=== PATIENT | male | born 1940 | race Caucasian/White ===

== ENCOUNTER 2018-06-20 09:08 | Inpatient (IN) | payer BC, OTHER ==
[2018-06-20] MEDS ORDERED: ALBUTEROL SO4 2.5/IPRATROPIUM 0.5 INH SOL 3 ML VIAL.NEB. NEB ONE ×4 (09:58→12:01)
--- NOTE | 2018-06-20 10:20 | PDOC ---
Documentation entered by Evan Márquez SCRIBE, acting as scribe for Libby Romero MD. Libby Romero MD: This documentation has been prepared by the eunicee, Evan Márquez SCRIBE, under my direction and personally reviewed by me in its entirety. I confirm that the documentation accurately reflects all work, treatment, procedures, and medical decision making performed by me. History of Present Illness - General Chief Complaint: Shortness of Breath Stated Complaint: Shortness of Breath Time Seen by Provider: 06/20/18 09:47 - History of Present Illness Initial Comments: 06/20/18 09:52 77 yo M h/o dementia, DM , prior smoking ( quit 20 yrs ago) here from dr Recinos office c/o cough, phlegm, sob for one week. pt does not wear home Oxygen. denies cp no n/v no leg swelling. 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 Past History - Past Medical History Allergies/Adverse Reactions: Allergies Allergy/AdvReac Type Severity Reaction Status Date / Time No Known Allergies Allergy Unverified 06/20/18 09:32 Home Medications: Ambulatory Orders Alprazolam 1 mg PO TID 06/20/18 Amlodipine Besylate 5 mg PO DAILY 06/20/18 Amoxicillin - [Amoxicillin 500mg Capsule -] 500 mg PO TID 06/20/18 Atorvastatin Ca [Lipitor] 10 mg PO HS 06/20/18 Carbidopa/Levodopa [Carbidopa-Levodopa 25-100 Tab] 1 each PO TID 06/20/18 Donepezil HCl 23 mg PO HS 06/20/18 Escitalopram Oxalate [Lexapro -] 10 mg PO DAILY 06/20/18 Finasteride 5 mg PO DAILY 06/20/18 Hydroxyzine HCl 50 mg PO TID 06/20/18 Lisinopril/Hydrochlorothiazide [Lisinopril-Hctz 20-25 mg Tab] 1 each PO DAILY Pantoprazole Sodium [Protonix] 40 mg PO DAILY 06/20/18 Pregabalin [Lyrica -] 75 mg PO BID 06/20/18 traZODone HCL [Trazodone HCl] 50 mg PO DAILY 06/20/18 COPD: No Dementia: Yes Diabetes: Yes GI Disorders: Yes (GERD) Disorders: Yes (BPH) HTN: Yes Psychiatric Problems: Yes (ANXIETY,DEPRESSION) Other medical history: PARKINSONS, DIABETIC NEUROPATHY - Suicide/Smoking/Psychosocial Hx Smoking History: Former smoker Have you smoked in the past 12 months: No If you are a former smoker, when did you quit?: 2003 Information on smoking cessation initiated: No Hx Alcohol Use: No Drug/Substance Use Hx: No Review of Systems - Review of Systems Constitutional: No: Chills, Diaphoresis, Fever HEENTM: No: Eye Pain Respiratory: Yes: Cough, Shortness of Breath, Wheezing, Productive cough Cardiac (ROS): No: Chest Pain, Edema Musculoskeletal: No: Back Pain, Gout All Other Systems: Reviewed and Negative *Physical Exam - Vital Signs Last Vital Signs Temp Pulse Resp BP Pulse Ox 97.9 F 73 20 146/53 L 92 L 06/20/18 09:26 06/20/18 09:26 06/20/18 09:26 06/20/18 09:26 06/20/18 09:33 - Physical Exam General Appearance: Yes: Appropriately Dressed HEENT: positive: Normal ENT Inspection Respiratory/Chest: positive: Crackles, Wheezing Cardiovascular: positive: Regular Rhythm, Regular Rate, S1, S2 Musculoskeletal: positive: Normal Inspection Extremity: positive: Normal Capillary Refill Integumentary: positive: Normal Color, Dry, Warm Neurologic: positive: Fully Oriented, Alert, Normal Mood/Affect Heart Score/ECG Review #1 General ECG Interpretation: Sinus Rhythm, Normal Rate (67), Normal Intervals, No acute ischemic changes ED Treatment Course - LABORATORY CBC & Chemistry Diagram: 06/20/18 10:10 06/20/18 10:10 Medical Decision Making - Medical Decision Making 06/20/18 09:55 77 yo male h/o DM prior smoking, parkinsons here for cough phlegm for one week and wheezing. noted to by hypoxic to 92% on 2 L NS. 06/20/18 10:20 differential pna, copd, chf, effusion, plan cxr labs duonebs ekg bnp. 06/20/18 10:43 xray with hazy right heart border, concerns for infiltrate, left base as well. will treat with ceftriaxone azithromycin. 06/20/18 10:44 d/w dr khan, states pt may require aprazolam 1 mg at night for sleeping. h/o adverse effects (hallucinations and sleepwalking with ambien) told to admit to [facility] or erik block. 06/20/18 10:46 06/20/18 11:28 d/w dr block, who thomas admit patient for dr Khan. pt xray wit infiltrate, givein ceftriaxone and azithromycin *DC/Admit/Observation/Transfer Diagnosis at time of Disposition: Pneumonia, Hypoxia - Discharge Dispostion Decision to Admit order: Yes - Referrals Referrals: Rey Khan MD [Primary Care Provider] - - Patient Instructions - Post Discharge Activity
[2018-06-20 10:25] LABS: BASO % 0.3 % (0-2.0); HEMATOCRIT 37.8 % (35.4-49); HEMOGLOBIN 13.3 GM/dL (11.7-16.9); LYMPH % 16.8 % (8-40); MCHC 35.2 g/dl (32.0-35.9); MEAN CELL VOLUME 91.1 fl (80-96); MEAN PLT VOLUME 8.9 fl (7.5-11.1); NEUT % 65.9 % (42.8-82.8); PLATELET COUNT 148 K/MM3 (134-434); RBC 4.15 M/mm3 (4.00-5.60); RDW 12.7 % (11.9-15.9); WHITE BLOOD COUNT 5.5 K/mm3 (4.0-10.0)
[2018-06-20 10:59] LABS: ALBUMIN 3.2 g/dl (3.4-5.0); ALK PHOS 67 U/L (45-117); ANION GAP 7 MMOL/L (8-16); BILIRUBIN,TOTAL 0.4 mg/dL (0.2-1); BLOOD UREA NITROGEN 16 mg/dL (7-18); CALCIUM 8.8 mg/dL (8.5-10.1); CHLORIDE 100 mmol/L (98-107); CO2 28 mmol/L (21-32); CREATININE 1.2 mg/dL (0.55-1.3); GLUCOSE,RANDOM 221 mg/dL (74-106); POTASSIUM 3.8 mmol/L (3.5-5.1); SGOT/AST 25 U/L (15-37); SGPT/ALT 24 U/L (13-61); SODIUM 136 mmol/L (136-145); TOT PROT 6.5 g/dl (6.4-8.2)
[2018-06-20] MEDS ORDERED: CEFTRIAXONE 1,000 MG in DEXTROSE 5%-WATER - 50 ML IVPB ONE (11:22)
[2018-06-20 11:23] LABS: N-TERMINAL BNP 98.9 pg/ml (5-450)
[2018-06-20] MEDS ORDERED: AZITHROMYCIN IVPB 500 MG in DEXTROSE 5%-WATER - 250 ML IVPB ONE (11:23)
--- NOTE | 2018-06-20 11:28 | HP ---
Admitting History and Physical - Primary Care Physician PCP: Rey Crystal - Admission Chief Complaint: sob History of Present Illness: History of Present Illness Initial Comments: 06/20/18 09:52 77 yo M h/o dementia, DM , prior smoking ( quit 20 yrs ago) here from dr Recinos office c/o cough, phlegm, sob for one week. pt does not wear home Oxygen. denies cp no n/v no leg swelling. 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 Cardiovascular: Yes: HTN Psych: Yes: Anxiety, Depression - Smoking History Smoking history: Former smoker Have you smoked in the past 12 months: No If you are a former smoker, when did you quit?: 2004 - Alcohol/Substance Use Hx Alcohol Use: No Home Medications - Allergies Allergies/Adverse Reactions: Allergies Allergy/AdvReac Type Severity Reaction Status Date / Time No Known Allergies Allergy Unverified 06/20/18 09:32 - Home Medications Home Medications: Ambulatory Orders Albuterol Sulfate [Albuterol Sulfate Hfa] 18 gm IH Q6H #7 [email or web address] 06/20/18 Alprazolam 1 mg PO TID 06/20/18 Amlodipine Besylate 5 mg PO DAILY 06/20/18 Amoxicillin - [Amoxicillin 500mg Capsule -] 500 mg PO TID 06/20/18 Atorvastatin Ca [Lipitor] 10 mg PO HS 06/20/18 Azithromycin [Zithromax Tri-Ike (3 DAYS) -] 500 mg PO DAILY #3 tablet 06/20/18 Carbidopa/Levodopa [Carbidopa-Levodopa 25-100 Tab] 1 each PO TID 06/20/18 Cefuroxime Axetil [Ceftin -] 500 mg PO Q12H #20 tablet 06/20/18 Donepezil HCl 23 mg PO HS 06/20/18 Escitalopram Oxalate [Lexapro -] 10 mg PO DAILY 06/20/18 Finasteride 5 mg PO DAILY 06/20/18 Lisinopril/Hydrochlorothiazide [Lisinopril-Hctz 20-25 mg Tab] 1 each PO DAILY Pantoprazole Sodium [Protonix] 40 mg PO DAILY 06/20/18 Pregabalin [Lyrica -] 75 mg PO BID 06/20/18 traZODone HCL [Trazodone HCl] 50 mg PO DAILY 06/20/18 Review of Systems - Review of Systems Constitutional: denies: Chills, Fever Cardiovascular: reports: Shortness of Breath Respiratory: reports: Cough Physical Examination Vital Signs: Vital Signs Temperature 97.9 F 06/20/18 09:26 Pulse Rate 73 06/20/18 09:26 Respiratory Rate 20 06/20/18 09:26 Blood Pressure 146/53 L 06/20/18 09:26 O2 Sat by Pulse Oximetry (%) 92 L 06/20/18 09:33 Constitutional: Yes: No Distress, Calm, Other (labored breathing) Cardiovascular: Yes: Regular Rate and Rhythm Respiratory: Yes: Diminished, Rhonchi Gastrointestinal: Yes: Normal Bowel Sounds, Soft, Abdomen, Obese. No: Tenderness Edema: No Labs: CBC, BMP 06/20/18 10:10 06/20/18 10:10 Imaging - Results Chest X-ray: Image Reviewed EKG: Image Reviewed (nsr) Problem List - Problems (1) Parkinsons disease Code(s): G20 - PARKINSON'S DISEASE (2) Anxiety Code(s): F41.9 - ANXIETY DISORDER, UNSPECIFIED (3) Hypoxia Code(s): R09.02 - HYPOXEMIA (4) Pneumonia Code(s): J18.9 - PNEUMONIA, UNSPECIFIED ORGANISM Assessment/Plan PLAN ON Iv antibiotics , nebs scheduled Pulmonary eval Low O2 sat -- on NC here continue with meds will need CT Chest Pt is adamant to go tomorrow for a retreat with priests- he is aware of the risks - may not be ready by tomorrow considering low O2 sat - he is even willing to sign AMA I spoke with as well I left a message with DR Bonilla Bañuelos vt for DVT prophylaxis
[2018-06-20] MEDS ORDERED: CEFTRIAXONE 1 GM/50 ML BAG ONE (12:02)
[2018-06-20] MEDS ORDERED: AZITHROMYCIN IVPB 500 MG/250 ML BAG IVPB ONE (12:02)
[2018-06-20] MEDS ORDERED: ALBUTEROL SO4 2.5/IPRATROPIUM 0.5 INH SOL 3 ML VIAL.NEB. NEB PRN (12:26)
--- NOTE | 2018-06-20 12:32 | EKG ---
Test Reason : Blood Pressure : / mmHG Vent. Rate : 067 BPM Atrial Rate : 067 BPM P-R Int : 156 ms QRS Dur : 088 ms QT Int : 404 ms P-R-T Axes : 051 016 041 degrees QTc Int : 426 ms NORMAL SINUS RHYTHM NORMAL ECG NO PREVIOUS ECGS AVAILABLE Confirmed by DEBBY ARTEAGA, ISABELLE ([id number]) on 06/20/2018 12:32:26 PM Referred By: Confirmed By:ISABELLE GUARDADO MD
[2018-06-20] MEDS ORDERED: ALPRAZolam 0.25 MG TABLET PO SCH ×2 (14:00)
[2018-06-20] MEDS ORDERED: hydrOXYzine HCL 25 MG TABLET (FP) PO SCH (14:00)
[2018-06-20 14:11] VITALS: BMI 24.5
[2018-06-20] MEDS: CARBIDOPA/LEVODOPA 25/100 TABLET (FP) PO SCH ×2 (15:20→21:28)
[2018-06-20] MEDS ORDERED: PT OWN MED DRAWER 7, Y5N ONE ×2 (15:23→21:16)
--- NOTE | 2018-06-20 15:55 | PN ---
Progress Note (short form) - Note Progress Note: PULMONARY CONSULTATION DICTATED 06/20/18 IMP HYPOXEMIA /DYSPNEA/COUGH R/O LLL PNEUMONIA,?BRONCHITIS PARKINSONS ANXIETY HTN PLAN IV ABX INHALED BRONCHODILATORS SHORT COURSE OF STEROIDS O2 CHEST CT CULTURES DR MAIER Problem List - Problems (1) SOB (shortness of breath) Code(s): R06.02 - SHORTNESS OF BREATH (2) Anxiety Code(s): F41.9 - ANXIETY DISORDER, UNSPECIFIED (3) Hypoxia Code(s): R09.02 - HYPOXEMIA (4) Parkinsons disease Code(s): G20 - PARKINSON'S DISEASE (5) Pneumonia Code(s): J18.9 - PNEUMONIA, UNSPECIFIED ORGANISM
[2018-06-20] MEDS ORDERED: ALBUTEROL SO4 2.5/IPRATROPIUM 0.5 INH SOL 3 ML VIAL.NEB. NEB SCH (16:00)
[2018-06-20] MEDS ORDERED: ALBUTEROL SO4 0.083% IH SOL 2.5 MG/3 ML VIAL.NEB. NEB PRN (16:05)
[2018-06-20] MEDS: ALPRAZolam 0.25 MG TABLET PO PRN (17:01)
[2018-06-20] MEDS: methylPREDNISolone NA SUCC 40 MG/1 ML VIAL IVPUSH SCH (17:01)
--- NOTE | 2018-06-20 17:18 | CONS ---
DATE OF CONSULTATION: 06/20/2018 DATE OF DICTATION: 06/20/2018 PULMONARY CONSULTATION REFERRING PHYSICIAN: Lindy Wharton M.D. HISTORY OF PRESENT ILLNESS: The patient is a 77-year-old white male with a past medical history of anxiety, diabetes, history of tobacco use, quit 20 years ago, admitted to [facility] with complaint of 1-week history of increasing shortness of breath, cough, chest congestion, sputum production. Patient states he was doing well for approximately a week when he started developing increasing shortness of breath, cough productive of white sputum. Denied any hemoptysis. He had also noted increasing wheezing and chest congestion. Initially he did not seek medical attention. He went to see PMD with the above complaints, at which time he was advised to go to the emergency room. In the ER , he had a chest x-ray performed which revealed possible left lower lobe pneumonia. He was started on antibiotics and transferred up to medical floor for further management. PAST MEDICAL HISTORY: Again includes dementia, diabetes, Parkinson's, hypertension, anxiety, depression. 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 REVIEW OF SYSTEMS: Positive cough. Positive chest congestion. No fever. No chills. Positive shortness of breath. No hemoptysis. No abdominal pain. No nausea, no vomiting. MEDICATION: Prior to admission include albuterol, alprazolam, amoxicillin, amlodipine, Zithromax, levodopa, Ceftin, donepezil, lisinopril, hydrochlorothiazide, pantoprazole, Lyrica and trazodone. Current medications include Zithromax, Prinivil, ceftriaxone, Lyrica, Lovenox, Desyrel, Xanax, DuoNeb, Norvasc, Sinemet , and Protonix, Proscar, hydrochlorothiazide. PHYSICAL EXAMINATION: GENERAL: The patient is a well-developed, well-nourished male, awake, alert, in no acute distress. He is afebrile. VITAL SIGNS: Blood pressure 148/58, respiratory rate 22, mildly dyspneic, and O2 saturation is 91% on 2 L. HEENT: Normocephalic, atraumatic. NECK: Supple. HEART: Regular S1, S2. CHEST: Bilateral rhonchi and wheezes. ABDOMEN: Soft, bowel sounds positive. EXTREMITIES: No cyanosis, edema. LABORATORY: WBC is 5.5, hemoglobin 13.3, hematocrit 37.8 with platelet count of 148,000. BUN 16, creatinine 1.2. Chest x-ray questionable infiltrates versus atelectasis left base. IMPRESSION: Hypoxemia, cough, chest congestion, likely: 1. Rule out pneumonia, left lower lobe . 2. Acute bronchitis. 3. Parkinson's. 4. Anxiety. 5. Hypertension. PLAN: IV antibiotics. Inhaled bronchodilator. Supplemental O2. Short course of Medrol. Chest CT. Obtain cultures. SHI MAIER M.D. [id number] MTDD
[2018-06-20] MEDS: ALBUTEROL SO4 2.5/IPRATROPIUM 0.5 INH SOL 3 ML VIAL.NEB. NEB SCH (20:15)
[2018-06-20] MEDS: ATORVASTATIN CA 10 MG TABLET (FP) PO SCH (21:28)
[2018-06-20] MEDS: PREGABALIN 75 MG CAPSULE PO SCH (21:28)
[2018-06-20] MEDS ORDERED: PATIENT'S OWN MEDICATION (NON-FORMULARY) (Donepezil Hcl [Donepezil Hcl] 23 MG) PO SCH (22:00)
[2018-06-21] MEDS: ALPRAZolam 0.25 MG TABLET PO PRN ×2 (00:59→17:26)
[2018-06-21] MEDS: methylPREDNISolone NA SUCC 40 MG/1 ML VIAL IVPUSH SCH ×3 (02:31→17:20)
[2018-06-21] MEDS ORDERED: PT OWN MED DRAWER 7, Y5N ONE ×3 (05:08→14:44)
[2018-06-21] MEDS: CARBIDOPA/LEVODOPA 25/100 TABLET (FP) PO SCH ×3 (05:28→21:55)
[2018-06-21 07:14] LABS: BASO % 0.1 % (0-2.0); HEMATOCRIT 37.7 % (35.4-49); HEMOGLOBIN 13.5 GM/dL (11.7-16.9); LYMPH % 9.8 % (8-40); MCH 32.1 pg (25.7-33.7); MCHC 35.9 g/dl (32.0-35.9); MEAN CELL VOLUME 89.3 fl (80-96); MONO % 3.1 % (3.8-10.2); PLATELET COUNT 150 K/MM3 (134-434); RBC 4.22 M/mm3 (4.00-5.60); RDW 12.3 % (11.9-15.9)
[2018-06-21] MEDS: ALBUTEROL SO4 2.5/IPRATROPIUM 0.5 INH SOL 3 ML VIAL.NEB. NEB SCH ×4 (07:25→20:15)
[2018-06-21 07:50] LABS: ALBUMIN 3.3 g/dl (3.4-5.0); ALK PHOS 68 U/L (45-117); ANION GAP 7 MMOL/L (8-16); BILIRUBIN,TOTAL 0.4 mg/dL (0.2-1); BLOOD UREA NITROGEN 20 mg/dL (7-18); CALCIUM 9.4 mg/dL (8.5-10.1); CHLORIDE 101 mmol/L (98-107); CO2 28 mmol/L (21-32); CREATININE 1.1 mg/dL (0.55-1.3); POTASSIUM 4.1 mmol/L (3.5-5.1); SGOT/AST 18 U/L (15-37); SGPT/ALT 12 U/L (13-61); SODIUM 136 mmol/L (136-145)
[2018-06-21] MEDS ORDERED: cefTRIAXone SODIUM 1 GM VIAL ONE (08:17)
[2018-06-21] MEDS ORDERED: DEXTROSE 5%-WATER - 50 ML IVPB ONE (08:17)
[2018-06-21] MEDS: FINASTERIDE 5 MG TABLET (FP) PO SCH (09:03)
[2018-06-21] MEDS: HYDROCHLOROTHIAZIDE 25 MG TABLET (FP) PO SCH (09:03)
[2018-06-21] MEDS: amLODIPine BESYLATE 5 MG TABLET (FP) PO SCH (09:03)
[2018-06-21] MEDS: ENOXAPARIN NA (PORCINE) 40 MG/0.4 ML DISP.SYRIN SQ SCH (09:03)
[2018-06-21] MEDS: LISINOPRIL 20 MG TABLET (FP) PO SCH (09:03)
[2018-06-21] MEDS: ESCITALOPRAM OXALATE 10 MG TABLET (FP) PO SCH (09:03)
[2018-06-21] MEDS: PANTOPRAZOLE 40 MG TABLET (FP) PO SCH (09:03)
[2018-06-21] MEDS: PREGABALIN 75 MG CAPSULE PO SCH ×2 (09:03→21:56)
[2018-06-21] MEDS: AZITHROMYCIN IVPB 500 MG/250 ML BAG IVPB SCH (09:04)
[2018-06-21 09:41] LABS: GLUCOSE,RANDOM 367 mg/dL (74-106)
[2018-06-21] MEDS ORDERED: AZITHROMYCIN IVPB 500 MG/250 ML BAG IVPB SCH (10:00)
[2018-06-21] MEDS ORDERED: CEFTRIAXONE 1 GM in DEXTROSE 5%-WATER - 50 ML IVPB SCH (10:00)
[2018-06-21] MEDS: CEFTRIAXONE 1 GM in DEXTROSE 5%-WATER - 50 ML IVPB SCH (10:30)
--- NOTE | 2018-06-21 11:15 | PN ---
Progress Note (short form) - Note Progress Note: PULMONARY Denies shortness of breath. +nonproductive cough. No fevers or chills. Wants to go home. CT chest reviewed, showing patchy infiltrates and nonspecific nodules. Vital Signs Period Temp Pulse Resp BP Sys/Bryant Pulse Ox Last 24 Hr 97.6 F-99.0 F 60-79 20-22 133-154/52-70 90-91 Gen: NAD at rest Heart: RRR Lung: distant breath sounds Abd: soft, nontender Ext: no edema CBC, BMP 06/21/18 06:30 06/21/18 06:30 Active Medications Albuterol Sulfate (Ventolin 0.083% Nebulizer Soln -) 1 amp NEB Q4H PRN PRN Reason: SHORT OF BREATH/WHEEZING Albuterol/Ipratropium (Duoneb -) 1 amp NEB RQID [facility] Last Admin: 06/21/18 07:25 Dose: 1 amp Alprazolam (Xanax -) 1 mg PO Q8H PRN PRN Reason: ANXIETY Last Admin: 06/21/18 00:59 Dose: 1 mg Amlodipine Besylate (Norvasc -) 5 mg PO DAILY [facility] Last Admin: 06/21/18 09:03 Dose: 5 mg Atorvastatin Calcium (Lipitor -) 10 mg PO HS [facility] Last Admin: 06/20/18 21:28 Dose: 10 mg Carbidopa/Levodopa (Sinemet 25/100 -) 1 each PO TID [facility] Last Admin: 06/21/18 05:28 Dose: 1 each Enoxaparin Sodium (Lovenox -) 40 mg SQ DAILY [facility] Last Admin: 06/21/18 09:03 Dose: 40 mg Escitalopram Oxalate (Lexapro -) 10 mg PO DAILY [facility] Last Admin: 06/21/18 09:03 Dose: 10 mg Finasteride (Proscar -) 5 mg PO DAILY [facility] Last Admin: 06/21/18 09:03 Dose: 5 mg Hydrochlorothiazide (Hctz -) 25 mg PO DAILY [facility] Last Admin: 06/21/18 09:03 Dose: 25 mg Azithromycin (Zithromax 500mg Ivpb (Pre-Docked)) 500 mg in 250 mls @ 250 mls/ hr IVPB DAILY@0900 [facility] Last Admin: 06/21/18 09:04 Dose: 250 mls/hr Ceftriaxone Sodium 1 gm/ (Dextrose) 50 mls @ 100 mls/hr IVPB DAILY@0900 [facility] Last Admin: 06/21/18 10:30 Dose: 100 mls/hr Lisinopril (Prinivil) 20 mg PO DAILY [facility] Last Admin: 06/21/18 09:03 Dose: 20 mg Methylprednisolone Sodium Succinate (Solu-Medrol -) 40 mg IVPUSH Q8H-IV [facility] Last Admin: 06/21/18 09:03 Dose: 40 mg Non-Formulary Medication (Donepezil Hcl [Donepezil Hcl]) 23 mg PO HS [facility] Pantoprazole Sodium (Protonix -) 40 mg PO DAILY [facility] Last Admin: 06/21/18 09:03 Dose: 40 mg Pregabalin (Lyrica -) 75 mg PO BID [facility] Last Admin: 06/21/18 09:03 Dose: 75 mg Trazodone HCl (Desyrel -) 50 mg PO [facility] A/P Pneumonia r/o Acute COPD Exacerbation Parkinsons HTN Anxiety - can change steroids to PO prednisone 40mg daily and taper as outpt - inhaled bronchodilators - antibiotics - O2 to keep Spo2 >90% - check ambulatory SpO2 on room air to assess for home O2 - outpt PFTs - will need outpt f/u of chest imaging - can be discharged on prednisone and antibiotics pending home O2 evaluation from pulmonary standpoint
--- NOTE | 2018-06-21 13:04 | PN ---
Progress Note (short form) - Note Progress Note: at bedside Pt is on 2 L NC-- O2 sat 91-92% RA O2 sat 88% Vital Signs - 24 hr 06/20/18 06/20/18 06/20/18 14:00 17:26 21:00 Temperature 97.8 F 99.0 F Pulse Rate 78 71 Respiratory 22 H 20 20 Rate Blood Pressure 148/58 L 133/52 L O2 Sat by Pulse 91 L 90 L Oximetry (%) 06/20/18 06/21/18 06/21/18 21:33 06:00 09:00 Temperature 98.5 F 97.6 F Pulse Rate 79 60 Respiratory 20 20 Rate Blood Pressure 154/60 151/70 O2 Sat by Pulse 90 L Oximetry (%) 06/21/18 10:00 Temperature 98.1 F Pulse Rate 89 Respiratory 20 Rate Blood Pressure 144/68 O2 Sat by Pulse Oximetry (%) Current Medications Generic Name Dose Route Start Last Admin Trade Name Freq PRN Reason Stop Dose Admin Albuterol Sulfate 1 amp 06/20/18 16:05 Ventolin 0.083% Nebulizer Soln - NEB Q4H PRN SHORT OF BREATH/WHEEZING Albuterol/Ipratropium 1 amp 06/20/18 20:00 06/21/18 11:35 Duoneb - NEB 1 amp RQID [facility] Administration Alprazolam 1 mg 06/20/18 13:50 06/21/18 00:59 Xanax - PO 1 mg Q8H PRN Administration ANXIETY Amlodipine Besylate 5 mg 06/21/18 10:00 06/21/18 09:03 Norvasc - PO 5 mg DAILY [facility] Administration Atorvastatin Calcium 10 mg 06/20/18 22:00 06/20/18 21:28 Lipitor - PO 10 mg HS [facility] Administration Carbidopa/Levodopa 1 each 06/20/18 14:00 06/21/18 05:28 Sinemet 25/100 - PO 1 each TID [facility] Administration Enoxaparin Sodium 40 mg 06/21/18 10:00 06/21/18 09:03 Lovenox - SQ 40 mg DAILY [facility] Administration Escitalopram Oxalate 10 mg 06/21/18 10:00 06/21/18 09:03 Lexapro - PO 10 mg DAILY [facility] Administration Finasteride 5 mg 06/21/18 10:00 06/21/18 09:03 Proscar - PO 5 mg DAILY [facility] Administration Hydrochlorothiazide 25 mg 06/21/18 10:00 06/21/18 09:03 Hctz - PO 25 mg DAILY [facility] Administration Azithromycin 500 mg in 250 mls @ 250 mls/hr 06/21/18 09:00 06/21/18 09:04 Zithromax 500mg Ivpb (Pre-Docked) IVPB 250 mls/hr DAILY@0900 [facility] Administration Ceftriaxone Sodium 1 gm/ 50 mls @ 100 mls/hr 06/21/18 09:00 06/21/18 10:30 Dextrose IVPB 100 mls/hr DAILY@0900 [facility] Administration Lisinopril 20 mg 06/21/18 10:00 06/21/18 09:03 Prinivil PO 20 mg DAILY [facility] Administration Methylprednisolone Sodium Succinate 40 mg 06/20/18 18:00 06/21/18 09:03 Solu-Medrol - IVPUSH 40 mg Q8H-IV [facility] Administration Non-Formulary Medication 23 mg 06/20/18 22:00 Donepezil Hcl [Donepezil Hcl] PO [facility] Pantoprazole Sodium 40 mg 06/21/18 10:00 06/21/18 09:03 Protonix - PO 40 mg DAILY [facility] Administration Pregabalin 75 mg 06/20/18 22:00 06/21/18 09:03 Lyrica - PO 75 mg BID [facility] Administration Trazodone HCl 50 mg 06/21/18 22:00 Desyrel - PO HS [facility] Laboratory Results - last 24 hr 06/21/18 06/21/18 06:30 06:30 WBC 5.0 RBC 4.22 Hgb 13.5 Hct 37.7 MCV 89.3 MCH 32.1 MCHC 35.9 RDW 12.3 Plt Count 150 MPV 9.0 Absolute Neuts (auto) 4.4 Neutrophils % 87.0 H D Lymphocytes % 9.8 D Monocytes % 3.1 L Eosinophils % 0.0 D Basophils % 0.1 Nucleated RBC % 0 Sodium 136 Potassium 4.1 Chloride 101 Carbon Dioxide 28 Anion Gap 7 L BUN 20 H Creatinine 1.1 Creat Clearance w eGFR 64.74 Random Glucose 367 H* Calcium 9.4 Total Bilirubin 0.4 AST 18 ALT 12 L Alkaline Phosphatase 68 Total Protein 7.0 Albumin 3.3 L No pallor labored breathing cough+ S1 S2 RRR Lungs ronchi + decreased Abd- soft, NT no edema PLAN Continue with iv antibiotics,Nebs, O2 check if pt needs home O2 I convinced him to stay till Monday-- pt is still tachypneic, low O2 sat -- does not appear to be a safe discharge today elevated sugars-- check BGM, check A1C Pulmonary eval noted -- on IV solumedrol Neurology eval for Parkinsons, Dementia CT chest noted-- spoke with -- will need to repeat in 3 weeks after antibiotics completed Problem List - Problems (1) Parkinsons disease Code(s): G20 - PARKINSON'S DISEASE (2) Anxiety Code(s): F41.9 - ANXIETY DISORDER, UNSPECIFIED (3) Hypoxia Code(s): R09.02 - HYPOXEMIA (4) Pneumonia Code(s): J18.9 - PNEUMONIA, UNSPECIFIED ORGANISM
[2018-06-21 17:03] LABS: ARTERIAL BLD GAS O2 SATURATION 90.6 % (95-98); ARTERIAL BLOOD GAS BASE EXCESS -4.2 meq/l (-2-2); ARTERIAL BLOOD GAS PCO2 33.2 mmHg (35-45); ARTERIAL BLOOD GAS PO2 63.4 mmHg (80-105); ARTERIAL BLOOD GAS pH 7.39 (7.35-7.45)
[2018-06-21 17:05] LABS: ALLENS TEST POSITIVE
[2018-06-21 19:24] LABS: ANION GAP 15 MMOL/L (8-16); BLOOD UREA NITROGEN 27 mg/dL (7-18); CALCIUM 9.4 mg/dL (8.5-10.1); CHLORIDE 97 mmol/L (98-107); CO2 21 mmol/L (21-32); CREATININE 1.6 mg/dL (0.55-1.3); POTASSIUM 3.7 mmol/L (3.5-5.1); SODIUM 132 mmol/L (136-145)
[2018-06-21 19:31] LABS: GLUCOSE,RANDOM 769 mg/dL (74-106)
[2018-06-21] MEDS ORDERED: INSULIN (NOVOLOG) ASPART 100 UNITS/ML 10ML VIAL SQ STA (19:34)
[2018-06-21] MEDS ORDERED: diphenhydrAMINE HCL 25 MG CAPSULE (FP) PO ONE (19:48)
[2018-06-21] MEDS: ATORVASTATIN CA 10 MG TABLET (FP) PO SCH (21:56)
[2018-06-21] MEDS: traZODone HCL 50 MG TABLET (FP) PO SCH (21:56)
[2018-06-22] MEDS ORDERED: INSULIN (NOVOLOG) ASPART 100 UNITS/ML 10ML VIAL SQ STA (01:02)
[2018-06-22] MEDS: methylPREDNISolone NA SUCC 40 MG/1 ML VIAL IVPUSH SCH ×2 (01:09→10:41)
[2018-06-22] MEDS: ALPRAZolam 0.25 MG TABLET PO PRN ×3 (01:09→21:34)
[2018-06-22] MEDS: CARBIDOPA/LEVODOPA 25/100 TABLET (FP) PO SCH ×3 (05:48→21:36)
[2018-06-22] MEDS ORDERED: INSULIN (NOVOLOG) ASPART 100 UNITS/ML 10ML VIAL SQ ONE ×3 (05:54→23:33)
[2018-06-22] MEDS: ALBUTEROL SO4 2.5/IPRATROPIUM 0.5 INH SOL 3 ML VIAL.NEB. NEB SCH ×4 (07:45→20:42)
[2018-06-22] MEDS ORDERED: cefTRIAXone SODIUM 1 GM VIAL ONE ×2 (08:56→10:37)
[2018-06-22] MEDS ORDERED: DEXTROSE 5%-WATER - 50 ML IVPB ONE ×2 (08:56→10:38)
[2018-06-22] MEDS: AZITHROMYCIN IVPB 500 MG/250 ML BAG IVPB SCH (08:58)
[2018-06-22] MEDS: CEFTRIAXONE 1 GM in DEXTROSE 5%-WATER - 50 ML IVPB SCH (10:39)
[2018-06-22] MEDS: ENOXAPARIN NA (PORCINE) 40 MG/0.4 ML DISP.SYRIN SQ SCH (10:40)
[2018-06-22] MEDS: PREGABALIN 75 MG CAPSULE PO SCH ×2 (10:40→21:34)
[2018-06-22] MEDS: LISINOPRIL 20 MG TABLET (FP) PO SCH (10:41)
[2018-06-22] MEDS: ESCITALOPRAM OXALATE 10 MG TABLET (FP) PO SCH (10:42)
[2018-06-22] MEDS: PANTOPRAZOLE 40 MG TABLET (FP) PO SCH (10:42)
[2018-06-22] MEDS: HYDROCHLOROTHIAZIDE 25 MG TABLET (FP) PO SCH (10:42)
[2018-06-22] MEDS: amLODIPine BESYLATE 5 MG TABLET (FP) PO SCH (10:42)
[2018-06-22] MEDS: FINASTERIDE 5 MG TABLET (FP) PO SCH (10:43)
[2018-06-22] MEDS ORDERED: INSULIN (LEVEMIR) 100 UNITS/ML UNITS SQ ONE (11:06)
--- NOTE | 2018-06-22 11:14 | PN ---
Progress Note (short form) - Note Progress Note: pt seen/ examined chart reviewed. awake. feels better decreased sob. denies cp chart reviewed Vital Signs Temp 97.6 F 06/22/18 10:00 Pulse 62 06/22/18 10:00 Resp 20 06/22/18 10:00 BP 137/60 06/22/18 10:00 Pulse Ox 98 06/22/18 09:00 Intake & Output 06/21/18 06/21/18 06/22/18 11:59 23:59 11:59 Intake Total 200 1050 50 Output Total 1000 1100 Balance -800 -50 50 Intake: IVPB 300 Oral 200 750 50 Output: Urine 1000 1100 Void 1000 1100 Other: Voiding Method Toilet Toilet Toilet # Unmeasured Voids Void 2 1 Bowel Movement No Yes # Bowel Movements 1 Active Medications Albuterol Sulfate (Ventolin 0.083% Nebulizer Soln -) 1 amp NEB Q4H PRN PRN Reason: SHORT OF BREATH/WHEEZING Albuterol/Ipratropium (Duoneb -) 1 amp NEB RQID [facility] Last Admin: 06/22/18 07:45 Dose: 1 amp Alprazolam (Xanax -) 1 mg PO Q8H PRN PRN Reason: ANXIETY Last Admin: 06/22/18 01:09 Dose: 1 mg Amlodipine Besylate (Norvasc -) 5 mg PO DAILY [facility] Last Admin: 06/22/18 10:42 Dose: 5 mg Atorvastatin Calcium (Lipitor -) 10 mg PO HS [facility] Last Admin: 06/21/18 21:56 Dose: 10 mg Carbidopa/Levodopa (Sinemet 25/100 -) 1 each PO TID [facility] Last Admin: 06/22/18 05:48 Dose: 1 each Enoxaparin Sodium (Lovenox -) 40 mg SQ DAILY [facility] Last Admin: 06/22/18 10:40 Dose: 40 mg Escitalopram Oxalate (Lexapro -) 10 mg PO DAILY [facility] Last Admin: 06/22/18 10:42 Dose: 10 mg Finasteride (Proscar -) 5 mg PO DAILY [facility] Last Admin: 06/22/18 10:43 Dose: 5 mg Hydrochlorothiazide (Hctz -) 25 mg PO DAILY [facility] Last Admin: 06/22/18 10:42 Dose: 25 mg Azithromycin (Zithromax 500mg Ivpb (Pre-Docked)) 500 mg in 250 mls @ 250 mls/ hr IVPB DAILY@0900 [facility] Last Admin: 06/22/18 08:58 Dose: 250 mls/hr Ceftriaxone Sodium 1 gm/ (Dextrose) 50 mls @ 100 mls/hr IVPB DAILY@0900 [facility] Last Admin: 06/22/18 10:39 Dose: 100 mls/hr Insulin Detemir (Levemir Vial) 10 units SQ ONCE ONE Stop: 06/22/18 11:07 Insulin Detemir (Levemir Vial) 10 units SQ HS [facility] Lisinopril (Prinivil) 20 mg PO DAILY [facility] Last Admin: 06/22/18 10:41 Dose: 20 mg Methylprednisolone Sodium Succinate (Solu-Medrol -) 40 mg IVPUSH BID [facility] Non-Formulary Medication (Donepezil Hcl [Donepezil Hcl]) 23 mg PO [facility] Pantoprazole Sodium (Protonix -) 40 mg PO DAILY [facility] Last Admin: 06/22/18 10:42 Dose: 40 mg Pregabalin (Lyrica -) 75 mg PO BID [facility] Last Admin: 06/22/18 10:40 Dose: 75 mg Trazodone HCl (Desyrel -) 50 mg PO HS [facility] Last Admin: 06/21/18 21:56 Dose: 50 mg CBC, BMP 06/21/18 06:30 06/21/18 18:15 bgm -- reviewed Microbiology 06/20/18 10:15 Blood Culture - Preliminary Blood - Peripheral Venous NO GROWTH OBTAINED AFTER 48 HOURS, INCUBATION TO CONTINUE FOR 3 DAYS. 06/20/18 10:15 Blood Culture - Preliminary Blood - Peripheral Venous NO GROWTH OBTAINED AFTER 48 HOURS, INCUBATION TO CONTINUE FOR 3 DAYS. 06/20/18 14:25 Legionella Antigen - Final Urine For Antigen Detection Streptococcus pneumoniae Antigen (M - Final Physical Exam S1 S2 RRR Lungs ronchi -- Abd- soft, NT no edema. Alert/ awake Problem List - Problems (1) Parkinsons disease Code(s): G20 - PARKINSON'S DISEASE (2) Anxiety Code(s): F41.9 - ANXIETY DISORDER, UNSPECIFIED (3) Hypoxia Code(s): R09.02 - HYPOXEMIA (4) Pneumonia Code(s): J18.9 - PNEUMONIA, UNSPECIFIED ORGANISM A/P Better Taper steroids abx repeat ct cheat in month or so add basal insulin monitor bgm daily oob - chair will follow
[2018-06-22] MEDS ORDERED: PT OWN MED DRAWER 7, Y5N ONE (15:01)
--- NOTE | 2018-06-22 16:01 | PN ---
Progress Note (short form) - Note Progress Note: PULMONARY OOB to chair appears stable vss/afebrile Gen: NAD at rest Heart: RRR Lung: distant breath sounds Abd: soft, nontender Ext: no edema labs/meds/notes reviewed A/P Pneumonia r/o Acute COPD Exacerbation Parkinsons HTN Anxiety - PO prednisone 40mg daily - inhaled bronchodilators - antibiotics - O2 to keep Spo2 >90% - outpt PFTs - will need outpt f/u of chest imaging - can be discharged on prednisone and antibiotics - will repeat spo2/pre/post R DAVE ARTEAGA
[2018-06-22] MEDS: predniSONE 10 MG TABLET (UD) PO SCH (16:25)
[2018-06-22] MEDS: INSULIN SLIDING SCALE (NOVOLOG) 1 VIAL SQ SCH (16:25)
--- NOTE | 2018-06-22 17:08 | CON.NEURO ---
Consult Consult Specialty:: NEUROLOGY-JESÚS ARTEAGA - History of Present Illness History of Present Illness: 77 yo M h/o dementia, DM , prior smoking ( quit 20 yrs ago) here from dr Recinos office c/o cough, phlegm, sob for one week. pt does not wear home Oxygen. denies cp no n/v no leg swelling. 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 He has a long hx. of PD, well treated with Sinemet. He has had persistent hyperglycemia and admitted with pneumonia. States he fels 'confused". No other complaints. - Past Medical History [employer]: Yes: Parkinson's Cardio/Vascular: Yes: HTN Psych: Yes: Anxiety, Depression - Alcohol/Substance Use Hx Alcohol Use: No - Smoking History Smoking history: Former smoker Have you smoked in the past 12 months: No If you are a former smoker, when did you quit?: 2003 Home Medications - Allergies Allergies/Adverse Reactions: Allergies Allergy/AdvReac Type Severity Reaction Status Date / Time No Known Allergies Allergy Unverified 06/20/18 09:32 - Home Medications Home Medications: Ambulatory Orders Albuterol Sulfate [Albuterol Sulfate Hfa] 18 gm IH Q6H #7 hfa.aer.ad 06/20/18 Alprazolam 1 mg PO TID 06/20/18 Amlodipine Besylate 5 mg PO DAILY 06/20/18 Amoxicillin - [Amoxicillin 500mg Capsule -] 500 mg PO TID 06/20/18 Atorvastatin Ca [Lipitor] 10 mg PO HS 06/20/18 Azithromycin [Zithromax Tri-Ike (3 DAYS) -] 500 mg PO DAILY #3 tablet 06/20/18 Carbidopa/Levodopa [Carbidopa-Levodopa 25-100 Tab] 1 each PO TID 06/20/18 Cefuroxime Axetil [Ceftin -] 500 mg PO Q12H #20 tablet 06/20/18 Donepezil HCl 23 mg PO HS 06/20/18 Escitalopram Oxalate [Lexapro -] 10 mg PO DAILY 06/20/18 Finasteride 5 mg PO DAILY 06/20/18 Lisinopril/Hydrochlorothiazide [Lisinopril-Hctz 20-25 mg Tab] 1 each PO DAILY Pantoprazole Sodium [Protonix] 40 mg PO DAILY 06/20/18 Pregabalin [Lyrica -] 75 mg PO BID 06/20/18 traZODone HCL [Trazodone HCl] 50 mg PO DAILY 06/20/18 Physical Exam-Neuro Vital Signs: Vital Signs Temperature 97.9 F 06/22/18 13:56 Pulse Rate 65 06/22/18 13:56 Respiratory Rate 20 06/22/18 13:56 Blood Pressure 138/55 L 06/22/18 13:56 O2 Sat by Pulse Oximetry (%) 98 06/22/18 09:00 Labs: CBC, BMP 06/21/18 06:30 06/21/18 18:15 - Neuro Exam Level Of Consciousness: Yes: Oriented to Person, Oriented to Place Eyes: Yes: DONYA Speech: WNL Mini Mental Exam: Inattentive, impaired STM/concentration. DTR's: 1+ Left Bicep, 1+ Right Bicep, 1+ Left Tricep, 1+ Right Tricep, 1+ Left Brachioradialis, 1+ Right Brachioradialis Response to light touch: Normal Response to pain prick: Normal Motor Strength: 5/5: Left Arm, Right Arm, Left Leg, Right Leg Gait: Normal (No tremors, no cogwheel rigidity noted.) Assessment/Plan Pt. with PD, mild associated dementia, now appears encephalopathic, likely due to comb.of hyperglycemia/pneumonia. Would cont. current Sinemet regimen, mental status will likely improve as both these entities improve. Thank you, Jose C Beth MD
[2018-06-22] MEDS: traZODone HCL 50 MG TABLET (FP) PO SCH (21:34)
[2018-06-22] MEDS: ATORVASTATIN CA 10 MG TABLET (FP) PO SCH (21:35)
[2018-06-22] MEDS ORDERED: INSULIN (LEVEMIR) 100 UNITS/ML UNITS SQ SCH (22:00)
[2018-06-22] MEDS ORDERED: methylPREDNISolone NA SUCC 40 MG/1 ML VIAL IVPUSH SCH (22:00)
[2018-06-23] MEDS ORDERED: MELATONIN 5 MG TABLETS PO ONE (00:58)
[2018-06-23] MEDS: CARBIDOPA/LEVODOPA 25/100 TABLET (FP) PO SCH ×3 (06:06→22:38)
[2018-06-23] MEDS: INSULIN SLIDING SCALE (NOVOLOG) 1 VIAL SQ SCH ×3 (06:10→16:25)
[2018-06-23 08:05] LABS: BASO % 0.1 % (0-2.0); HEMATOCRIT 35.9 % (35.4-49); HEMOGLOBIN 12.9 GM/dL (11.7-16.9); LYMPH % 5.7 % (8-40); MCH 32.2 pg (25.7-33.7); MCHC 35.9 g/dl (32.0-35.9); MEAN CELL VOLUME 89.8 fl (80-96); MEAN PLT VOLUME 9.7 fl (7.5-11.1); MONO % 5.9 % (3.8-10.2); NEUT % 88.3 % (42.8-82.8); PLATELET COUNT 185 K/MM3 (134-434); RDW 12.4 % (11.9-15.9); WHITE BLOOD COUNT 10.4 K/mm3 (4.0-10.0)
[2018-06-23] MEDS ORDERED: DEXTROSE 5%-WATER - 50 ML IVPB ONE (08:19)
[2018-06-23] MEDS ORDERED: cefTRIAXone SODIUM 1 GM VIAL ONE (08:19)
[2018-06-23] MEDS: CEFTRIAXONE 1 GM in DEXTROSE 5%-WATER - 50 ML IVPB SCH (08:22)
[2018-06-23] MEDS: AZITHROMYCIN IVPB 500 MG/250 ML BAG IVPB SCH (08:22)
[2018-06-23] MEDS: ALBUTEROL SO4 2.5/IPRATROPIUM 0.5 INH SOL 3 ML VIAL.NEB. NEB SCH ×4 (08:31→20:30)
[2018-06-23] MEDS: LISINOPRIL 20 MG TABLET (FP) PO SCH (08:59)
[2018-06-23] MEDS: ENOXAPARIN NA (PORCINE) 40 MG/0.4 ML DISP.SYRIN SQ SCH (08:59)
[2018-06-23] MEDS: PANTOPRAZOLE 40 MG TABLET (FP) PO SCH (08:59)
[2018-06-23] MEDS: HYDROCHLOROTHIAZIDE 25 MG TABLET (FP) PO SCH (08:59)
[2018-06-23] MEDS: PREGABALIN 75 MG CAPSULE PO SCH ×2 (08:59→22:38)
[2018-06-23] MEDS: ESCITALOPRAM OXALATE 10 MG TABLET (FP) PO SCH (08:59)
[2018-06-23] MEDS: predniSONE 10 MG TABLET (UD) PO SCH (09:00)
[2018-06-23] MEDS: amLODIPine BESYLATE 5 MG TABLET (FP) PO SCH (09:00)
[2018-06-23] MEDS: FINASTERIDE 5 MG TABLET (FP) PO SCH (09:00)
[2018-06-23 09:34] LABS: ALBUMIN 3.2 g/dl (3.4-5.0); ALK PHOS 62 U/L (45-117); ANION GAP 7 MMOL/L (8-16); BILIRUBIN,TOTAL 0.3 mg/dL (0.2-1); BLOOD UREA NITROGEN 31 mg/dL (7-18); CALCIUM 9.2 mg/dL (8.5-10.1); CHLORIDE 103 mmol/L (98-107); CO2 26 mmol/L (21-32); CREATININE 0.9 mg/dL (0.55-1.3); POTASSIUM 3.6 mmol/L (3.5-5.1); SGOT/AST 25 U/L (15-37); SGPT/ALT 11 U/L (13-61); SODIUM 136 mmol/L (136-145); TOT PROT 6.5 g/dl (6.4-8.2)
[2018-06-23 09:39] LABS: GLUCOSE,RANDOM 305 mg/dL (74-106)
--- NOTE | 2018-06-23 11:02 | PN ---
Progress Note (short form) - Note Progress Note: at bedside Pt is on 2 L NC-- O2 sat 93% wants to go home was confused and could not sleep at night per Vital Signs - 24 hr 06/22/18 06/22/18 06/22/18 13:56 18:07 18:58 Temperature 97.9 F 98.1 F Pulse Rate 65 104 H 84 Respiratory 20 20 Rate Blood Pressure 138/55 L 135/74 O2 Sat by Pulse 94 L Oximetry (%) 06/22/18 06/22/18 06/23/18 21:00 22:00 06:00 Temperature 98 F 97.8 F Pulse Rate 83 58 L Respiratory 20 20 20 Rate Blood Pressure 128/59 L 140/62 O2 Sat by Pulse 95 Oximetry (%) 06/23/18 06/23/18 09:00 09:59 Temperature 98.0 F Pulse Rate 62 Respiratory 20 Rate Blood Pressure 145/70 O2 Sat by Pulse 93 L Oximetry (%) Current Medications Generic Name Dose Route Start Last Admin Trade Name Freq PRN Reason Stop Dose Admin Albuterol Sulfate 1 amp 06/20/18 16:05 Ventolin 0.083% Nebulizer Soln - NEB Q4H PRN SHORT OF BREATH/WHEEZING Albuterol/Ipratropium 1 amp 06/20/18 20:00 06/23/18 08:31 Duoneb - NEB 1 amp RQID [facility] Administration Alprazolam 1 mg 06/20/18 13:50 06/22/18 21:34 Xanax - PO 1 mg Q8H PRN Administration ANXIETY Amlodipine Besylate 5 mg 06/21/18 10:00 06/23/18 09:00 Norvasc - PO 5 mg DAILY [facility] Administration Atorvastatin Calcium 10 mg 06/20/18 22:00 06/22/18 21:35 Lipitor - PO 10 mg HS [facility] Administration Carbidopa/Levodopa 1 each 06/20/18 14:00 06/23/18 06:06 Sinemet 25/100 - PO 1 each TID [facility] Administration Enoxaparin Sodium 40 mg 06/21/18 10:00 06/23/18 08:59 Lovenox - SQ 40 mg DAILY [facility] Administration Escitalopram Oxalate 10 mg 06/21/18 10:00 06/23/18 08:59 Lexapro - PO 10 mg DAILY [facility] Administration Finasteride 5 mg 06/21/18 10:00 06/23/18 09:00 Proscar - PO 5 mg DAILY [facility] Administration Hydrochlorothiazide 25 mg 06/21/18 10:00 06/23/18 08:59 Hctz - PO 25 mg DAILY [facility] Administration Azithromycin 500 mg in 250 mls @ 250 mls/hr 06/21/18 09:00 06/23/18 08:22 Zithromax 500mg Ivpb (Pre-Docked) IVPB 250 mls/hr DAILY@0900 [facility] Administration Ceftriaxone Sodium 1 gm/ 50 mls @ 100 mls/hr 06/21/18 09:00 06/23/18 08:22 Dextrose IVPB 100 mls/hr DAILY@0900 [facility] Administration Insulin Aspart 1 vial 06/22/18 16:30 06/23/18 11:06 Novolog Vial Sliding Scale - SQ 12 units TIDAC [facility] Administration Protocol Insulin Detemir 10 units 06/23/18 22:00 Levemir Vial SQ 0700,2200 [facility] Lisinopril 20 mg 06/21/18 10:00 06/23/18 08:59 Prinivil PO 20 mg DAILY [facility] Administration Melatonin 5 mg 06/23/18 11:16 Melatonin PO HS PRN INSOMNIA Non-Formulary Medication 23 mg 06/20/18 22:00 Donepezil Hcl [Donepezil Hcl] PO HS [facility] Pantoprazole Sodium 40 mg 06/21/18 10:00 06/23/18 08:59 Protonix - PO 40 mg DAILY [facility] Administration Prednisone 30 mg 06/22/18 16:00 06/23/18 09:00 Deltasone - PO 30 mg DAILY [facility] Administration Pregabalin 75 mg 06/20/18 22:00 06/23/18 08:59 Lyrica - PO 75 mg BID [facility] Administration Trazodone HCl 50 mg 06/21/18 22:00 06/22/18 21:34 Desyrel - PO 50 mg HS [facility] Administration Laboratory Results - last 24 hr 06/22/18 06/22/18 06/22/18 13:00 16:10 21:42 WBC RBC Hgb Hct MCV MCH MCHC RDW Plt Count MPV Absolute Neuts (auto) Neutrophils % Lymphocytes % Monocytes % Eosinophils % Basophils % Nucleated RBC % Sodium Potassium Chloride Carbon Dioxide Anion Gap BUN Creatinine Creat Clearance w eGFR POC Glucometer 569 489 444 Random Glucose Calcium Total Bilirubin AST ALT Alkaline Phosphatase Total Protein Albumin 06/23/18 06/23/18 06/23/18 06:08 06:30 06:30 WBC 10.4 H RBC 4.00 Hgb 12.9 Hct 35.9 MCV 89.8 MCH 32.2 MCHC 35.9 RDW 12.4 Plt Count 185 D MPV 9.7 Absolute Neuts (auto) 9.2 H Neutrophils % 88.3 H Lymphocytes % 5.7 L D Monocytes % 5.9 D Eosinophils % 0.0 Basophils % 0.1 Nucleated RBC % 0 Sodium 136 Potassium 3.6 Chloride 103 Carbon Dioxide 26 Anion Gap 7 L BUN 31 H Creatinine 0.9 Creat Clearance w eGFR 81.61 POC Glucometer 355 Random Glucose 305 H* Calcium 9.2 Total Bilirubin 0.3 AST 25 ALT 11 L Alkaline Phosphatase 62 Total Protein 6.5 Albumin 3.2 L 06/23/18 11:05 WBC RBC Hgb Hct MCV MCH MCHC RDW Plt Count MPV Absolute Neuts (auto) Neutrophils % Lymphocytes % Monocytes % Eosinophils % Basophils % Nucleated RBC % Sodium Potassium Chloride Carbon Dioxide Anion Gap BUN Creatinine Creat Clearance w eGFR POC Glucometer 410 Random Glucose Calcium Total Bilirubin AST ALT Alkaline Phosphatase Total Protein Albumin No pallor labored breathing cough+ S1 S2 RRR Lungs ronchi + decreased Abd- soft, NT no edema PLAN Continue with iv antibiotics,Nebs, O2 pt needs home O2 I convinced him to stay till Monday-- pt is still tachypneic, low O2 sat -- does not appear to be a safe discharge today elevated sugars--increase Levemir Pulmonary eval noted -- tapering steroids Neurology eval for Parkinsons, Dementia noted CT chest noted-- spoke with -- will need to repeat in 3 weeks after antibiotics completed Problem List - Problems (1) Parkinsons disease Code(s): G20 - PARKINSON'S DISEASE (2) Anxiety Code(s): F41.9 - ANXIETY DISORDER, UNSPECIFIED (3) Hypoxia Code(s): R09.02 - HYPOXEMIA (4) Pneumonia Code(s): J18.9 - PNEUMONIA, UNSPECIFIED ORGANISM
--- NOTE | 2018-06-23 11:14 | PN ---
Progress Note (short form) - Note Progress Note: Reports feeling better. Still has some congested cough. No hemoptysis. Insomnia overnight. Intake & Output 06/20/18 06/21/18 06/22/18 06/23/18 23:59 23:59 23:59 23:59 Intake Total 450 1250 750 200 Output Total 1950 2100 Balance -1500 -850 750 200 Weight 157 lb Last Vital Signs Temp Pulse Resp BP Pulse Ox 98.0 F 62 20 145/70 93 L 06/23/18 09:59 06/23/18 09:59 06/23/18 09:59 06/23/18 09:59 06/23/18 09:00 Active Medications Albuterol Sulfate (Ventolin 0.083% Nebulizer Soln -) 1 amp NEB Q4H PRN PRN Reason: SHORT OF BREATH/WHEEZING Albuterol/Ipratropium (Duoneb -) 1 amp NEB RQID [facility] Last Admin: 06/23/18 08:31 Dose: 1 amp Alprazolam (Xanax -) 1 mg PO Q8H PRN PRN Reason: ANXIETY Last Admin: 06/22/18 21:34 Dose: 1 mg Amlodipine Besylate (Norvasc -) 5 mg PO DAILY [facility] Last Admin: 06/23/18 09:00 Dose: 5 mg Atorvastatin Calcium (Lipitor -) 10 mg PO HS [facility] Last Admin: 06/22/18 21:35 Dose: 10 mg Carbidopa/Levodopa (Sinemet 25/100 -) 1 each PO TID [facility] Last Admin: 06/23/18 06:06 Dose: 1 each Enoxaparin Sodium (Lovenox -) 40 mg SQ DAILY [facility] Last Admin: 06/23/18 08:59 Dose: 40 mg Escitalopram Oxalate (Lexapro -) 10 mg PO DAILY [facility] Last Admin: 06/23/18 08:59 Dose: 10 mg Finasteride (Proscar -) 5 mg PO DAILY [facility] Last Admin: 06/23/18 09:00 Dose: 5 mg Hydrochlorothiazide (Hctz -) 25 mg PO DAILY [facility] Last Admin: 06/23/18 08:59 Dose: 25 mg Azithromycin (Zithromax 500mg Ivpb (Pre-Docked)) 500 mg in 250 mls @ 250 mls/ hr IVPB DAILY@0900 [facility] Last Admin: 06/23/18 08:22 Dose: 250 mls/hr Ceftriaxone Sodium 1 gm/ (Dextrose) 50 mls @ 100 mls/hr IVPB DAILY@0900 [facility] Last Admin: 06/23/18 08:22 Dose: 100 mls/hr Insulin Aspart (Novolog Vial Sliding Scale -) 1 vial SQ TIDAC [facility]; Protocol Last Admin: 06/23/18 11:06 Dose: 12 units Insulin Detemir (Levemir Vial) 10 units SQ 0700,2200 [facility] Lisinopril (Prinivil) 20 mg PO DAILY [facility] Last Admin: 06/23/18 08:59 Dose: 20 mg Non-Formulary Medication (Donepezil Hcl [Donepezil Hcl]) 23 mg PO [facility] Pantoprazole Sodium (Protonix -) 40 mg PO DAILY [facility] Last Admin: 06/23/18 08:59 Dose: 40 mg Prednisone (Deltasone -) 30 mg PO DAILY [facility] Last Admin: 06/23/18 09:00 Dose: 30 mg Pregabalin (Lyrica -) 75 mg PO BID [facility] Last Admin: 06/23/18 08:59 Dose: 75 mg Trazodone HCl (Desyrel -) 50 mg PO [facility] Last Admin: 06/22/18 21:34 Dose: 50 mg Gen: Awake and alert Heart: RRR Lung: Coarse breath sounds and rhonchi, Right > Left Abd: soft, nontender Ext: no edema Laboratory Results - last 24 hr 06/22/18 06/22/18 06/22/18 13:00 16:10 21:42 WBC RBC Hgb Hct MCV MCH MCHC RDW Plt Count MPV Absolute Neuts (auto) Neutrophils % Lymphocytes % Monocytes % Eosinophils % Basophils % Nucleated RBC % Sodium Potassium Chloride Carbon Dioxide Anion Gap BUN Creatinine Creat Clearance w eGFR POC Glucometer 569 489 444 Random Glucose Calcium Total Bilirubin AST ALT Alkaline Phosphatase Total Protein Albumin 06/23/18 06/23/18 06/23/18 06:08 06:30 06:30 WBC 10.4 H RBC 4.00 Hgb 12.9 Hct 35.9 MCV 89.8 MCH 32.2 MCHC 35.9 RDW 12.4 Plt Count 185 D MPV 9.7 Absolute Neuts (auto) 9.2 H Neutrophils % 88.3 H Lymphocytes % 5.7 L D Monocytes % 5.9 D Eosinophils % 0.0 Basophils % 0.1 Nucleated RBC % 0 Sodium 136 Potassium 3.6 Chloride 103 Carbon Dioxide 26 Anion Gap 7 L BUN 31 H Creatinine 0.9 Creat Clearance w eGFR 81.61 POC Glucometer 355 Random Glucose 305 H* Calcium 9.2 Total Bilirubin 0.3 AST 25 ALT 11 L Alkaline Phosphatase 62 Total Protein 6.5 Albumin 3.2 L 06/23/18 11:05 WBC RBC Hgb Hct MCV MCH MCHC RDW Plt Count MPV Absolute Neuts (auto) Neutrophils % Lymphocytes % Monocytes % Eosinophils % Basophils % Nucleated RBC % Sodium Potassium Chloride Carbon Dioxide Anion Gap BUN Creatinine Creat Clearance w eGFR POC Glucometer 410 Random Glucose Calcium Total Bilirubin AST ALT Alkaline Phosphatase Total Protein Albumin A/P Pneumonia Acute COPD Exacerbation Parkinsons HTN Anxiety - Decrease prednisone to 20mg daily - inhaled bronchodilators - antibiotics - O2 to keep Spo2 >90% - outpt PFTs - will need outpt f/u of chest imaging - Will need pre and post ambulation check of saturation prior to D/C home Dr Conway
[2018-06-23] MEDS: ALPRAZolam 0.25 MG TABLET PO PRN ×2 (14:20→22:37)
[2018-06-23] MEDS ORDERED: PT OWN MED DRAWER 7, Y5N ONE (19:52)
[2018-06-23] MEDS: MELATONIN 5 MG TABLETS PO PRN (22:37)
[2018-06-23] MEDS: ATORVASTATIN CA 10 MG TABLET (FP) PO SCH (22:38)
[2018-06-23] MEDS: INSULIN (LEVEMIR) 100 UNITS/ML UNITS SQ SCH (22:38)
[2018-06-23] MEDS: traZODone HCL 50 MG TABLET (FP) PO SCH (22:38)
[2018-06-24] MEDS: CARBIDOPA/LEVODOPA 25/100 TABLET (FP) PO SCH ×3 (05:45→21:22)
[2018-06-24] MEDS: INSULIN SLIDING SCALE (NOVOLOG) 1 VIAL SQ SCH ×3 (06:23→16:16)
[2018-06-24] MEDS: INSULIN (LEVEMIR) 100 UNITS/ML UNITS SQ SCH ×2 (06:23→21:21)
[2018-06-24] MEDS: ALBUTEROL SO4 2.5/IPRATROPIUM 0.5 INH SOL 3 ML VIAL.NEB. NEB SCH ×4 (08:05→20:08)
[2018-06-24] MEDS ORDERED: cefTRIAXone SODIUM 1 GM VIAL ONE (08:14)
[2018-06-24] MEDS ORDERED: DEXTROSE 5%-WATER - 50 ML IVPB ONE (08:14)
[2018-06-24] MEDS: CEFTRIAXONE 1 GM in DEXTROSE 5%-WATER - 50 ML IVPB SCH (08:23)
[2018-06-24] MEDS: AZITHROMYCIN IVPB 500 MG/250 ML BAG IVPB SCH (08:24)
[2018-06-24] MEDS: PANTOPRAZOLE 40 MG TABLET (FP) PO SCH (09:00)
[2018-06-24] MEDS: FINASTERIDE 5 MG TABLET (FP) PO SCH (09:00)
[2018-06-24] MEDS: ESCITALOPRAM OXALATE 10 MG TABLET (FP) PO SCH (09:00)
[2018-06-24] MEDS: predniSONE 10 MG TABLET (UD) PO SCH (09:00)
[2018-06-24] MEDS: LISINOPRIL 20 MG TABLET (FP) PO SCH (09:00)
[2018-06-24] MEDS: HYDROCHLOROTHIAZIDE 25 MG TABLET (FP) PO SCH (09:01)
[2018-06-24] MEDS: amLODIPine BESYLATE 5 MG TABLET (FP) PO SCH (09:01)
[2018-06-24] MEDS: PREGABALIN 75 MG CAPSULE PO SCH ×2 (09:01→21:21)
[2018-06-24] MEDS: ENOXAPARIN NA (PORCINE) 40 MG/0.4 ML DISP.SYRIN SQ SCH (09:01)
--- NOTE | 2018-06-24 10:22 | PN ---
Progress Note (short form) - Note Progress Note: Pt is on 2 L NC-- O2 sat 95% feeling better per pt wants to go home less confusion per staff Vital Signs - 24 hr Vital Signs - 24 hr 06/23/18 06/23/18 06/24/18 21:00 21:14 02:00 Temperature 98.2 F 97.7 F Pulse Rate 71 59 L Respiratory 18 18 20 Rate Blood Pressure 140/63 144/65 O2 Sat by Pulse 93 L Oximetry (%) 06/24/18 06/24/18 06/24/18 06:06 09:00 10:00 Temperature 97.6 F 97.6 F Pulse Rate 56 L 53 L Respiratory 20 20 Rate Blood Pressure 144/64 147/67 O2 Sat by Pulse 95 Oximetry (%) 06/24/18 15:03 Temperature 98.5 F Pulse Rate 69 Respiratory 20 Rate Blood Pressure 127/59 L O2 Sat by Pulse Oximetry (%) Current Medications Generic Name Dose Route Start Last Admin Trade Name Freq PRN Reason Stop Dose Admin Albuterol Sulfate 1 amp 06/20/18 16:05 Ventolin 0.083% Nebulizer Soln - NEB Q4H PRN SHORT OF BREATH/WHEEZING Albuterol/Ipratropium 1 amp 06/20/18 20:00 06/24/18 16:26 Duoneb - NEB 1 amp RQID [facility] Administration Alprazolam 1 mg 06/20/18 13:50 06/24/18 13:22 Xanax - PO 1 mg Q8H PRN Administration ANXIETY Amlodipine Besylate 5 mg 06/21/18 10:00 06/24/18 09:01 Norvasc - PO 5 mg DAILY [facility] Administration Atorvastatin Calcium 10 mg 06/20/18 22:00 06/23/18 22:38 Lipitor - PO 10 mg HS [facility] Administration Carbidopa/Levodopa 1 each 06/20/18 14:00 06/24/18 13:22 Sinemet 25/100 - PO 1 each TID [facility] Administration Enoxaparin Sodium 40 mg 06/21/18 10:00 06/24/18 09:01 Lovenox - SQ 40 mg DAILY [facility] Administration Escitalopram Oxalate 10 mg 06/21/18 10:00 06/24/18 09:00 Lexapro - PO 10 mg DAILY [facility] Administration Finasteride 5 mg 06/21/18 10:00 06/24/18 09:00 Proscar - PO 5 mg DAILY [facility] Administration Hydrochlorothiazide 25 mg 06/21/18 10:00 06/24/18 09:01 Hctz - PO 25 mg DAILY [facility] Administration Azithromycin 500 mg in 250 mls @ 250 mls/hr 06/21/18 09:00 06/24/18 08:24 Zithromax 500mg Ivpb (Pre-Docked) IVPB 250 mls/hr DAILY@0900 [facility] Administration Ceftriaxone Sodium 1 gm/ 50 mls @ 100 mls/hr 06/21/18 09:00 06/24/18 08:23 Dextrose IVPB 100 mls/hr DAILY@0900 [facility] Administration Insulin Aspart 1 vial 06/22/18 16:30 06/24/18 16:16 Novolog Vial Sliding Scale - SQ 8 units TIDAC [facility] Administration Protocol Insulin Detemir 10 units 06/23/18 22:00 06/24/18 06:23 Levemir Vial SQ 10 units 0700,2200 [facility] Administration Lisinopril 20 mg 06/21/18 10:00 06/24/18 09:00 Prinivil PO 20 mg DAILY [facility] Administration Melatonin 5 mg 06/23/18 11:16 06/23/18 22:37 Melatonin PO 5 mg HS PRN Administration INSOMNIA Non-Formulary Medication 23 mg 06/20/18 22:00 Donepezil Hcl [Donepezil Hcl] PO HS [facility] Pantoprazole Sodium 40 mg 06/21/18 10:00 06/24/18 09:00 Protonix - PO 40 mg DAILY [facility] Administration Prednisone 30 mg 06/22/18 16:00 06/24/18 09:00 Deltasone - PO 30 mg DAILY [facility] Administration Pregabalin 75 mg 06/20/18 22:00 06/24/18 09:01 Lyrica - PO 75 mg BID [facility] Administration Trazodone HCl 50 mg 06/21/18 22:00 06/23/18 22:38 Desyrel - PO 50 mg HS [facility] Administration Laboratory Results - last 24 hr 06/23/18 06/24/18 06/24/18 21:03 05:39 10:53 POC Glucometer 381 289 343 06/24/18 16:14 POC Glucometer 355 No pallor labored breathing cough+ S1 S2 RRR Lungs ronchi + decreased Abd- soft, NT no edema PLAN Continue with iv antibiotics,Nebs, O2 tapering steroids continue with meds Neurology eval for Parkinsons, Dementia noted CT chest noted-- spoke with -- will need to repeat in 3 weeks after antibiotics completed Problem List - Problems (1) Parkinsons disease Code(s): G20 - PARKINSON'S DISEASE (2) Anxiety Code(s): F41.9 - ANXIETY DISORDER, UNSPECIFIED (3) Hypoxia Code(s): R09.02 - HYPOXEMIA (4) Pneumonia Code(s): J18.9 - PNEUMONIA, UNSPECIFIED ORGANISM
--- NOTE | 2018-06-24 11:18 | PN ---
Progress Note (short form) - Note Progress Note: Reports feeling overall better. Still has some congested cough. No hemoptysis. Intake & Output 06/21/18 06/22/18 06/23/18 06/24/18 23:59 23:59 23:59 23:59 Intake Total 1250 750 800 30 Output Total 2100 300 500 Balance -850 750 500 -470 Last Vital Signs Temp Pulse Resp BP Pulse Ox 97.6 F 53 L 20 147/67 95 06/24/18 10:00 06/24/18 10:00 06/24/18 10:00 06/24/18 10:00 06/24/18 09:00 Active Medications Albuterol Sulfate (Ventolin 0.083% Nebulizer Soln -) 1 amp NEB Q4H PRN PRN Reason: SHORT OF BREATH/WHEEZING Albuterol/Ipratropium (Duoneb -) 1 amp NEB RQID [facility] Last Admin: 06/24/18 08:05 Dose: 1 amp Alprazolam (Xanax -) 1 mg PO Q8H PRN PRN Reason: ANXIETY Last Admin: 06/23/18 22:37 Dose: 1 mg Amlodipine Besylate (Norvasc -) 5 mg PO DAILY [facility] Last Admin: 06/24/18 09:01 Dose: 5 mg Atorvastatin Calcium (Lipitor -) 10 mg PO HS [facility] Last Admin: 06/23/18 22:38 Dose: 10 mg Carbidopa/Levodopa (Sinemet 25/100 -) 1 each PO TID [facility] Last Admin: 06/24/18 05:45 Dose: 1 each Enoxaparin Sodium (Lovenox -) 40 mg SQ DAILY [facility] Last Admin: 06/24/18 09:01 Dose: 40 mg Escitalopram Oxalate (Lexapro -) 10 mg PO DAILY [facility] Last Admin: 06/24/18 09:00 Dose: 10 mg Finasteride (Proscar -) 5 mg PO DAILY [facility] Last Admin: 06/24/18 09:00 Dose: 5 mg Hydrochlorothiazide (Hctz -) 25 mg PO DAILY [facility] Last Admin: 06/24/18 09:01 Dose: 25 mg Azithromycin (Zithromax 500mg Ivpb (Pre-Docked)) 500 mg in 250 mls @ 250 mls/ hr IVPB DAILY@0900 [facility] Last Admin: 06/24/18 08:24 Dose: 250 mls/hr Ceftriaxone Sodium 1 gm/ (Dextrose) 50 mls @ 100 mls/hr IVPB DAILY@0900 [facility] Last Admin: 06/24/18 08:23 Dose: 100 mls/hr Insulin Aspart (Novolog Vial Sliding Scale -) 1 vial SQ TIDAC [facility]; Protocol Last Admin: 06/24/18 10:54 Dose: 8 units Insulin Detemir (Levemir Vial) 10 units SQ 0700,2200 [facility] Last Admin: 06/24/18 06:23 Dose: 10 units Lisinopril (Prinivil) 20 mg PO DAILY [facility] Last Admin: 06/24/18 09:00 Dose: 20 mg Melatonin (Melatonin) 5 mg PO HS PRN PRN Reason: INSOMNIA Last Admin: 06/23/18 22:37 Dose: 5 mg Non-Formulary Medication (Donepezil Hcl [Donepezil Hcl]) 23 mg PO HS [facility] Pantoprazole Sodium (Protonix -) 40 mg PO DAILY [facility] Last Admin: 06/24/18 09:00 Dose: 40 mg Prednisone (Deltasone -) 30 mg PO DAILY [facility] Last Admin: 06/24/18 09:00 Dose: 30 mg Pregabalin (Lyrica -) 75 mg PO BID [facility] Last Admin: 06/24/18 09:01 Dose: 75 mg Trazodone HCl (Desyrel -) 50 mg PO HS [facility] Last Admin: 06/23/18 22:38 Dose: 50 mg Gen: Awake and alert Heart: RRR Lung: Coarse breath sounds and rhonchi, Right > Left Abd: soft, nontender Ext: no edema Laboratory Results - last 24 hr 06/23/18 06/23/18 06/24/18 16:24 21:03 05:39 POC Glucometer 386 381 289 06/24/18 10:53 POC Glucometer 343 A/P Pneumonia Acute COPD Exacerbation Parkinsons HTN Anxiety - Prednisone to 20mg daily - inhaled bronchodilators - antibiotics - O2 to keep Spo2 >90% - outpt PFTs - will need outpt f/u of chest imaging - Will need to check pre and post ambulation check of saturation prior to D/C home Dr Conway
[2018-06-24] MEDS: ALPRAZolam 0.25 MG TABLET PO PRN ×2 (13:22→21:22)
[2018-06-24] MEDS: traZODone HCL 50 MG TABLET (FP) PO SCH (21:21)
[2018-06-24] MEDS: ATORVASTATIN CA 10 MG TABLET (FP) PO SCH (21:21)
[2018-06-24] MEDS: MELATONIN 5 MG TABLETS PO PRN (21:22)
[2018-06-25] MEDS ORDERED: ACETAMINOPHEN 325 MG TABLET (FP) PO ONE
[2018-06-25] MEDS: INSULIN (LEVEMIR) 100 UNITS/ML UNITS SQ SCH ×2 (06:08→22:19)
[2018-06-25] MEDS: CARBIDOPA/LEVODOPA 25/100 TABLET (FP) PO SCH ×3 (06:08→22:19)
[2018-06-25] MEDS: INSULIN SLIDING SCALE (NOVOLOG) 1 VIAL SQ SCH ×3 (06:08→16:14)
[2018-06-25 07:04] LABS: BASO % 0.1 % (0-2.0); EOS % 0.9 % (0-4.5); HEMATOCRIT 35.8 % (35.4-49); HEMOGLOBIN 12.9 GM/dL (11.7-16.9); MCH 31.9 pg (25.7-33.7); MEAN CELL VOLUME 88.8 fl (80-96); MEAN PLT VOLUME 9.3 fl (7.5-11.1); MONO % 7.7 % (3.8-10.2); NEUT % 76.3 % (42.8-82.8); PLATELET COUNT 181 K/MM3 (134-434); RBC 4.03 M/mm3 (4.00-5.60); RDW 12.3 % (11.9-15.9); WHITE BLOOD COUNT 8.6 K/mm3 (4.0-10.0)
[2018-06-25 07:25] LABS: ALK PHOS 62 U/L (45-117); ANION GAP 6 MMOL/L (8-16); BILIRUBIN,TOTAL 0.7 mg/dL (0.2-1); BLOOD UREA NITROGEN 26 mg/dL (7-18); CHLORIDE 102 mmol/L (98-107); CO2 30 mmol/L (21-32); GLUCOSE,RANDOM 231 mg/dL (74-106); POTASSIUM 3.7 mmol/L (3.5-5.1); SGOT/AST 29 U/L (15-37); SGPT/ALT 14 U/L (13-61); SODIUM 137 mmol/L (136-145); TOT PROT 5.9 g/dl (6.4-8.2)
[2018-06-25] MEDS ORDERED: cefTRIAXone SODIUM 1 GM VIAL ONE (08:02)
[2018-06-25] MEDS ORDERED: DEXTROSE 5%-WATER - 50 ML IVPB ONE (08:02)
[2018-06-25] MEDS: ALBUTEROL SO4 2.5/IPRATROPIUM 0.5 INH SOL 3 ML VIAL.NEB. NEB SCH ×4 (08:08→20:54)
[2018-06-25] MEDS: CEFTRIAXONE 1 GM in DEXTROSE 5%-WATER - 50 ML IVPB SCH (08:12)
[2018-06-25] MEDS: AZITHROMYCIN IVPB 500 MG/250 ML BAG IVPB SCH (08:12)
[2018-06-25] MEDS: PREGABALIN 75 MG CAPSULE PO SCH ×2 (09:02→22:20)
[2018-06-25] MEDS: PANTOPRAZOLE 40 MG TABLET (FP) PO SCH (09:02)
[2018-06-25] MEDS: LISINOPRIL 20 MG TABLET (FP) PO SCH (09:02)
[2018-06-25] MEDS: HYDROCHLOROTHIAZIDE 25 MG TABLET (FP) PO SCH (09:02)
[2018-06-25] MEDS: predniSONE 10 MG TABLET (UD) PO SCH (09:02)
[2018-06-25] MEDS: ENOXAPARIN NA (PORCINE) 40 MG/0.4 ML DISP.SYRIN SQ SCH (09:02)
[2018-06-25] MEDS: amLODIPine BESYLATE 5 MG TABLET (FP) PO SCH (09:03)
[2018-06-25] MEDS: ESCITALOPRAM OXALATE 10 MG TABLET (FP) PO SCH (09:03)
[2018-06-25] MEDS: FINASTERIDE 5 MG TABLET (FP) PO SCH (09:03)
--- NOTE | 2018-06-25 10:17 | PN ---
Progress Note (short form) - Note Progress Note: pt seen/ examined chart reviewed feels better still sob denies cp cough + afebrile Vital Signs Temp 97.7 F 06/25/18 05:47 Pulse 56 L 06/25/18 05:47 Resp 20 06/25/18 05:47 BP 133/82 06/25/18 05:47 Pulse Ox 95 06/24/18 21:00 Intake & Output 06/24/18 06/24/18 06/25/18 11:59 23:59 11:59 Intake Total 30 1030 550 Output Total 500 Balance -470 1030 550 Intake: IVPB 350 Oral 30 680 550 Output: Urine 500 Void 500 Other: Voiding Method Toilet Toilet Toilet # Unmeasured Voids Void 1 1 Bowel Movement No No # Bowel Movements 1 Active Medications Albuterol Sulfate (Ventolin 0.083% Nebulizer Soln -) 1 amp NEB Q4H PRN PRN Reason: SHORT OF BREATH/WHEEZING Albuterol/Ipratropium (Duoneb -) 1 amp NEB RQID [facility] Last Admin: 06/25/18 08:08 Dose: 1 amp Alprazolam (Xanax -) 1 mg PO Q8H PRN PRN Reason: ANXIETY Last Admin: 06/24/18 21:22 Dose: 1 mg Amlodipine Besylate (Norvasc -) 5 mg PO DAILY [facility] Last Admin: 06/25/18 09:03 Dose: 5 mg Atorvastatin Calcium (Lipitor -) 10 mg PO HS [facility] Last Admin: 06/24/18 21:21 Dose: 10 mg Carbidopa/Levodopa (Sinemet 25/100 -) 1 each PO TID [facility] Last Admin: 06/25/18 06:08 Dose: 1 each Enoxaparin Sodium (Lovenox -) 40 mg SQ DAILY [facility] Last Admin: 06/25/18 09:02 Dose: 40 mg Escitalopram Oxalate (Lexapro -) 10 mg PO DAILY [facility] Last Admin: 06/25/18 09:03 Dose: 10 mg Finasteride (Proscar -) 5 mg PO DAILY [facility] Last Admin: 06/25/18 09:03 Dose: 5 mg Hydrochlorothiazide (Hctz -) 25 mg PO DAILY [facility] Last Admin: 06/25/18 09:02 Dose: 25 mg Azithromycin (Zithromax 500mg Ivpb (Pre-Docked)) 500 mg in 250 mls @ 250 mls/ hr IVPB DAILY@0900 [facility] Last Admin: 06/25/18 08:12 Dose: 250 mls/hr Ceftriaxone Sodium 1 gm/ (Dextrose) 50 mls @ 100 mls/hr IVPB DAILY@0900 [facility] Last Admin: 06/25/18 08:12 Dose: 100 mls/hr Insulin Aspart (Novolog Vial Sliding Scale -) 1 vial SQ TIDAC [facility]; Protocol Last Admin: 06/25/18 06:08 Dose: 6 units Insulin Detemir (Levemir Vial) 10 units SQ 0700,2200 [facility] Last Admin: 06/25/18 06:08 Dose: 10 units Lisinopril (Prinivil) 20 mg PO DAILY [facility] Last Admin: 06/25/18 09:02 Dose: 20 mg Melatonin (Melatonin) 5 mg PO HS PRN PRN Reason: INSOMNIA Last Admin: 06/24/18 21:22 Dose: 5 mg Non-Formulary Medication (Donepezil Hcl [Donepezil Hcl]) 23 mg PO [facility] Pantoprazole Sodium (Protonix -) 40 mg PO DAILY [facility] Last Admin: 06/25/18 09:02 Dose: 40 mg Prednisone (Deltasone -) 30 mg PO DAILY [facility] Last Admin: 06/25/18 09:02 Dose: 30 mg Pregabalin (Lyrica -) 75 mg PO BID [facility] Last Admin: 06/25/18 09:02 Dose: 75 mg Trazodone HCl (Desyrel -) 50 mg PO HS [facility] Last Admin: 06/24/18 21:21 Dose: 50 mg CBC, BMP 06/25/18 06:00 06/25/18 06:00 Microbiology 06/20/18 10:15 Blood Culture - Preliminary Blood - Peripheral Venous NO GROWTH OBTAINED AFTER 96 HOURS, INCUBATION TO CONTINUE FOR 1 DAYS. 06/20/18 10:15 Blood Culture - Preliminary Blood - Peripheral Venous NO GROWTH OBTAINED AFTER 96 HOURS, INCUBATION TO CONTINUE FOR 1 DAYS. Physical Exam awake/ comfortable. No distress cough+ S1 S2 RRR Lungs ronchi + Bilateral Abd- soft, NT no edema PLAN Better Slowly improving Continue with iv antibiotics, Nebs, O2 tapering steroids continue with meds CT chest -- repeat in 3 weeks after antibiotics completed pre-post oxygen oob- chair if better - anticipate d/c in 1-2 days will follow Problem List - Problems (1) Parkinsons disease Code(s): G20 - PARKINSON'S DISEASE (2) Anxiety Code(s): F41.9 - ANXIETY DISORDER, UNSPECIFIED (3) Hypoxia Code(s): R09.02 - HYPOXEMIA (4) Pneumonia Code(s): J18.9 - PNEUMONIA, UNSPECIFIED ORGANISM
[2018-06-25 12:35] LABS: ANISOCYTOSIS 0; MACROCYTOSIS 0; PLATELET ESTIMATE NORMAL
[2018-06-25] MEDS: ALPRAZolam 0.25 MG TABLET PO PRN ×2 (13:10→22:19)
[2018-06-25] MEDS ORDERED: PT OWN MED DRAWER 7, Y5N ONE (13:22)
--- NOTE | 2018-06-25 16:07 | PN ---
Progress Note (short form) - Note Progress Note: PULMONARY Denies shortness of breath, cough or wheezing. Vital Signs Period Temp Pulse Resp BP Sys/Bryant Pulse Ox Last 24 Hr 97.3 F-97.9 F 56-77 20-20 113-137/54-82 95-95 Gen: NAD at rest Heart: RRR Lung: distant breath sounds Abd: soft, nontender Ext: no edema CBC, BMP 06/25/18 06:00 06/25/18 06:00 Active Medications Albuterol Sulfate (Ventolin 0.083% Nebulizer Soln -) 1 amp NEB Q4H PRN PRN Reason: SHORT OF BREATH/WHEEZING Albuterol/Ipratropium (Duoneb -) 1 amp NEB RQID [facility] Last Admin: 06/25/18 11:46 Dose: 1 amp Alprazolam (Xanax -) 1 mg PO Q8H PRN PRN Reason: ANXIETY Last Admin: 06/25/18 13:10 Dose: 1 mg Amlodipine Besylate (Norvasc -) 5 mg PO DAILY [facility] Last Admin: 06/25/18 09:03 Dose: 5 mg Atorvastatin Calcium (Lipitor -) 10 mg PO HS [facility] Last Admin: 06/24/18 21:21 Dose: 10 mg Carbidopa/Levodopa (Sinemet 25/100 -) 1 each PO TID [facility] Last Admin: 06/25/18 13:10 Dose: 1 each Enoxaparin Sodium (Lovenox -) 40 mg SQ DAILY [facility] Last Admin: 06/25/18 09:02 Dose: 40 mg Escitalopram Oxalate (Lexapro -) 10 mg PO DAILY [facility] Last Admin: 06/25/18 09:03 Dose: 10 mg Finasteride (Proscar -) 5 mg PO DAILY [facility] Last Admin: 06/25/18 09:03 Dose: 5 mg Hydrochlorothiazide (Hctz -) 25 mg PO DAILY [facility] Last Admin: 06/25/18 09:02 Dose: 25 mg Azithromycin (Zithromax 500mg Ivpb (Pre-Docked)) 500 mg in 250 mls @ 250 mls/ hr IVPB DAILY@0900 [facility] Last Admin: 06/25/18 08:12 Dose: 250 mls/hr Ceftriaxone Sodium 1 gm/ (Dextrose) 50 mls @ 100 mls/hr IVPB DAILY@0900 [facility] Last Admin: 06/25/18 08:12 Dose: 100 mls/hr Insulin Aspart (Novolog Vial Sliding Scale -) 1 vial SQ TIDAC [facility]; Protocol Last Admin: 06/25/18 11:14 Dose: 4 units Insulin Detemir (Levemir Vial) 10 units SQ 0700,2200 [facility] Last Admin: 06/25/18 06:08 Dose: 10 units Lisinopril (Prinivil) 20 mg PO DAILY [facility] Last Admin: 06/25/18 09:02 Dose: 20 mg Melatonin (Melatonin) 5 mg PO HS PRN PRN Reason: INSOMNIA Last Admin: 06/24/18 21:22 Dose: 5 mg Non-Formulary Medication (Donepezil Hcl [Donepezil Hcl]) 23 mg PO [facility] Pantoprazole Sodium (Protonix -) 40 mg PO DAILY [facility] Last Admin: 06/25/18 09:02 Dose: 40 mg Prednisone (Deltasone -) 30 mg PO DAILY [facility] Last Admin: 06/25/18 09:02 Dose: 30 mg Pregabalin (Lyrica -) 75 mg PO BID [facility] Last Admin: 06/25/18 09:02 Dose: 75 mg Trazodone HCl (Desyrel -) 50 mg PO HS [facility] Last Admin: 06/24/18 21:21 Dose: 50 mg A/P Pneumonia r/o Acute COPD Exacerbation Parkinsons HTN Anxiety - prednisone taper - inhaled bronchodilators - complete antibiotics - O2 to keep Spo2 >90% - check ambulatory SpO2 on room air to assess for home O2 - outpt PFTs - will need outpt f/u of chest imaging
[2018-06-25] MEDS: traZODone HCL 50 MG TABLET (FP) PO SCH (22:19)
[2018-06-25] MEDS: MELATONIN 5 MG TABLETS PO PRN (22:19)
[2018-06-25] MEDS: ATORVASTATIN CA 10 MG TABLET (FP) PO SCH (22:20)
[2018-06-26] MEDS: CARBIDOPA/LEVODOPA 25/100 TABLET (FP) PO SCH ×2 (05:31→17:48)
[2018-06-26] MEDS: INSULIN (LEVEMIR) 100 UNITS/ML UNITS SQ SCH (06:18)
[2018-06-26] MEDS: INSULIN SLIDING SCALE (NOVOLOG) 1 VIAL SQ SCH ×3 (06:19→17:48)
[2018-06-26] MEDS: ALBUTEROL SO4 2.5/IPRATROPIUM 0.5 INH SOL 3 ML VIAL.NEB. NEB SCH ×3 (08:37→16:00)
[2018-06-26] MEDS ORDERED: DEXTROSE 5%-WATER - 50 ML IVPB ONE (09:35)
[2018-06-26] MEDS ORDERED: cefTRIAXone SODIUM 1 GM VIAL ONE (09:35)
[2018-06-26] MEDS: AZITHROMYCIN IVPB 500 MG/250 ML BAG IVPB SCH (09:43)
[2018-06-26] MEDS: CEFTRIAXONE 1 GM in DEXTROSE 5%-WATER - 50 ML IVPB SCH (09:44)
[2018-06-26] MEDS: LISINOPRIL 20 MG TABLET (FP) PO SCH (09:46)
[2018-06-26] MEDS: amLODIPine BESYLATE 5 MG TABLET (FP) PO SCH (09:46)
[2018-06-26] MEDS: FINASTERIDE 5 MG TABLET (FP) PO SCH (09:46)
[2018-06-26] MEDS: HYDROCHLOROTHIAZIDE 25 MG TABLET (FP) PO SCH (09:46)
[2018-06-26] MEDS: ESCITALOPRAM OXALATE 10 MG TABLET (FP) PO SCH (09:46)
[2018-06-26] MEDS: PANTOPRAZOLE 40 MG TABLET (FP) PO SCH (09:46)
[2018-06-26] MEDS: predniSONE 10 MG TABLET (UD) PO SCH (09:46)
[2018-06-26] MEDS: ENOXAPARIN NA (PORCINE) 40 MG/0.4 ML DISP.SYRIN SQ SCH ×2 (09:52→10:04)
[2018-06-26] MEDS: PREGABALIN 75 MG CAPSULE PO SCH (09:52)
--- NOTE | 2018-06-26 13:18 | DS ---
Physical Examination Vital Signs: Vital Signs Temperature 98.8 F 06/26/18 05:57 Pulse Rate 87 06/26/18 09:01 Respiratory Rate 20 06/26/18 05:57 Blood Pressure 118/59 L 06/26/18 05:57 O2 Sat by Pulse Oximetry (%) 93 L 06/26/18 09:01 Constitutional: Yes: No Distress, Calm Cardiovascular: Yes: Regular Rate and Rhythm Respiratory: Yes: Diminished, Rhonchi Gastrointestinal: Yes: Normal Bowel Sounds, Soft. No: Tenderness Edema: No Labs: CBC, BMP 06/25/18 06:00 06/25/18 06:00 Discharge Summary Reason For Visit: HYPOXIA, PNEUMONIA Current Active Problems Anxiety (Acute) Hypoxia (Acute) Parkinsons disease (Acute) Pneumonia (Acute) SOB (shortness of breath) (Acute) Hospital Course: Admitted for pneumonia, acute hypoxia CT chest-- mass like density in right lobe, focal ground glass appearance , bibasilar atelectasis vs infiltrates Evaluated by pulmonary was on iv antibiotics and solumedrol Urine antigens negative for Legionella Examined by Neurology as he appeared more confused-- confusion due to uncontrolled sugars due to steroids and also due to pneumonia pt clinically improved stable for dc home on PO medrol, antibiotics, home O2 Condition: Improved - Instructions Diet, Activity, Other Instructions: needs repeat CT chest in 1 month follow up with PMD in 2 weeks Disposition: HOME - Home Medications Comprehensive Discharge Medication List: Ambulatory Orders Albuterol Sulfate [Albuterol Sulfate Hfa] 18 gm IH Q6H #7 [id number].[email or web address] 06/20/18 Alprazolam 1 mg PO TID 06/20/18 Amlodipine Besylate 5 mg PO DAILY 06/20/18 Amoxicillin - [Amoxicillin 500mg Capsule -] 500 mg PO TID 06/20/18 Atorvastatin Ca [Lipitor] 10 mg PO HS 06/20/18 Azithromycin [Zithromax Tri-Ike (3 DAYS) -] 500 mg PO DAILY #3 tablet 06/20/18 Carbidopa/Levodopa [Carbidopa-Levodopa 25-100 Tab] 1 each PO TID 06/20/18 Cefuroxime Axetil [Ceftin -] 500 mg PO Q12H #20 tablet 06/20/18 Donepezil HCl 23 mg PO HS 06/20/18 Escitalopram Oxalate [Lexapro -] 10 mg PO DAILY 06/20/18 Finasteride 5 mg PO DAILY 06/20/18 Lisinopril/Hydrochlorothiazide [Lisinopril-Hctz 20-25 mg Tab] 1 each PO DAILY Pantoprazole Sodium [Protonix] 40 mg PO DAILY 06/20/18 Pregabalin [Lyrica -] 75 mg PO BID 06/20/18 traZODone HCL [Trazodone HCl] 50 mg PO DAILY 06/20/18 predniSONE [Deltasone -] See Taper PO DAILY #20 tablet 06/26/18
[2018-06-26 14:38] VITALS: BP 141/71; PULSE 69; TEMP 98.6
== END 2018-06-26 19:19 | disposition home or self-care (01) | DRG 194 ==
LOC: JER 09:08 → JERBED 11:28 → J7W 13:29
PROVIDERS: ADMIT Internal Medicine; ATTEND Internal Medicine
DX: J18.9 Pneumonia, unspecified organism (principal); J44.1 Chronic obstructive pulmonary disease with (acute) exacerbation; J98.11 Atelectasis; F03.90 Unspecified dementia, unspecified severity, without behavioral disturbance, psychotic disturbance, mood disturbance, and anxiety; N40.0 Benign prostatic hyperplasia without lower urinary tract symptoms; K21.9 Gastro-esophageal reflux disease without esophagitis; E11.40 Type 2 diabetes mellitus with diabetic neuropathy, unspecified; F41.8 Other specified anxiety disorders; I10 Essential (primary) hypertension; G20 Parkinson's disease; E66.9 Obesity, unspecified; Z68.26 Body mass index [BMI] 26.0-26.9, adult; R09.02 Hypoxemia; Z87.891 Personal history of nicotine dependence
CPT/HCPCS: 36415; 36600; 71045-TC-FY; 71250-TC; 80048; 80053; 82550; 82803; 82962; 83036; 83605; 83880; 84484; 85025; 87040; 87899; 93005; 93010; 94640; 94761; 99285-25

== ENCOUNTER 2019-11-14 05:12 | Day surgery (SDC) | payer BC, OTHER ==
[2019-11-13 15:05] VITALS: BMI 22.7
[~2019-11-14 05:12] MED LIST: BSS (NA/CA/MG/K) BALANCED SALT SOLUTION OPHTH SOLN 15 ML BOTTLE OS ONE; CHONDROITIN SU A/HYALUR SOD 1 KIT IO ONE; EPINEPHrine/PF 1 MG/1 ML (1:1,000) AMPULE SQ ONE; LIDOCAINE HCL 1% PRESERVATIVE FREE - 30ML VIAL IO ONE; POVIDONE-IODINE 5% OPHTHALMIC PREP 30 ML SOLUTION OS ONE; TETRACAINE 0.5% OPHTH SOLN 2 ML BOTTLE OS ONE; TOBRAMYCIN/DEXAMETHASONE OPHTH. OINTMENT 1 TUBE OS ONE
[2019-11-14] MEDS ORDERED: TOBRAMYCIN/DEXAMETHASONE OPHTH. OINTMENT 1 TUBE ONE (06:39)
[2019-11-14] MEDS ORDERED: LIDOCAINE HCL/PF 1% SDV 5ML VIAL ONE (06:39)
[2019-11-14] MEDS ORDERED: EPINEPHrine/PF 1 MG/1 ML (1:1,000) AMPULE ONE ×2 (06:39→07:47)
[2019-11-14] MEDS ORDERED: TETRACAINE 0.5% OPHTH SOLN 2 ML BOTTLE ONE (06:40)
[2019-11-14] MEDS ORDERED: TRYPAN BLUE 0.5 ML DISP.SYRIN ONE (06:40)
[2019-11-14] MEDS ORDERED: POVIDONE-IODINE 5% OPHTHALMIC PREP 30 ML SOLUTION ONE (06:40)
[2019-11-14] MEDS ORDERED: CHONDROITIN SU A/HYALUR SOD 1 KIT ONE (06:44)
[2019-11-14] MEDS: CIPROFLOXACIN HCL 0.3% OPHTH 2.5ML BOTTLE ONE ×3 (06:50→07:20)
[2019-11-14] MEDS: PHENYLEPHRINE 2.5% OPHTH SOLN 15 ML BOTTLE OS ONE ×3 (06:50→07:21)
[2019-11-14] MEDS: DICLOFENAC SODIUM 0.1% OPHTHALMIC 2.5ML BOTTLE ONE ×3 (06:50→07:21)
[2019-11-14] MEDS: TROPICAMIDE 1% OPHTH SOLN 15 ML BOTTLE ONE ×3 (06:50→07:21)
[2019-11-14] MEDS ORDERED: ACETAMINOPHEN 325 MG TABLET (FP) PO PRN (07:19)
[2019-11-14] MEDS ORDERED: MIDAZOLAM HCL 2 MG/2 ML SINGLE DOSE VIAL ONE (07:20)
--- NOTE | 2019-11-14 07:21 | HP ---
History & Physical Update - History History: No Change - Physical Physical: No Change - Assessment Assessment: No Change - Plan Plan: No Change (Dr. Crystal's H and P reviewed from 11/06/2019 no changes)
--- NOTE | 2019-11-14 07:25 | HP ---
- Patient Scheduled date of Surgery: 11/14/19 Scheduled Surgical Procedure: Phacoemulsification and cataract extraction with PCIOL Affected Eye: Left Chief Complaint (Indication for surgery): Decreased vision affecting ADLs - Ocular History Other Eye History: Other (none) Eye Medications: vigamox Previous Eye Surgery: none - Medical History Illnesses: COPD (lung CA, parkinsnon's, dementia), Hypertension, Diabetes Current Medications: Ambulatory Orders Alprazolam 1 mg PO TID PRN 06/20/18 Amlodipine Besylate 5 mg PO DAILY 06/20/18 Atorvastatin Ca [Lipitor] 10 mg PO HS 06/20/18 Carbidopa/Levodopa [Carbidopa-Levodopa 25-100 Tab] 1 each PO TID 06/20/18 Donepezil HCl 23 mg PO HS 06/20/18 Escitalopram Oxalate [Lexapro -] 10 mg PO DAILY 06/20/18 Finasteride 5 mg PO DAILY 06/20/18 Lisinopril/Hydrochlorothiazide [Lisinopril-Hctz 20-25 mg Tab] 1 each PO DAILY 06/20/18 Pantoprazole Sodium [Protonix] 40 mg PO DAILY 06/20/18 Pregabalin [Lyrica -] 75 mg PO BID 06/20/18 traZODone HCL [Trazodone HCl] 50 mg PO DAILY 06/20/18 Albuterol Sulfate [Albuterol Sulfate Hfa] 18 gm IH PRN 11/13/19 Ascorbic Acid [Vitamin C -] 1,000 mg PO DAILY 11/13/19 Magnesium Amino Acid Chelate [Magnesium] 50 mg PO DAILY 11/13/19 Vitamin E Acetate [Vitamin E] 1,000 unit PO DAILY 11/13/19 Allergies/Adverse Reactions: Allergies Allergy/AdvReac Type Severity Reaction Status Date / Time No Known Allergies Allergy Unverified 11/14/19 06:33 Ocular Examination - Best Corrected Visual Acuity Distance: Right eye: 20/30- Distance: Left eye: 20/80 - External/Slit Lamp Examination Abnormalities: 2+ papilla , blepharitis - Intraocular Pressure Intraocular Pressure - Right eye: 14 Intraocular Pressure-Left eye: 16 - Lens Lens: 3+ NS 2+ cortical - Vitreous/Retina Vitreous/Retina: C:D 0.15 m/v/p wnl - Special Examination M - Right eye: +1.25-0.25 x 125 M - Left eye: +0.50-0.75 x 105 K - Right eye: 42.75/43.75 x83 K - Left eye: 42.83/42.83 AL - Right eye: 23.86 AL - Left eye: 24.03 IOL bag: +20.5 Au[place]o IOL sulcus: +19.5 [id number] IOL AC: +17.5 MTA 4UO - Impression Impression: Cataract Left Eye (blockl) - Plan Plan: Phacoemulsification and cataract extraction - IOL Left eye Post-hospital care will be provided in office on: 11/15/19
[2019-11-14] MEDS ORDERED: PHENYLEPHRINE 2.5% OPHTH SOLN 15 ML BOTTLE OP SCH (07:30)
[2019-11-14] MEDS ORDERED: TROPICAMIDE 1% OPHTH SOLN 15 ML BOTTLE OP SCH (07:30)
[2019-11-14] MEDS ORDERED: KETOROLAC TROMETHAMINE 0.5% EYE DROP 1 DROP DROPS OP SCH (07:30)
[2019-11-14] MEDS ORDERED: CIPROFLOXACIN HCL 0.3% OPHTH 2.5ML BOTTLE OP SCH (07:30)
[2019-11-14] MEDS ORDERED: BUPIVACAINE HCL/PF 0.75% 10 ML VIAL ONE (07:36)
[2019-11-14] MEDS ORDERED: KETAMINE HCL 200 MG/20 ML VIAL ONE (07:37)
[2019-11-14] MEDS ORDERED: LIDOCAINE HCL/PF 2% SDV 5ML VIAL ONE (07:37)
[2019-11-14] MEDS ORDERED: PROPOFOL 20 ML ONE (07:37)
[2019-11-14] MEDS ORDERED: BUPIVACAINE HCL/PF 0.75% 10 ML VIAL PNB ONE (07:52)
[2019-11-14] MEDS ORDERED: LIDOCAINE HCL/PF 2% SDV 5ML VIAL PNB ONE (07:52)
[2019-11-14] MEDS ORDERED: POVIDONE-IODINE 5% OPHTHALMIC PREP 30 ML SOLUTION OS ONE (07:55)
[2019-11-14] MEDS ORDERED: CHONDROITIN SU A/HYALUR SOD 1 KIT IO ONE (08:03)
[2019-11-14] MEDS ORDERED: BSS (NA/CA/MG/K) BALANCED SALT SOLUTION OPHTH SOLN 15 ML BOTTLE OS ONE (08:03)
[2019-11-14] MEDS ORDERED: EPINEPHrine/PF 1 MG/1 ML (1:1,000) AMPULE SQ ONE (08:11)
[2019-11-14] MEDS ORDERED: TOBRAMYCIN/DEXAMETHASONE OPHTH. OINTMENT 1 TUBE OS ONE (08:29)
--- NOTE | 2019-11-14 08:39 | OP ---
Ophthalmology Operative Note Pre-Operative Diagnosis: Cataract Affected Eye: Left Operation: Phacoemulsification and cataract extraction with PCIOL Findings: Ns Cataract left eye Post-Operative Diagnosis: Same as Pre-op [place] Picker: None Anesthesiologist: Leonel Martin Anesthesia: Retrobulbar Specimens Removed: none Estimated blood loss: < 1 cc Drains & Tubes with Location: none Operative Report Dictated: Yes
[2019-11-14 08:49] VITALS: TEMP 97.5
--- NOTE | 2019-11-14 09:03 | OP ---
DATE OF OPERATION: DATE OF DICTATION: 11/14/2019 PREOPERATIVE DIAGNOSIS: Nuclear sclerotic cataract, left eye. POSTOPERATIVE DIAGNOSIS: Nuclear sclerotic cataract, left eye. PROCEDURE: Phacoemulsification and cataract extraction with insertion of posterior chamber intraocular lens, left eye. SURGEON: Angela Downey MD COAL CHEMIST: None. ANESTHESIA: Retrobulbar block. OPERATIVE PROCEDURE: Following satisfactory intravenous sedation, the patient received local anesthesia using a 50:50 mixture of lidocaine 2% and Marcaine 0.75%. A Van Lint lid block was delivered to the left eye using 4 mL of the mixture and a retrobulbar injection using 4 mL of the mixture. The patient was then prepped and draped in the usual sterile fashion so as to expose only the left eye. Ophthalmic Betadine was instilled into the inferior fornix. The lashes were taped out of the surgical field. An eyelid speculum was placed into the left eye. Paracentesis was made in inferior temporal clear cornea at the limbus. Then 0.5 mL of nonpreserved lidocaine 1% was injected into the anterior chamber and then 1 mL of dilute epinephrine 1:10,000 was injected into the anterior chamber to improve pupillary dilation. Viscoelastic material was instilled into the anterior chamber via the paracentesis. A 2.4-mm keratome blade was then used to create the main incision in temporal clear cornea at the limbus. A continuous curvilinear capsulorrhexis was performed using a cystotome and Utrata forceps. Hydrodissection of the lens cortex was performed using BSS on a cannula until the nucleus was noted to be freely rotating. The phacoemulsification tip was then inserted via the main wound and used to scope 2 perpendicular grooves into the lens nucleus. The nucleus was cracked into 4 quadrants. Each quadrant was lifted out of the capsule into the iris plane and individually phacoemulsified. The remaining cortical material was then aspirated using the irrigation/aspiration port. The capsular bag was inflated using ProVisc and a preloaded AcrySof lens model [id number] power+20.5 diopters was injected into the capsular bag. It was centered using a Sinskey hook. The residual viscoelastic material was removed from the anterior chamber using irrigation and aspiration. The wound edges were hydrated using BSS. The wound was tested for leakage and was found to be watertight. Tobradex ointment was placed in the eye, and the speculum was removed from the eye, and the eyelid was closed. A sterile dressing and shield were placed over the eye. The patient was transferred to the recovery room in stable condition, told to follow up in 1 day. ANGELA DOWNEY M.D. [id number]
[2019-11-14 09:53] VITALS: BP 105/49; PULSE 60
[2019-11-14] MEDS ORDERED: LACTATED RINGERS SOLUTION 1,000 ML IV SCH (11:45)
[2019-11-14] MEDS ORDERED: ONDANSETRON 4 MG/2 ML VIAL IVPUSH PRN (11:45)
== END 2019-11-14 10:25 | disposition home or self-care (01) ==
LOC: JASU-SURG 05:12
PROVIDERS: ATTEND Ophthalmology
PROC: 08RK3JZ Replacement of Left Lens with Synthetic Substitute, Percutaneous Approach (ICD-10-PCS; principal; 2019-11-14 07:30)
DX: H25.12 Age-related nuclear cataract, left eye (principal)

== ENCOUNTER 2019-11-21 04:37 | Day surgery (SDC) | payer BC, OTHER ==
[2019-11-20 08:29] VITALS: BMI 23.0
[~2019-11-21 04:37] MED LIST changes: -BSS (NA/CA/MG/K) BALANCED SALT SOLUTION OPHTH SOLN 15 ML BOTTLE OS ONE; -CHONDROITIN SU A/HYALUR SOD 1 KIT IO ONE; -LIDOCAINE HCL 1% PRESERVATIVE FREE - 30ML VIAL IO ONE; -POVIDONE-IODINE 5% OPHTHALMIC PREP 30 ML SOLUTION OS ONE; -TETRACAINE 0.5% OPHTH SOLN 2 ML BOTTLE OS ONE; +TOBRAMYCIN/DEXAMETHASONE OPHTH. OINTMENT 1 TUBE OD ONE; -TOBRAMYCIN/DEXAMETHASONE OPHTH. OINTMENT 1 TUBE OS ONE
--- OUTSIDE RECORDS SUMMARY | 2019-11-21 04:42 | XMS ---
:1940 [facility] Providers Name Role Phone Christopher Han MD Unavailable Unavailable Gretchen Becker MD Unavailable Unavailable Marc Figueroa Unavailable Unavailable Hayden Unavailable Unavailable Black, Unavailable Unavailable Edwige, DO Unavailable Unavailable Anita Darling MD Unavailable Unavailable Anita Darling MD Unavailable Unavailable Re-disclosure Warning The records that you are about to access may contain information from federally- assisted alcohol or drug abuse programs. If such information is present, then the following federally mandated warning applies: This information has been disclosed to you from records protected by federal confidentiality rules (42 CFR part 2). The federal rules prohibit you from making any further disclosure of this information unless further disclosure is expressly permitted by the written consent of the person to whom it pertains or as otherwise permitted by 42 CFR part 2. A general authorization for the release of medical or other information is NOT sufficient for this purpose. The Federal rules restrict any use of the information to criminally investigate or prosecute any alcohol or drug abuse patient.The records that you are about to access may contain highly sensitive health information, the redisclosure of which is protected by Article 27-F of the [facility] Public Health law. If you continue you may haveaccess to information: Regarding HIV / AIDS; Provided by facilities licensed or operated by the [facility] Office of Mental Health; or Provided by the [facility] Office for People With Developmental Disabilities. If such information is present, then the following [facility] mandated warning applies: This information has been disclosed to you from confidential records which are protected by state law. State law prohibits you from making any further disclosure of this information without the specific written consent of the person to whom it pertains, or as otherwise permitted by law. Any unauthorized further disclosure in violation of state law may result in a fine or group home sentence or both. A general authorization for the release of medical or other information is NOT sufficient authorization for further disclosure. Allergies and Adverse Reactions Type Description Substance Reaction Status Data Source(s ) Drug allergy No Known Allergies No Known NO KNOWN ALLERG [place] [facility] [place] [facility] Encounters Encounter Providers Location Date Indications Data Source(s ) P Attender: Christopher 10/25/2018 [facility] MDReferrer: Marc Figueroa RADIATION Admission cancelled. Disregard status an d admitted date. P Attender: Christopher 10/25/2018 09:59:00 PHYS ACCO UNT VAIN [facility] MDReferrer: AM EDT Ulises Figueroa PHYS ACCOUNT VAIN Admission cancelled. Disregard status an d admitted date. P Attender: Marc 10/22/2018 07:30:00 [facility] Dar[facility] MD LUNG CANCER Admission cancelled. Disregard status an d admitted date. Outpatient Attender: Marc 10/03/2018 01:19:00 LUNG CANCER [facility] EDT [facility] LUNG CANCER Outpatient Attender: Christopher 09/28/2018 04:42:00 PM CONSUL T [facility] MDReferrer: EDT Ulises Figueroa CONSULT Outpatient Attender: Louis 08/28/2018 01:00:00 CT RLL MASS BX [facility] EDT [facility] CT RLL MASS BX Emergency Attender: Pawel 02/24/2018 02:18:00 ABD/LEG PA IN - [place] Gibbons DO PM EST - 02/24/2018 [place] [facility] 07:52:00 PM EST ABD[place] Inpatient Attender: Gretchen Becker 02/20/2018 04:11:00 AM PAIN [facility] MDAdmitter: William EST - 02/20/2018 [place] JONSE 12:35:00 PM EST PAIN Medications Medication Brand Start Product Dose Route Administrative Pharm[facility] Indications Reaction Description Data Name Date Form Instructions Instructions Source(s) Hydromorpho Hydrom 02/24/ TABLET complet Ever y 4 White [facility] 2017 ed Hours as [place] Hydrochlori e Hcl 12:00: needed for Hospital de 2 MG ([place] 00 AM Severe Pain Oral Tablet did EST (Pain Scale [Dilaudid] 2MG 8-10) Hydromorpho Tab*) ne Hcl 2 Mg (Dilaudid Tablet 2MG Tab*) 2 Mg Tablet Lidocaine Lidoca 02/24/ PATCH 1 complet Daily [place] Hydrochlori ine 2018 {Patc ed [place] de 0.05 (Lidod 12:00: h} Hospital MG/MG erm 5% 00 AM Transdermal Patch* EST Patch ) 5 % [Lidoderm] Adh..p Lidocaine atch (Lidoderm 5% Patch*) 5 % Adh..patch Hydromorpho Hydrom 02/20/ TABLET 2 mg complet Ever y 6 White [facility] 2017 ed Hours as [place] Hydrochlori e Hcl 12:00: needed for Hospital de 2 MG ([place] 00 AM Severe Pain Oral Tablet did EST (Pain Scale [Dilaudid] 2MG 8-10) Hydromorpho Tab*) ne Hcl 2 Mg (Dilaudid Tablet 2MG Tab*) 2 , 2 Mg Mg Tablet, Oral 2 Mg Oral Hydromorpho Hydrom 02/20/ TABLET 2 mg complet Ever y 6 White [facility] 2018 ed Hours as [place] Hydrochlori e Hcl 12:00: needed for Hospital de 2 MG ([place] 00 AM Severe Pain Oral Tablet did EST (Pain Scale [Dilaudid] 2MG 8-10) Hydromorpho Tab*) ne Hcl 2 Mg (Dilaudid Tablet 2MG Tab*) 2 Mg Tablet pregabalin Pregab 02/20/ CAPSULE 1 complet Twic e A Day [facility] 75 MG Oral renzo 2017 {Caps ed [facility] Capsule (Echo 12:00: ule} Hospital [Lyrica] a 75MG 00 AM Pregabalin Cap*) EST (Lyrica 75 Mg 75MG Cap*) Capsul 75 Mg e Capsule Acetaminoph 02/20/ TABLET 1000 complet Three Times White en (Tylenol 2018 mg ed A Day [facility] Extra 12:00: Hospital Strength*) 00 AM 500 Mg EST Tablet Acetaminoph 02/20/ TABLET 1000 complet Three Times White en (Tylenol 2018 mg ed A Day [facility] Extra 12:00: Hospital Strength*) 00 AM 500 Mg EST Tablet pregabalin Pregab 02/20/ CAPSULE 1 complet Twic e A Day [facility] 75 MG Oral renzo 2018 {Caps ed [place] Capsule (Echo 12:00: ule} Hospital [Lyrica] a 75MG 00 AM Pregabalin Cap*) EST (Lyrica 75 Mg 75MG Cap*) Capsul 75 Mg e Capsule [place]-3 [place]- CAPSULE 1 g complet Twice A D ay White Acid Ethyl 3-Acid ed [facility] ([facility]IOR [facility]) 1000 Esters MG Oral (Lovaz Capsule a 1 [Lovaza] Gram [place]-3-Aci Cap*) d Ethyl 1 Gram Esters Capsul (Lovaza 1 e Gram Cap*) 1 Gram Capsule Donepezil Donepe TABLET 23 mg complet At Bedt jacob [facility] hydrochlori zil ed [facility] de 10 MG Hcl Hospital Oral Tablet (Arice [Aricept] pt*) Donepezil 10 Mg Hcl Tab, (Aricept*) 23 Mg 10 Mg Tab, Oral 23 Mg Oral 24 HR Sitagl 1 complet Daily White Metformin iptin {Each ed [facility] hydrochlori Phos/M } Hospit al de 1000 MG etform / in Hcl sitagliptin (Janum 50 MG et Xr Extended 50-1,0 Release 00 Mg Oral Tablet Tablet [Janumet] ) 50 Sitagliptin Mg-1,0 Phos/Metfor 00 Mg min Hcl Tbmp.2 (Janumet Xr 4hr 50-1,000 Mg Tablet) 50 Mg-1,000 Mg Tbmp.24hr Zolpidem Zolpid TABLET 10 mg complet Every Ni ght White tartrate 10 em ed At Bedtime Pl ains MG Oral [facility] Tablet te 10 Zolpidem Mg Tartrate 10 Tablet Mg Tablet Zolpidem Zolpid TABLET 10 mg complet At Bedti me White tartrate 10 em ed [place] MG Oral [facility] Tablet te [Ambien] (Ambie Zolpidem n*) 10 Tartrate Mg (Ambien*) Tablet 10 Mg , 10 Tablet, 10 Mg Mg Oral Oral 24 HR Metopr TABLET 50 mg complet Daily White metoprolol olol 24 HR ed [place] succinate Succin SUSTAINE Hosp ital 50 MG ate 50 D Extended Mg RELEASE Release Tab.sr Oral Tablet .24h, [Toprol] 50 Mg Metoprolol Oral Succinate 50 Mg Tab.sr.24h, 50 Mg Oral [place]-3 [place]- CAPSULE 1 g complet Twice A D ay White Acid Ethyl 3-Acid ed [facility] ([facility]IOR [facility]) 1000 Esters MG Oral (Lovaz Capsule a 1 [Lovaza] Gram [place]-3-Aci Cap*) d Ethyl 1 Gram Esters Capsul (Lovaza 1 e Gram Cap*) 1 Gram Capsule atorvastati Atorva TABLET 10 mg complet Daily White n 10 MG statin ed [facility] Oral Tablet [facility] Atorvastati m 10 n Calcium Mg 10 Mg Tablet Tablet glimepiride Glimep TABLET 4 mg complet Daily White 4 MG Oral iride ed [place] Tablet ([facility] Glimepiride l*) 4 (Amaryl*) 4 Mg Tab Mg Tab Donepezil Donepe TABLET 23 mg complet At Bedt jacob [facility] hydrochlori zil ed [place] de 10 MG Hcl Hospital Oral Tablet (Arice [Aricept] pt*) Donepezil 10 Mg Hcl Tab, (Aricept*) 23 Mg 10 Mg Tab, Oral 23 Mg Oral pantoprazol Pantop TABLET, 40 mg complet Harlan y White e 40 MG razole DELAYED ed [place] Delayed Sodium RELEASE Hospita l Release 40 Mg Oral Tablet Tablet Pantoprazol .dr james Sodium 40 Mg Tablet. Escitaloprkellee Escita TABLET 10 mg complet Daily White m 10 MG lopram ed [place] Oral Tablet Oxalat Hospit al [Lexapro] e Escitalopra (Lexap m Oxalate ro*) (Lexapro*) 10 Mg 10 Mg Tab, Tab, 10 Mg Oral 10 Mg Oral Hydrochloro Hctz/L TABLET 1 complet Daily White thiazide 25 isinop {Caps ed Plain s MG / ril ule} Hospital Lisinopril (Zesto 20 MG Oral retic Tablet 20-25 Hctz/Lisino Mg pril Tablet (Zestoretic *) 20 20-25 Mg Mg-25 Tablet*) 20 Mg Mg-25 Mg Tablet Tablet pregabalin Pregab CAPSULE 1 complet Daily White 75 MG Oral renzo {Caps ed [place] Capsule (Echo ule} [facility] [Lyrica] a 75MG Pregabalin Cap*) (Lyrica 75 Mg 75MG Cap*) Capsul 75 Mg e, 1 Capsule, 1 Tab Tab Oral Oral Hydrochloro Hctz/L TABLET 1 complet Daily White thiazide 25 isinop {Caps ed [facility] MG / ril ule} Hospital Lisinopril (Zesto 20 MG Oral retic Tablet 20-25 Hctz/Lisino Mg pril Tablet (Zestoretic *) 20 20-25 Mg Mg-25 Tablet*) 20 Mg Mg-25 Mg Tablet Tablet pregabalin Pregab CAPSULE 100 complet Three Times White 100 MG Oral renzo mg ed A Day [place] Capsule ([facility] [[facility]] a Pregabalin [facility] ([facility]*) 100MG Cap*) 100 Mg 100 Mg Capsul Capsule, e, 100 100 Mg Oral Mg Oral Finasteride Finast TABLET 5 mg complet Daily White 5 MG Oral eride ed [place] Tablet ([facility] Finasteride ar*) 5 (Proscar*) Mg Tab 5 Mg Tab atorvastati Atorva TABLET 10 mg complet Daily White n 10 MG statin ed [place] Oral Tablet [facility] Atorvastati m 10 n Calcium Mg 10 Mg Tablet Tablet Carbidopa Carbid TABLET 1 complet Daily Wh ite 25 MG / opa/Le {[facility] ed [place] Levodopa vodopa ule} [facility] 100 MG Oral (Lisette Tablet et Carbidopa/L 25/100 evodopa *) 25 (Sinemet Mg-100 25/100*) 25 Mg Mg-100 Mg Tablet Tablet Hydroxyzine Hydrox TABLET 1 complet As Nee ded White Hydrochlori yzine {[facility] ed for Pruritu s [place] de 50 MG Hcl ule} Hospital Oral Tablet (Magails Hydroxyzine x*) 50 Hcl Mg (Atarax*) Tablet 50 Mg Tablet glimepiride Glimep TABLET 4 mg complet Daily White 4 MG Oral iride ed [place] Tablet ([facility] Glimepiride l*) 4 (Amaryl*) 4 Mg Tab Mg Tab Escitalopra Escita TABLET 1 complet Daily White m 10 MG lopram {[facility] ed [place] Oral Tablet Oxalat ule} Hospit al Escitalopra e 10 m Oxalate Mg 10 Mg Tablet Tablet 24 HR Metopr TABLET, 1 complet Daily White metoprolol olol EXTENDED {[facility] ed Plai ns succinate Succin RELEASE ule} Hospi luli 50 MG ate 50 Extended Mg Release Tab.er Oral Tablet .24h Metoprolol Succinate 50 Mg Tab.er.24h pantoprazol Pantop TABLET, 40 mg complet Harlan y White e 40 MG razole DELAYED ed [place] Delayed Sodium RELEASE Hospita l Release 40 Mg Oral Tablet Tablet Pantoprazol .dr james Sodium 40 Mg Tablet.dr Veraitalopra Escita TABLET 1 complet Daily White m 10 MG lopram {Caps ed [place] Oral Tablet Oxalat ule} Hospit al Escitalopra e 10 m Oxalate Mg 10 Mg Tablet Tablet Acetaminoph Acetam TABLET 1 complet Every 4 White en 300 MG / inophe {Caps ed Hours as P lains Codeine n-Code ule} needed for Hosp ital Phosphate ine #3 For Pain 30 MG Oral Tablet Post Tablet * Anesthesia Acetaminoph (Tylen en-Codeine ol-Cod #3 Tablet* eine (Tylenol-Co #3 deine #3 Tablet Tablet*) *) 300 300 Mg-30 Mg-30 Mg Tablet, Mg 1 Tab Oral Tablet , 1 Tab Oral Zolpidem Zolpid TABLET 10 mg complet Every Ni ght White tartrate 10 em ed At Bedtime Pl ains MG Oral [facility] Tablet te 10 Zolpidem Mg Tartrate 10 Tablet Mg Tablet Pramipexole Pramip TABLET 1 complet Daily White dihydrochlo exole {Caps ed [place] ride 0.25 Di-Hcl ule} Hospital MG Oral (Prami Tablet pexole Pramipexole Dihydr Di-Hcl ochlor (Pramipexol juan m) e 0.25 Dihydrochlo Mg ride) 0.25 Tablet Mg Tablet Hydroxyzine Hydrox TABLET 1 complet As Nee ded White Hydrochlori yzine {Caps ed for Pruritu s [place] de 50 MG Hcl ule} Hospital Oral Tablet (Magalis Hydroxyzine x*) 50 Hcl Mg (Atarax*) Tablet 50 Mg Tablet Pramipexole Pramip TABLET 1 complet Daily White dihydrochlo exole {Caps ed [place] ride 0.25 Di-Hcl ule} Hospital MG Oral (Prami Tablet pexole Pramipexole Dihydr Di-Hcl ochlor (Pramipexol juan m) e 0.25 Dihydrochlo Mg ride) 0.25 Tablet Mg Tablet 24 HR Sitagl 1 complet Daily White Metformin iptin {Each ed [facility] hydrochlori Phos/M } Hospit al de 1000 MG etform / in Hcl sitagliptin (Janum 50 MG et Xr Extended 50-1,0 Release 00 Mg Oral Tablet Tablet [Janumet] ) 50 Sitagliptin Mg-1,0 Phos/Metfor 00 Mg min Hcl Tbmp.2 (Janumet Xr 4hr 50-1,000 Mg Tablet) 50 Mg-1,000 Mg Tbmp.24hr Alprazolam Alpraz TABLET 1 mg complet Three T imes [facility] 1 MG Oral olam ed A Day [place] Tablet ([facility] Alprazolam *) 1 (Xanax*) 1 Mg Tab Mg Tab Alprazolam Alpraz TABLET 1 mg complet Three T imes White 1 MG Oral olam ed A Day [place] Tablet ([facility] Alprazolam *) 1 (Xanax*) 1 Mg Tab Mg Tab pregabalin Pregab CAPSULE 1 complet Daily White 75 MG Oral renzo {[facility] ed [place] Capsule (Echo ule} [facility] [Lyrica] a 75MG Pregabalin Cap*) (Lyrica 75 Mg 75MG Cap*) Capsul 75 Mg e, 1 Capsule, 1 Tab Tab Oral Oral 24 HR Metopr TABLET 50 mg complet Daily White metoprolol olol 24 HR ed [place] succinate Succin SUSTAINE Hosp ital 50 MG ate 50 D Extended Mg RELEASE Release Tab.sr Oral Tablet .24h, [Toprol] 50 Mg Metoprolol Oral Succinate 50 Mg Tab.sr.24h, 50 Mg Oral Acetaminoph Acetam TABLET 1 complet Every 4 White en 300 MG / inophe {[facility] ed Hours as P lains Codeine n-Code ule} needed for Hosp ital Phosphate ine #3 For Pain 30 MG Oral Tablet Post Tablet * Anesthesia Acetaminoph (Tylen en-Codeine ol-Cod #3 Tablet* eine (Tylenol-Co #3 deine #3 Tablet Tablet*) *) 300 300 Mg-30 Mg-30 Mg Tablet, Mg 1 Tab Oral Tablet , 1 Tab Oral Carbidopa Carbid TABLET 1 complet Daily Wh ite 25 MG / opa/Le {Caps ed [place] Levodopa vodopa ule} [facility] 100 MG Oral (Lisette Tablet et Carbidopa/L 25/100 evodopa *) 25 (Sinemet Mg-100 25/100*) 25 Mg Mg-100 Mg Tablet Tablet Donepezil Donepe TABLET 23 mg complet Daily W rat[place] hydrochlori zil ed [facility] de 23 MG Hcl 23 Hospital Oral Tablet Mg Donepezil Tablet Hcl 23 Mg Tablet 24 HR Metopr TABLET, 1 complet Daily White metoprolol olol EXTENDED {Caps ed Plai ns succinate Succin RELEASE ule} Hospi luli 50 MG ate 50 Extended Mg Release Tab.er Oral Tablet .24h Metoprolol Succinate 50 Mg Tab.er.24h Escitalopra Escita TABLET 10 mg complet Daily White m 10 MG lopram ed [facility] Oral Tablet Oxalat Hospit al [Lexapro] e Escitalopra (Lexap m Oxalate ro*) (Lexapro*) 10 Mg 10 Mg Tab, Tab, 10 Mg Oral 10 Mg Oral Donepezil Donepe TABLET 23 mg complet Daily [place] hydrochlori zil ed [facility] de 23 MG Hcl 23 Hospital Oral Tablet Mg Donepezil Tablet Hcl 23 Mg Tablet Finasteride Finast TABLET 5 mg complet Daily [facility] 5 MG Oral eride ed [place] Tablet ([facility] Finasteride ar*) 5 (Proscar*) Mg Tab 5 Mg Tab Zolpidem Zolpid TABLET 10 mg complet At Bedti me White tartrate 10 em ed [place] MG Oral [facility] Tablet te [Ambien] (Ambie Zolpidem n*) 10 Tartrate Mg (Ambien*) Tablet 10 Mg , 10 Tablet, 10 Mg Mg Oral Oral No known complet [facility] medications ed [facility] . Hospital pregabalin Pregab CAPSULE 100 complet Three Times [facility] 100 MG Oral renzo mg ed A Day [place] Capsule ([facility] [Lyrica] a Pregabalin 100MG (Lyrica Cap*) 100MG Cap*) 100 Mg 100 Mg Capsul Capsule, e, 100 100 Mg Oral Mg Oral Insurance Providers Payer name Policy type Policy ID Covered Covered libertarian's Policy P yordan / Coverage libertarian ID relationship to Gutierrez Inf ormation type gutierrez MEDICARE [id number] SP [id number] BC PPO [id number] [place] [id number] BC PPO [id number] PR [id number] MEDICARE [id number] SP [id number] MEDICARE [id number] PT [id number] BLUE CROSS PPO [id number] SP [id number] BLUE CROSS IND [id number] SP [id number] [id number] [place]LL [id number] SP [id number] HEALTHCARE PPO MEDICARE PART [id number] PT [id number] ONLY BLUE CROSS PPO [id number] SP [id number] [id number] BLUE CROSS PPO [id number] SP [id number] MEDICARE [id number] PT [id number] [place]PO [id number] [place] [id number] BC PPO [id number] PR [id number] Problems, Conditions, and Diagnoses Code Display Name Description Problem Type Effective Dates Data Source(s) C34.31 Malignant neoplasm of C34.31 Diagnosis 10/25/2018 [facility] [place] lower lobe, right 07:39:00 AM EDT Ho spital bronchus or lung C34.90 Malignant neoplasm of C34.90 Diagnosis 10/03/2018 [facility] [place] unspecified part of 01:19:00 PM EDT Hospital unspecified bronchus or lung Z01.812 Encounter for Z01.812 Diagnosis 10/03/2018 [place] preprocedural 01:19:00 PM EDT Hospit al laboratory examination Y84.8 Other medical Y84.8 Diagnosis 08/28/2018 [place] procedures as the 11:09:00 AM EDT Ho spital cause of abnormal reaction of the patient, or of later complication, without mention of misadventure at the time of the procedure J98.11 Atelectasis J98.11 Diagnosis 08/28/2018 [place] 11:09:00 AM EDT Hospital J95.860 Postprocedural J95.860 Diagnosis 08/28/2018 [place] hematoma of a 11:09:00 AM EDT Hospit al respiratory system organ or structure following a respiratory system procedure Y99.9 Unspecified external Y99.9 Diagnosis 08/28/2018 [facility] [place] [facility] cause status 11:09:00 AM EDT Hospita l Y93.9 Activity, unspecified Y93.9 Diagnosis 08/28/2018 [facility] [place] 11:09:00 AM EDT Hospital Y92.[address] or Y92.9 Diagnosis 08/28/2018 [facility] [place] not applicable 11:09:00 AM EDT Hospi luli X58.XXXA Exposure to other X58.XXXA Diagnosis 08/28/2018 Jareth harkins specified factors, 11:09:00 AM EDT H ospital initial encounter S27.321A Contusion of lung, S27.321A Diagnosis 08/28/2018 [place] unilateral, initial 11:09:00 AM EDT Hospital encounter F02.80 Dementia in other F02.80 Diagnosis 02/24/2018 Jareth harkins diseases classified 02:18:00 PM EST Hospital elsewhere without behavioral disturbance M54.16 Radiculopathy, lumbar M54.16 Diagnosis 02/24/2018 [facility] [place] region 02:18:00 PM EST Hospital M51.26 Other intervertebral M51.26 Diagnosis 02/24/2018 [facility] [place] disc displacement, 02:18:00 PM EST H ospital lumbar region F41.1 Generalized anxiety F41.1 Diagnosis 02/20/2018 [place] disorder 04:11:00 AM EST Hospital I10 Essential (primary) I10 Diagnosis 02/20/2018 [place] hypertension 04:11:00 AM EST Hospita l E11.9 Type 2 diabetes E11.9 Diagnosis 02/20/2018 [place] mellitus without 04:11:00 AM EST Hos pital complications G20 Parkinson's disease G20 Diagnosis 02/20/2018 [place] 04:11:00 AM EST Hospital N40.0 Benign prostatic N40.0 Diagnosis 02/20/[address] [place] hyperplasia without 04:11:00 AM EST Hospital lower urinary tract symptoms M51.16 Intervertebral disc M51.16 Diagnosis 02/20/2018 [place] disorders with 04:11:00 AM EST Hospi luli radiculopathy, lumbar region Surgeries/Procedures Procedure Description Date Indications Data Source(s) EKG EKG 02/24/2018 [place] (electrocardiogram) (electrocardiogram) 12:00:00 AM H ospital EST Computed tomography Computed tomography 02/24/2018 [place] of abdomen and of abdomen and pelvis 12:00:00 AM Hosp ital pelvis without without contrast EST contrast EKG EKG 02/20/2018 [place] (electrocardiogram) (electrocardiogram) 12:00:00 AM H ospital EST EKG EKG 02/20/2018 [place] (electrocardiogram) (electrocardiogram) 12:00:00 AM H ospital EST EKG EKG 02/20/2018 [place] (electrocardiogram) (electrocardiogram) 12:00:00 AM H ospital EST Results ID Date Data Source [id number] 11/16/2019 09:21:00 AM EDT [facility] Name Value Range Interpretation Description Data Sup porting Code Source(s) Document(s ) SARS [facility] coronavirus 2 RNA This lab was ordered by [facility] and reported by [facility]. ID Date Data Source [id number] 11/09/2019 08:30:00 AM EDT [facility] Name Value Range Interpretation Description Data Sup porting Code Source(s) Document(s ) SARS [facility] coronavirus 2 RNA This lab was ordered by [facility] and reported by [facility]. ID Date Data Source [id number] 02/24/2018 05:18:00 PM [facility] Value Range Interpretation Description Data Sup porting Code Source(s) Document(s ) Methicillin MRSA TARGET MRSA Screen [place] resistant DNA NOT [facility] Staphylococcus DETECTED Hospital aureus (MRSA) PATIENT IS DNA [Presence] PRESUMED in Unspecified NEGATIVE FOR specimen by MRSA Probe and target COLONIZATION amplification method ID Date Data Source [id number] 02/24/2018 04:55:00 PM [facility] Name Value Range Interpretation Description Data Sup porting Code Source(s) Document(s ) Leukocyte NEGATIVE NEG URINE [place] esterase LEUKOCYTES Hospital [Presence] in Urine by Test strip ID Date Data Source [id number] 02/24/2018 04:55:00 PM [facility] Name Value Range Interpretation Description Data Sup porting Code Source(s) Document(s ) Nitrite NEGATIVE NEG URINE NITRITES [place] [Presence] Hospital in Urine by Test strip ID Date Data Source [id number] 02/24/2018 04:55:00 PM [facility] Name Value Range Interpretation Description Data Sup porting Code Source(s) Document(s ) Erythrocytes NEGATIVE NEG URINE BLOOD [place] [#/volume] in Hospital Urine by Test strip ID Date Data Source [id number] 02/24/2018 04:55:00 PM [facility] Value Range Interpretation Description Data Sup porting Code Source(s) Document(s ) Bilirubin NEGATIVE NEG URINE BILIRUBIN [place] .total Hospital [Presence ] in Urine by Test strip ID Date Data Source [id number] 02/24/2018 04:55:00 PM [facility] Value Range Interpretation Description Data Sup porting Code Source(s) Document(s ) Urobilinogen 0.2 0.2-1.0 URINE [facility] [Units/volume] mg/dL UROBILINOGEN [facility] in Urine by [facility] Test strip ID Date Data Source [id number] 02/24/2018 04:55:00 PM [facility] Value Range Interpretation Description Data Sup porting Code Source(s) Document(s ) Ketones NEGATIVE NEG URINE KETONES [place] [[facility]] in Urine by Test strip ID Date Data Source [id number] 02/24/2018 04:55:00 PM [facility] Value Range Interpretation Code Description Data Supporting Source(s) Document(s ) Glucose 3+ NEG URINE GLUCOSE [place] [[facility] ] in Urine by Test strip ID Date Data Source [id number] 02/24/2018 04:55:00 PM [facility] Value Range Interpretation Description Data Sup porting Code Source(s) Document(s ) Protein NEGATIVE NEG URINE PROTEIN [place] [Presence] Hospital in Urine by Test strip ID Date Data Source [id number] 02/24/2018 04:55:00 PM [facility] Value Range Interpretation Code Description Data Malou rce(s) Supporting Document(s ) pH of 5.5 5.0-8.0 URINE PH [place] Urine by Hospital Test strip ID Date Data Source [id number] 02/24/2018 04:55:00 PM [facility] Value Range Interpretation Description Data Sup porting Code Source(s) Document(s ) Specific 1.027 1.003-1.0 URINE SPECIFIC [place] gravity of [facility] Urine by Test strip ID Date Data Source [id number] 02/24/2018 04:55:00 PM [facility] Value Range Interpretation Description Data Sup porting Code Source(s) Document(s ) Clarity in Urine CLEAR URINE CLARITY [facility] by Refractometry [facility] automated ID Date Data Source [id number] 02/24/2018 04:55:00 PM [facility] Value Range Interpretation Code Description Data Malou rce(s) Supporting Document(s ) Color of YELLOW URINE COLOR [place] Urine Hospital ID Date Data Source [id number] 02/24/2018 01:47:00 PM [facility] Value Range Interpretation Description Data Sup porting Code Source(s) Document(s ) Aspartate 12 U/L 10-48 AST [facility] aminotransferase [facility] [Enzymatic Hospital activity/volume] in Serum or Plasma ID Date Data Source [id number] 02/24/2018 01:47:00 PM [facility] Value Range Interpretation Description Data Sup porting Code Source(s) Document(s ) Alanine 18 U/L 10-40 ALANINE [facility] aminotransferase TRANSFERASE [facility] [Enzymatic Hospital activity/volume] in Serum or Plasma ID Date Data Source [id number] 02/24/2018 01:47:00 PM [facility] Value Range Interpretation Description Data Sup porting Code Source(s) Document(s ) Alkaline 56 U/L 41-147 ALKALINE [place] phosphatase PHOSPHATASE Hospital [Enzymatic activity/volum e] in Serum or Plasma ID Date Data Source [id number] 02/24/2018 01:47:00 PM [facility] Name Value Range Interpretation Description Data Sup porting Code Source(s) Document(s ) Bilirubin. 0.3 mg/dL 0.3-1.2 TOTAL [place] total BILIRUBIN Hospital [Mass/volu me] in Serum or Plasma ID Date Data Source [id number] 02/24/2018 01:47:00 PM [facility] Name Value Range Interpretation Description Data Sup porting Code Source(s) Document(s ) Albumin/Gl 1.8 1.0-2.1 ALBUMIN/GLOBULI [place] obulin N RATIO Hospital [Mass Ratio] in Serum or Plasma ID Date Data Source [id number] 02/24/2018 01:47:00 PM [facility] Name Value Range Interpretation Description Data Sup porting Code Source(s) Document(s ) Albumin 4.0 g/dL 3.4-4.8 ALBUMIN [place] [Mass/volum Hospital e] in Serum or Plasma ID Date Data Source [id number] 02/24/2018 01:47:00 PM [facility] Name Value Range Interpretation Description Data Sup porting Code Source(s) Document(s ) Protein 6.2 g/dL 5.7-8.2 TOTAL PROTEIN [place] [Mass/volum Hospital e] in Serum or Plasma ID Date Data Source [id number] 02/24/2018 01:47:00 PM [facility] Name Value Range Interpretation Description Data Sup porting Code Source(s) Document(s ) Calcium 9.8 mg/dL 8.3-10.6 CALCIUM [place] [Mass/volum Hospital e] in Serum or Plasma ID Date Data Source [id number] 02/24/2018 01:47:00 PM [facility] Name Value Range Interpretation Description Data Sup porting Code Source(s) Document(s ) Urea 24.3 6.0-20.0 Above high normal BUN/CREATININE [facility] [place] [facility] nitrogen/C RATIO Hospital reatinine [Mass Ratio] in Serum or Plasma ID Date Data Source [id number] 02/24/2018 01:47:00 PM [facility] Name Value Range Interpretation Description Data Sup porting Code Source(s) Document(s ) Creatinine 1.4 0.9-1.3 Above high normal CREATININE [facility] [Mass/volume] mg/dL Hospital in Serum or Plasma ID Date Data Source [id number] 02/24/2018 01:47:00 PM [facility] Name Value Range Interpretation Description Data Sup porting Code Source(s) Document(s ) Urea 34 mg/dL 6-20 Above high normal BLOOD UREA [facility] nitrogen NITROGEN Hospital [Mass/volume ] in Serum or Plasma ID Date Data Source [id number] 02/24/2018 01:47:00 PM [facility] Name Value Range Interpretation Code Description Data Malou rce(s) Supporting Document(s ) Anion gap in 10 6-18 ANION GAP [place] Serum or [facility] Plasma ID Date Data Source [id number] 02/24/2018 01:47:00 PM [facility] Value Range Interpretation Description Data Sup porting Code Source(s) Document(s ) Carbon 29 mmol/L 23-31 CARBON DIOXIDE [place] dioxide, Hospital total [Moles/vol ume] in Serum or Plasma ID Date Data Source [id number] 02/24/2018 01:47:00 PM [facility] Name Value Range Interpretation Description Data Sup porting Code Source(s) Document(s ) Chloride 99 mmol/L 98-107 CHLORIDE [place] [Moles/volum Hospital e] in Serum or Plasma ID Date Data Source [id number] 02/24/2018 01:47:00 PM [facility] Name Value Range Interpretation Description Data Sup porting Code Source(s) Document(s ) Potassium 4.9 3.5-5.3 POTASSIUM [place] [Moles/volume mmol/L Hospital ] in Serum or Plasma ID Date Data Source [id number] 02/24/2018 01:47:00 PM [facility] Name Value Range Interpretation Description Data Sup porting Code Source(s) Document(s ) Sodium 133 136-145 Below low normal SODIUM [place] [Moles/vol mmol/L Hospital ume] in Serum or Plasma ID Date Data Source [id number] 02/24/2018 01:47:00 PM [facility] Name Value Range Interpretation Description Data Sup porting Code Source(s) Document(s ) Glucose 384 mg/dL 74-106 Above high normal GLUCOSE [place] [Mass/volum Hospital e] in Serum or Plasma ID Date Data Source [id number] 02/24/2018 01:47:00 PM [facility] Name Value Range Interpretation Code Description Data Malou rce(s) Supporting Document(s ) 0.0 % 0-0.2 NUCLEATED RBCS [place] (AUTO DIFF%)DIS Hospital ID Date Data Source [id number] 02/24/2018 01:47:00 PM [facility] Value Range Interpretation Description Data Sup porting Code Source(s) Document(s ) Differential AUTOMATED DIFF TYPE [place] cell count Hospital method - Blood ID Date Data Source [id number] 02/24/2018 01:47:00 PM [facility] Name Value Range Interpretation Description Data Sup porting Code Source(s) Document(s ) Immature 0.14 0-0.3 IMM GRANS [place] granulocytes 10*3/uL (AUTO DIFF#) Hospital [#/volume] in Blood by Automated count ID Date Data Source [id number] 02/24/2018 01:47:00 PM [facility] Name Value Range Interpretation Description Data Sup porting Code Source(s) Document(s ) Basophils 0.04 0.0-0.1 BASOPHILS [place] [#/volume] 10*3/uL (AUTO DIFF #) Hospital in Blood by Automated count ID Date Data Source [id number] 02/24/2018 01:47:00 PM [facility] Value Range Interpretation Description Data Sup porting Code Source(s) Document(s ) Eosinophils 0.03 0.0-0.6 EOSINOPHILS [facility] [#/volume] in 10*3/uL (AUTO DIFF #) [facility] Blood by Hospital Automated count ID Date Data Source [id number] 02/24/2018 01:47:00 PM [facility] Value Range Interpretation Description Data Sup porting Code Source(s) Document(s ) Monocytes 0.54 0.0-1.2 MONOCYTES [place] [#/volume] 10*3/uL (AUTO DIFF #) Hospital in Blood by Automated count ID Date Data Source [id number] 02/24/2018 01:47:00 PM [facility] Value Range Interpretation Description Data Sup porting Code Source(s) Document(s ) Lymphocytes 1.13 1.2-3.5 Below low normal LYMPHOCYTES [facility] [#/volume] in 10*3/uL (AUTO DIFF #) [facility] Blood by Hospital Automated count ID Date Data Source [id number] 02/24/2018 01:47:00 PM [facility] Value Range Interpretation Description Data Sup porting Code Source(s) Document(s ) Neutrophils 6.20 1.5-6.6 NEUTROPHILS [facility] [#/volume] in 10*3/uL (AUTO DIFF #) [facility] Blood by Hospital Automated count ID Date Data Source [id number] 02/24/2018 01:47:00 PM [facility] Name Value Range Interpretation Description Data Sup porting Code Source(s) Document(s ) Nucleated 0.0 % 0-0.2 NUCLEATED RBCS [place] erythrocytes/1 (AUTO DIFF%) Hospital 00 leukocytes [Ratio] in Blood by Automated count ID Date Data Source [id number] 02/24/2018 01:47:00 PM [facility] Value Range Interpretation Description Data Sup porting Code Source(s) Document(s ) Immature 1.7 % 0-0.5 Above high normal IMM GRANS (AUTO [place] granulocytes/1 DIFF%) [facility] 00 leukocytes in Blood by Automated count ID Date Data Source [id number] 02/24/2018 01:47:00 PM [facility] Value Range Interpretation Description Data Sup porting Code Source(s) Document(s ) Basophils/100 0.5 % 0-1.0 BASOPHILS (AUTO [place] [facility] leukocytes in DIFF %) [facility] Blood by Automated count ID Date Data Source [id number] 02/24/2018 01:47:00 PM [facility] Value Range Interpretation Description Data Sup porting Code Source(s) Document(s ) Eosinophils/10 0.4 % 0-6.0 EOSINOPHILS [place] 0 leukocytes (AUTO DIFF %) Hospital in Blood by Automated count ID Date Data Source [id number] 02/24/2018 01:47:00 PM [facility] Value Range Interpretation Description Data Sup porting Code Source(s) Document(s ) Monocytes/100 6.7 % 4.0-12.0 MONOCYTES [place] leukocytes in (AUTO DIFF %) [facility] Blood by Automated count ID Date Data Source [id number] 02/24/2018 01:47:00 PM [facility] Value Range Interpretation Description Data Sup porting Code Source(s) Document(s ) Lymphocytes/1 14.0 % 20.0-48. Below low normal LYMPHOCYTES [facility] 00 leukocytes 0 (AUTO DIFF %) Hospital in Blood by Automated count ID Date Data Source [id number] 02/24/2018 01:47:00 PM [facility] Name Value Range Interpretation Description Data Sup porting Code Source(s) Document(s ) Neutrophils/1 76.7 % 40.0-75. Above high normal NEUTROPHILS [place] 00 leukocytes 0 (AUTO DIFF %) Hospital in Blood by Automated count ID Date Data Source [id number] 02/24/2018 01:47:00 PM [facility] Name Value Range Interpretation Description Data Sup porting Code Source(s) Document(s ) Platelet 10.9 fL 9.6-12.8 MEAN PLATELET [place] mean volume VOLUME Hospital [Entitic volume] in Blood by Automated count ID Date Data Source [id number] 02/24/2018 01:47:00 PM [facility] Name Value Range Interpretation Description Data Sup porting Code Source(s) Document(s ) Platelets 226 150-400 PLATELET COUNT [place] [#/volume] 10*3/uL Hospital in Blood by Automated count ID Date Data Source [id number] 02/24/2018 01:47:00 PM [facility] Value Range Interpretation Description Data Sup porting Code Source(s) Document(s ) Erythrocyte 11.4 % 11.5-14. Below low normal RED CELL [facility] distribution 5 DISTRIBUTION [facility] width [Ratio] WIDTH Hospital by Automated count ID Date Data Source [id number] 02/24/2018 01:47:00 PM [facility] Name Value Range Interpretation Description Data Sup porting Code Source(s) Document(s ) Erythrocyte mean 35.2 31.0-36. MEAN [facility] corpuscular g/dL 0 CORPUSCULAR [facility] hemoglobin HGB CONCEN Hospital concentration [Mass/volume] by Automated count ID Date Data Source [id number] 02/24/2018 01:47:00 PM [facility] Name Value Range Interpretation Description Data Sup porting Code Source(s) Document(s ) Erythrocyte 31.5 pg 27.0-34. MEAN [facility] mean 0 CORPUSCULAR [facility] corpuscular HEMOGLOBIN Hospital hemoglobin [Entitic mass] by Automated count ID Date Data Source [id number] 02/24/2018 01:47:00 PM [facility] Value Range Interpretation Description Data Sup porting Code Source(s) Document(s ) Erythrocyte 89.5 fL 80.0-96. MEAN [facility] mean 0 CORPUSCULAR [facility] corpuscular VOLUME Hospital volume [Entitic volume] by Automated count ID Date Data Source [id number] 02/24/2018 01:47:00 PM [facility] Value Range Interpretation Description Data Sup porting Code Source(s) Document(s ) Hematocrit 40.1 % 42.0-50.0 Below low normal HEMATOCRIT [place] [facility] [Volume Hospital Fraction] of Blood by Automated count ID Date Data Source [id number] 02/24/2018 01:47:00 PM [facility] Value Range Interpretation Description Data Sup porting Code Source(s) Document(s ) Hemoglobin 14.1 13.6-17. HEMOGLOBIN [place] [Mass/volume] g/dL 0 Hospital in Blood ID Date Data Source [id number] 02/24/2018 01:47:00 PM [facility] Value Range Interpretation Description Data Sup porting Code Source(s) Document(s ) Erythrocytes 4.48 4.50-5.9 Below low normal RED BLOOD [facility] [#/volume] in 10*6/uL 0 CELL COUNT [facility] Blood by Hospital Automated count ID Date Data Source [id number] 02/24/2018 01:47:00 PM EST [place] [facility] Name Value Range Interpretation Description Data Sup porting Code Source(s) Document(s ) Leukocytes 8.1 4.0-10.0 WHITE BLOOD [place] [#/volume] in 10*3/uL CELL COUNT [facility] Blood by Automated count ID Date Data Source [id number] 02/24/2018 01:24:00 PM [facility] Poundmaster: DARENSandyALISTAIR GONZALES ASMITA Name Value Range Interpretation Description Data Sup porting Code Source(s) Document(s ) Glucose 373 74-106 Above high normal METER GLUCOSE [facility] [Mass/volume] mg/dL Hospital in Capillary blood by Glucometer ID Date Data Source [id number] 02/20/2018 11:32:00 AM [facility] Poundmaster: [employer] Name Value Range Interpretation Description Data Sup porting Code Source(s) Document(s ) Glucose 176 74-106 Above high normal METER GLUCOSE [facility] [Mass/volume] mg/dL Hospital in Capillary blood by Glucometer ID Date Data Source [id number] 02/20/2018 02:54:00 AM [facility] Name Value Range Interpretation Description Data Sup porting Code Source(s) Document(s ) Cells Differential [place] Counted Total Cells [facility] Total [#] Counted in Blood ID Date Data Source [id number] 02/20/2018 02:54:00 AM [facility] Name Value Range Interpretation Code Description Data Malou rce(s) Supporting Document(s ) Platelet [facility] Comment ID Date Data Source [id number] 02/20/2018 02:54:00 AM [facility] Name Value Range Interpretation Code Description Data Malou rce(s) Supporting Document(s ) Red Cell [facility] Comment ID Date Data Source [id number] 02/20/2018 02:54:00 AM EST [place] [facility] Name Value Range Interpretation Description Data Sup porting Code Source(s) Document(s ) Neutrophils/10 Segmented [place] 0 leukocytes Neutrophils % Hospital in Blood by Manual count ID Date Data Source [id number] 02/20/2018 02:54:00 AM [facility] Name Value Range Interpretation Description Data Sup porting Code Source(s) Document(s ) Aspartate 21 U/L 10-48 AST [facility] aminotransferase [facility] [Enzymatic Hospital activity/volume] in Serum or Plasma ID Date Data Source [id number] 02/20/2018 02:54:00 AM [facility] Name Value Range Interpretation Description Data Sup porting Code Source(s) Document(s ) Alanine 21 U/L 10-40 ALANINE [facility] aminotransferase TRANSFERASE [facility] [Enzymatic Hospital activity/volume] in Serum or Plasma ID Date Data Source [id number] 02/20/2018 02:54:00 AM [facility] Value Range Interpretation Description Data Sup porting Code Source(s) Document(s ) Alkaline 47 U/L 41-147 ALKALINE [place] phosphatase PHOSPHATASE Hospital [Enzymatic activity/volum e] in Serum or Plasma ID Date Data Source [id number] 02/20/2018 02:54:00 AM [facility] Name Value Range Interpretation Description Data Sup porting Code Source(s) Document(s ) Bilirubin. 0.2 mg/dL 0.3-1.2 Below low normal TOTAL [place] total BILIRUBIN Hospital [Mass/volu me] in Serum or Plasma ID Date Data Source [id number] 02/20/2018 02:54:00 AM [facility] Value Range Interpretation Description Data Sup porting Code Source(s) Document(s ) Albumin/Gl 1.9 1.0-2.1 ALBUMIN/GLOBULI [place] obulin N RATIO Hospital [Mass Ratio] in Serum or Plasma ID Date Data Source [id number] 02/20/2018 02:54:00 AM [facility] Name Value Range Interpretation Description Data Sup porting Code Source(s) Document(s ) Albumin 4.2 g/dL 3.4-4.8 ALBUMIN [place] [Mass/volum Hospital e] in Serum or Plasma ID Date Data Source [id number] 02/20/2018 02:54:00 AM [facility] Name Value Range Interpretation Description Data Sup porting Code Source(s) Document(s ) Protein 6.4 g/dL 5.7-8.2 TOTAL PROTEIN [place] [Mass/volum Hospital e] in Serum or Plasma ID Date Data Source [id number] 02/20/2018 02:54:00 AM [facility] Value Range Interpretation Description Data Sup porting Code Source(s) Document(s ) Calcium 9.4 mg/dL 8.3-10.6 CALCIUM [place] [Mass/volum Hospital e] in Serum or Plasma ID Date Data Source [id number] 02/20/2018 02:54:00 AM [facility] Value Range Interpretation Description Data Sup porting Code Source(s) Document(s ) Urea 28.6 6.0-20.0 Above high normal BUN/CREATININE [facility] [place] [facility] nitrogen/C RATIO Hospital reatinine [Mass Ratio] in Serum or Plasma ID Date Data Source [id number] 02/20/2018 02:54:00 AM [facility] Name Value Range Interpretation Description Data Sup porting Code Source(s) Document(s ) Creatinine 1.0 0.9-1.3 CREATININE [place] [Mass/volume] mg/dL Hospital in Serum or Plasma ID Date Data Source [id number] 02/20/2018 02:54:00 AM [facility] Value Range Interpretation Description Data Sup porting Code Source(s) Document(s ) Urea 30 mg/dL 6-20 Above high normal BLOOD UREA [facility] nitrogen NITROGEN Hospital [Mass/volume ] in Serum or Plasma ID Date Data Source [id number] 02/20/2018 02:54:00 AM [facility] Value Range Interpretation Code Description Data Malou rce(s) Supporting Document(s ) Anion gap in 14 6-18 ANION GAP [place] Serum or [facility] Plasma ID Date Data Source [id number] 02/20/2018 02:54:00 AM [facility] Name Value Range Interpretation Description Data Sup porting Code Source(s) Document(s ) Carbon 25 mmol/L 23-31 CARBON DIOXIDE [place] dioxide, Hospital total [Moles/vol ume] in Serum or Plasma ID Date Data Source [id number] 02/20/2018 02:54:00 AM [facility] Value Range Interpretation Description Data Sup porting Code Source(s) Document(s ) Chloride 102 98-107 CHLORIDE [place] [Moles/volum mmol/L Hospital e] in Serum or Plasma ID Date Data Source [id number] 02/20/2018 02:54:00 AM [facility] Value Range Interpretation Description Data Sup porting Code Source(s) Document(s ) Potassium 4.7 3.5-5.3 POTASSIUM [place] [Moles/volume mmol/L Hospital ] in Serum or Plasma ID Date Data Source [id number] 02/20/2018 02:54:00 AM [facility] Name Value Range Interpretation Description Data Sup porting Code Source(s) Document(s ) Sodium 136 136-145 SODIUM [place] [Moles/vol mmol/L Hospital ume] in Serum or Plasma ID Date Data Source [id number] 02/20/2018 02:54:00 AM [facility] Name Value Range Interpretation Description Data Sup porting Code Source(s) Document(s ) Glucose 214 mg/dL 74-106 Above high normal GLUCOSE [place] [Mass/volum Hospital e] in Serum or Plasma ID Date Data Source [id number] 02/20/2018 02:54:00 AM [facility] Name Value Range Interpretation Code Description Data Malou rce(s) Supporting Document(s ) 0.0 % 0-0.2 NUCLEATED RBCS [place] (AUTO DIFF%)DIS Hospital ID Date Data Source [id number] 02/20/2018 02:54:00 AM [facility] Name Value Range Interpretation Description Data Sup porting Code Source(s) Document(s ) Differential MANUAL DIFF TYPE [place] cell count Hospital method - Blood ID Date Data Source [id number] 02/20/2018 02:54:00 AM [facility] Value Range Interpretation Description Data Sup porting Code Source(s) Document(s ) Platelet 11.2 fL 9.6-12.8 MEAN PLATELET [place] mean volume VOLUME Hospital [Entitic volume] in Blood by Automated count ID Date Data Source [id number] 02/20/2018 02:54:00 AM [facility] Value Range Interpretation Description Data Sup porting Code Source(s) Document(s ) Platelets 205 150-400 PLATELET COUNT [place] [#/volume] 10*3/uL Hospital in Blood by Automated count ID Date Data Source [id number] 02/20/2018 02:54:00 AM [facility] Name Value Range Interpretation Description Data Sup porting Code Source(s) Document(s ) Erythrocyte 11.4 % 11.5-14. Below low normal RED CELL [facility] distribution 5 DISTRIBUTION [facility] width [Ratio] WIDTH Hospital by Automated count ID Date Data Source [id number] 02/20/2018 02:54:00 AM [facility] Name Value Range Interpretation Description Data Sup porting Code Source(s) Document(s ) Erythrocyte mean 35.1 31.0-36. MEAN [facility] corpuscular g/dL 0 CORPUSCULAR [facility] hemoglobin HGB CONCEN Hospital concentration [Mass/volume] by Automated count ID Date Data Source [id number] 02/20/2018 02:54:00 AM [facility] Value Range Interpretation Description Data Sup porting Code Source(s) Document(s ) Erythrocyte 31.4 pg 27.0-34. MEAN [facility] mean 0 CORPUSCULAR [facility] corpuscular HEMOGLOBIN Hospital hemoglobin [Entitic mass] by Automated count ID Date Data Source [id number] 02/20/2018 02:54:00 AM [facility] Value Range Interpretation Description Data Sup porting Code Source(s) Document(s ) Erythrocyte 89.4 fL 80.0-96. MEAN [facility] mean 0 CORPUSCULAR [facility] corpuscular VOLUME Hospital volume [Entitic volume] by Automated count ID Date Data Source [id number] 02/20/2018 02:54:00 AM [facility] Value Range Interpretation Description Data Sup porting Code Source(s) Document(s ) Hematocrit 37.0 % 42.0-50.0 Below low normal HEMATOCRIT [facility] s [Volume Hospital Fraction] of Blood by Automated count ID Date Data Source [id number] 02/20/2018 02:54:00 AM [facility] Value Range Interpretation Description Data Sup porting Code Source(s) Document(s ) Hemoglobin 13.0 13.6-17. Below low normal HEMOGLOBIN [facility] s [Mass/volume] g/dL 0 Hospital in Blood ID Date Data Source [id number] 02/20/2018 02:54:00 AM [facility] Value Range Interpretation Description Data Sup porting Code Source(s) Document(s ) Erythrocytes 4.14 4.50-5.9 Below low normal RED BLOOD [facility] [#/volume] in 10*6/uL 0 CELL COUNT [facility] Blood by [facility] Automated count ID Date Data Source [id number] 02/20/2018 02:54:00 AM [facility] Value Range Interpretation Description Data Sup porting Code Source(s) Document(s ) Leukocytes 10.3 4.0-10.0 Above high normal WHITE BLOOD [facility] [#/volume] in 10*3/uL CELL COUNT [facility] Blood by Automated count ID Date Data Source [id number] 02/20/2018 02:54:00 AM [facility] Value Range Interpretation Description Data Sup porting Code Source(s) Document(s ) Aspartate 21 U/L 10-48 AST [facility] aminotransferase [facility] [Enzymatic Hospital activity/volume] in Serum or Plasma ID Date Data Source [id number] 02/20/2018 02:54:00 AM [facility] Value Range Interpretation Description Data Sup porting Code Source(s) Document(s ) Alanine 21 U/L 10-40 ALANINE [facility] aminotransferase TRANSFERASE [facility] [Enzymatic Hospital activity/volume] in Serum or Plasma ID Date Data Source [id number] 02/20/2018 02:54:00 AM [facility] Value Range Interpretation Description Data Sup porting Code Source(s) Document(s ) Alkaline 47 U/L 41-147 ALKALINE [place] phosphatase PHOSPHATASE Hospital [Enzymatic activity/volum e] in Serum or Plasma ID Date Data Source [id number] 02/20/2018 02:54:00 AM [facility] Value Range Interpretation Description Data Sup porting Code Source(s) Document(s ) Bilirubin. 0.2 mg/dL 0.3-1.2 Below low normal TOTAL [place] total BILIRUBIN Hospital [Mass/volu me] in Serum or Plasma ID Date Data Source [id number] 02/20/2018 02:54:00 AM [facility] Name Value Range Interpretation Description Data Sup porting Code Source(s) Document(s ) Albumin/Gl 1.9 1.0-2.1 ALBUMIN/GLOBULI [place] obulin N RATIO Hospital [Mass Ratio] in Serum or Plasma ID Date Data Source [id number] 02/20/2018 02:54:00 AM [facility] Name Value Range Interpretation Description Data Sup porting Code Source(s) Document(s ) Albumin 4.2 g/dL 3.4-4.8 ALBUMIN [place] [Mass/volum Hospital e] in Serum or Plasma ID Date Data Source [id number] 02/20/2018 02:54:00 AM [facility] Name Value Range Interpretation Description Data Sup porting Code Source(s) Document(s ) Protein 6.4 g/dL 5.7-8.2 TOTAL PROTEIN [place] [Mass/volum Hospital e] in Serum or Plasma ID Date Data Source [id number] 02/20/2018 02:54:00 AM [facility] Name Value Range Interpretation Description Data Sup porting Code Source(s) Document(s ) Calcium 9.4 mg/dL 8.3-10.6 CALCIUM [place] [Mass/volum Hospital e] in Serum or Plasma ID Date Data Source [id number] 02/20/2018 02:54:00 AM [facility] Name Value Range Interpretation Description Data Sup porting Code Source(s) Document(s ) Urea 28.6 6.0-20.0 Above high normal BUN/CREATININE [facility] nitrogen/C RATIO Hospital reatinine [Mass Ratio] in Serum or Plasma ID Date Data Source [id number] 02/20/2018 02:54:00 AM [facility] Name Value Range Interpretation Description Data Sup porting Code Source(s) Document(s ) Creatinine 1.0 0.9-1.3 CREATININE [place] [Mass/volume] mg/dL Hospital in Serum or Plasma ID Date Data Source [id number] 02/20/2018 02:54:00 AM [facility] Name Value Range Interpretation Description Data Sup porting Code Source(s) Document(s ) Urea 30 mg/dL 6-20 Above high normal BLOOD UREA [facility] nitrogen NITROGEN Hospital [Mass/volume ] in Serum or Plasma ID Date Data Source [id number] 02/20/2018 02:54:00 AM [facility] Name Value Range Interpretation Code Description Data Malou rce(s) Supporting Document(s ) Anion gap in 14 6-18 ANION GAP [place] Serum or [facility] Plasma ID Date Data Source [id number] 02/20/2018 02:54:00 AM [facility] Value Range Interpretation Description Data Sup porting Code Source(s) Document(s ) Carbon 25 mmol/L 23-31 CARBON DIOXIDE [place] dioxide, Hospital total [Moles/vol ume] in Serum or Plasma ID Date Data Source [id number] 02/20/2018 02:54:00 AM [facility] Name Value Range Interpretation Description Data Sup porting Code Source(s) Document(s ) Chloride 102 98-107 CHLORIDE [place] [Moles/volum mmol/L Hospital e] in Serum or Plasma ID Date Data Source [id number] 02/20/2018 02:54:00 AM [facility] Name Value Range Interpretation Description Data Sup porting Code Source(s) Document(s ) Potassium 4.7 3.5-5.3 POTASSIUM [place] [Moles/volume mmol/L Hospital ] in Serum or Plasma ID Date Data Source [id number] 02/20/2018 02:54:00 AM [facility] Name Value Range Interpretation Description Data Sup porting Code Source(s) Document(s ) Sodium 136 136-145 SODIUM [place] [Moles/vol mmol/L Hospital ume] in Serum or Plasma ID Date Data Source [id number] 02/20/2018 02:54:00 AM EST [facility] Name Value Range Interpretation Description Data Sup porting Code Source(s) Document(s ) Glucose 214 mg/dL 74-106 Above high normal GLUCOSE [place] [Mass/volum Hospital e] in Serum or Plasma ID Date Data Source [id number] 02/20/2018 02:54:00 AM EST [facility] Name Value Range Interpretation Code Description Data Malou rce(s) Supporting Document(s ) 0.0 % 0-0.2 NUCLEATED RBCS [place] (AUTO DIFF%)DIS Hospital ID Date Data Source [id number] 02/20/2018 02:54:00 AM EST [facility] Value Range Interpretation Description Data Sup porting Code Source(s) Document(s ) Differential MANUAL DIFF TYPE [place] cell count Hospital method - Blood ID Date Data Source [id number] 02/20/2018 02:54:00 AM EST [facility] Name Value Range Interpretation Description Data Sup porting Code Source(s) Document(s ) Cells 100 DIFF CELLS [place] Counted COUNTED Hospital Total [#] in Blood ID Date Data Source [id number] 02/20/2018 02:54:00 AM [facility] Value Range Interpretation Code Description Data Malou rce(s) Supporting Document(s ) NORMAL PLATELET COMMENT [place] Hospital ID Date Data Source [id number] 02/20/2018 02:54:00 AM EST [facility] Value Range Interpretation Code Description Data Malou rce(s) Supporting Document(s ) OCC SMUDGE CELLS [place] Hospital ID Date Data Source [id number] 02/20/2018 02:54:00 AM [facility] Name Value Range Interpretation Code Description Data Malou rce(s) Supporting Document(s ) OCC MELINA CELLS [place] Hospital ID Date Data Source [id number] 02/20/2018 02:54:00 AM [facility] Value Range Interpretation Description Data Sup porting Code Source(s) Document(s ) Monocytes 0.21 0.0-1.0 MONOCYTES (MAN [place] [#/volume] 10*3/uL DIFF #) Hospital in Blood by Manual count ID Date Data Source [id number] 02/20/2018 02:54:00 AM [facility] Value Range Interpretation Description Data Sup porting Code Source(s) Document(s ) Lymphocytes 0.72 1.2-3.5 Below low normal LYMPHOCYTES [facility] [#/volume] in 10*3/uL (MAN DIFF #) [facility] Blood by [facility] Manual count ID Date Data Source [id number] 02/20/2018 02:54:00 AM [facility] Value Range Interpretation Description Data Sup porting Code Source(s) Document(s ) Neutrophils 9.37 1.5-6.6 Above high normal NEUTROPHILS [facility] [#/volume] in 10*3/uL (MAN DIFF #) [facility] Blood by Hospital Manual count ID Date Data Source [id number] 02/20/2018 02:54:00 AM [facility] Value Range Interpretation Description Data Sup porting Code Source(s) Document(s ) Monocytes/100 2 % 2.0-12.0 MONOCYTES [place] leukocytes in Hospital Blood by Manual count ID Date Data Source [id number] 02/20/2018 02:54:00 AM [facility] Name Value Range Interpretation Description Data Sup porting Code Source(s) Document(s ) Variant 2 % 0-2.0 ATYPICAL [place] lymphocytes/10 LYMPHOCYTES Hospital 0 leukocytes in Blood by Manual count ID Date Data Source [id number] 02/20/2018 02:54:00 AM [facility] Name Value Range Interpretation Description Data Sup porting Code Source(s) Document(s ) Lymphocytes/10 5 % 20.0-48.0 Below low normal LYMPHOCYTES [place] 0 leukocytes Hospital in Blood by Manual count ID Date Data Source [id number] 02/20/2018 02:54:00 AM [facility] Name Value Range Interpretation Description Data Sup porting Code Source(s) Document(s ) Neutrophils/10 91 % 40.0-75. Above high normal SEGMENTED [facility] 0 leukocytes 0 NEUTROPHILS Hospital in Blood by Manual count ID Date Data Source [id number] 02/20/2018 02:54:00 AM [facility] Value Range Interpretation Description Data Sup porting Code Source(s) Document(s ) Platelet 11.2 fL 9.6-12.8 MEAN PLATELET [place] mean volume VOLUME Hospital [Entitic volume] in Blood by Automated count ID Date Data Source [id number] 02/20/2018 02:54:00 AM [facility] Value Range Interpretation Description Data Sup porting Code Source(s) Document(s ) Platelets 205 150-400 PLATELET COUNT [place] [#/volume] 10*3/uL Hospital in Blood by Automated count ID Date Data Source [id number] 02/20/2018 02:54:00 AM [facility] Value Range Interpretation Description Data Sup porting Code Source(s) Document(s ) Erythrocyte 11.4 % 11.5-14. Below low normal RED CELL [facility] distribution 5 DISTRIBUTION [facility] width [Ratio] WIDTH Hospital by Automated count ID Date Data Source [id number] 02/20/2018 02:54:00 AM [facility] Name Value Range Interpretation Description Data Sup porting Code Source(s) Document(s ) Erythrocyte mean 35.1 31.0-36. MEAN [facility] corpuscular g/dL 0 CORPUSCULAR [facility] hemoglobin HGB CONCEN Hospital concentration [Mass/volume] by Automated count ID Date Data Source [id number] 02/20/2018 02:54:00 AM [facility] Name Value Range Interpretation Description Data Sup porting Code Source(s) Document(s ) Erythrocyte 31.4 pg 27.0-34. MEAN [facility] mean 0 CORPUSCULAR [facility] corpuscular HEMOGLOBIN Hospital hemoglobin [Entitic mass] by Automated count ID Date Data Source [id number] 02/20/2018 02:54:00 AM [facility] Value Range Interpretation Description Data Sup porting Code Source(s) Document(s ) Erythrocyte 89.4 fL 80.0-96. MEAN [facility] mean 0 CORPUSCULAR [facility] corpuscular VOLUME Hospital volume [Entitic volume] by Automated count ID Date Data Source [id number] 02/20/2018 02:54:00 AM [facility] Value Range Interpretation Description Data Sup porting Code Source(s) Document(s ) Hematocrit 37.0 % 42.0-50.0 Below low normal HEMATOCRIT [place] s [Volume Hospital Fraction] of Blood by Automated count ID Date Data Source [id number] 02/20/2018 02:54:00 AM [facility] Value Range Interpretation Description Data Sup porting Code Source(s) Document(s ) Hemoglobin 13.0 13.6-17. Below low normal HEMOGLOBIN [place] [facility] [Mass/volume] g/dL 0 Hospital in Blood ID Date Data Source [id number] 02/20/2018 02:54:00 AM [facility] Value Range Interpretation Description Data Sup porting Code Source(s) Document(s ) Erythrocytes 4.14 4.50-5.9 Below low normal RED BLOOD [facility] [#/volume] in 10*6/uL 0 CELL COUNT [facility] Blood by Hospital Automated count ID Date Data Source [id number] 02/20/2018 02:54:00 AM [facility] Value Range Interpretation Description Data Sup porting Code Source(s) Document(s ) Leukocytes 10.3 4.0-10.0 Above high normal WHITE BLOOD [facility] [#/volume] in 10*3/uL CELL COUNT Hospital Blood by Automated count ID Date Data Source [id number] 02/20/2018 02:54:00 AM [facility] Value Range Interpretation Description Data Sup porting Code Source(s) Document(s ) Cells 100 DIFF CELLS [place] Counted COUNTED Hospital Total [#] in Blood ID Date Data Source [id number] 02/20/2018 02:54:00 AM [facility] Value Range Interpretation Code Description Data Malou rce(s) Supporting Document(s ) NORMAL PLATELET COMMENT [facility] ID Date Data Source [id number] 02/20/2018 02:54:00 AM [facility] Value Range Interpretation Code Description Data Malou rce(s) Supporting Document(s ) OCC SMUDGE CELLS [facility] ID Date Data Source [id number] 02/20/2018 02:54:00 AM [facility] Value Range Interpretation Code Description Data Malou rce(s) Supporting Document(s ) OCC MELINA CELLS [facility] ID Date Data Source [id number] 02/20/2018 02:54:00 AM EST [facility] Value Range Interpretation Description Data Sup porting Code Source(s) Document(s ) Monocytes 0.21 0.0-1.0 MONOCYTES (MAN [place] [#/volume] 10*3/uL DIFF #) Hospital in Blood by Manual count ID Date Data Source [id number] 02/20/2018 02:54:00 AM [facility] Name Value Range Interpretation Description Data Sup porting Code Source(s) Document(s ) Lymphocytes 0.72 1.2-3.5 Below low normal LYMPHOCYTES [facility] [#/volume] in 10*3/uL (MAN DIFF #) [facility] Blood by [facility] Manual count ID Date Data Source [id number] 02/20/2018 02:54:00 AM [facility] Name Value Range Interpretation Description Data Sup porting Code Source(s) Document(s ) Neutrophils 9.37 1.5-6.6 Above high normal NEUTROPHILS [facility] [#/volume] in 10*3/uL (MAN DIFF #) [facility] Blood by [facility] Manual count ID Date Data Source [id number] 02/20/2018 02:54:00 AM [facility] Value Range Interpretation Description Data Sup porting Code Source(s) Document(s ) Monocytes/100 2 % 2.0-12.0 MONOCYTES [place] leukocytes in Hospital Blood by Manual count ID Date Data Source [id number] 02/20/2018 02:54:00 AM [facility] Value Range Interpretation Description Data Sup porting Code Source(s) Document(s ) Variant 2 % 0-2.0 ATYPICAL [place] lymphocytes/10 LYMPHOCYTES Hospital 0 leukocytes in Blood by Manual count ID Date Data Source [id number] 02/20/2018 02:54:00 AM [facility] Name Value Range Interpretation Description Data Sup porting Code Source(s) Document(s ) Lymphocytes/10 5 % 20.0-48.0 Below low normal LYMPHOCYTES [place] 0 leukocytes Hospital in Blood by Manual count ID Date Data Source [id number] 02/20/2018 02:54:00 AM [facility] Name Value Range Interpretation Description Data Sup porting Code Source(s) Document(s ) Neutrophils/10 91 % 40.0-75. Above high normal SEGMENTED [facility] 0 leukocytes 0 NEUTROPHILS Hospital in Blood by Manual count ID Date Data Source [id number] 02/20/2018 02:43:00 AM [facility] Name Value Range Interpretation Description Data Sup porting Code Source(s) Document(s ) Leukocyte Urine Leukocyte [place] esterase Esterase Hospital [Presence] in Urine by Test strip ID Date Data Source [id number] 02/20/2018 02:43:00 AM [facility] Value Range Interpretation Code Description Data Supporting Source(s) Document(s ) Nitrite Urine Nitrite [place] [Presence] Hospital in Urine by Test strip ID Date Data Source [id number] 02/20/2018 02:43:00 AM [facility] Value Range Interpretation Description Data Sup porting Code Source(s) Document(s ) Erythrocytes Urine Blood [place] [#/volume] in Hospital Urine by Test strip ID Date Data Source [id number] 02/20/2018 02:43:00 AM [facility] Value Range Interpretation Code Description Data Supporting Source(s) Document(s ) Bilirubin. Urine Bilirubin [place] total Hospital [Presence] in Urine by Test strip ID Date Data Source [id number] 02/20/2018 02:43:00 AM [facility] Value Range Interpretation Description Data Sup porting Code Source(s) Document(s ) Urobilinogen Urine [place] [Units/volume] Urobilinogen Hospital in Urine by Test strip ID Date Data Source [id number] 02/20/2018 02:43:00 AM [facility] Value Range Interpretation Code Description Data Supporting Source(s) Document(s ) Ketones Urine Ketones [place] [Mass/volume Hospital ] in Urine by Test strip ID Date Data Source [id number] 02/20/2018 02:43:00 AM EST [place] [facility] Name Value Range Interpretation Description Data Sup porting Code Source(s) Document(s ) Glucose Urine Glucose [place] [Mass/volume (UA) Hospital ] in Urine by Test strip ID Date Data Source [id number] 02/20/2018 02:43:00 AM EST [place] [facility] Name Value Range Interpretation Code Description Data Supporting Source(s) Document(s ) Protein Urine Protein [place] [Presence] Hospital in Urine by Test strip ID Date Data Source [id number] 02/20/2018 02:43:00 AM EST [place] [facility] Name Value Range Interpretation Code Description Data Malou rce(s) Supporting Document(s ) pH of Urine Urine pH [place] by Test Hospital strip ID Date Data Source [id number] 02/20/2018 02:43:00 AM EST [place] [facility] Name Value Range Interpretation Description Data Sup porting Code Source(s) Document(s ) Specific Urine Specific [place] gravity of [facility] Urine by Test strip ID Date Data Source [id number] 02/20/2018 02:43:00 AM EST [place] [facility] Name Value Range Interpretation Description Data Sup porting Code Source(s) Document(s ) Clarity in Urine Urine Clarity [facility] by Refractometry Hospital automated ID Date Data Source [id number] 02/20/2018 02:43:00 AM EST [place] [facility] Name Value Range Interpretation Code Description Data Malou rce(s) Supporting Document(s ) Color of Urine Color [place] Urine Hospital ID Date Data Source [id number] 02/20/2018 02:43:00 AM EST [place] [facility] Name Value Range Interpretation Description Data Sup porting Code Source(s) Document(s ) Leukocyte Urine Leukocyte [place] esterase Esterase Hospital [Presence] in Urine by Test strip ID Date Data Source [id number] 02/20/2018 02:43:00 AM [facility] Name Value Range Interpretation Code Description Data Supporting Source(s) Document(s ) Nitrite Urine Nitrite [place] [Presence] Hospital in Urine by Test strip ID Date Data Source [id number] 02/20/2018 02:43:00 AM [facility] Name Value Range Interpretation Description Data Sup porting Code Source(s) Document(s ) Erythrocytes Urine Blood [place] [#/volume] in Hospital Urine by Test strip ID Date Data Source [id number] 02/20/2018 02:43:00 AM [facility] Value Range Interpretation Code Description Data Supporting Source(s) Document(s ) Bilirubin. Urine Bilirubin [place] total Hospital [Presence] in Urine by Test strip ID Date Data Source [id number] 02/20/2018 02:43:00 AM [facility] Name Value Range Interpretation Description Data Sup porting Code Source(s) Document(s ) Urobilinogen Urine [place] [Units/volume] Urobilinogen Hospital in Urine by Test strip ID Date Data Source [id number] 02/20/2018 02:43:00 AM [facility] Value Range Interpretation Code Description Data Supporting Source(s) Document(s ) Ketones Urine Ketones [place] [Mass/volume Hospital ] in Urine by Test strip ID Date Data Source [id number] 02/20/2018 02:43:00 AM [facility] Name Value Range Interpretation Description Data Sup porting Code Source(s) Document(s ) Glucose Urine Glucose [place] [Mass/volume (UA) Hospital ] in Urine by Test strip ID Date Data Source [id number] 02/20/2018 02:43:00 AM [facility] Name Value Range Interpretation Code Description Data Supporting Source(s) Document(s ) Protein Urine Protein [place] [Presence] Hospital in Urine by Test strip ID Date Data Source [id number] 02/20/2018 02:43:00 AM [facility] Name Value Range Interpretation Code Description Data Malou rce(s) Supporting Document(s ) pH of Urine Urine pH [place] by Test Hospital strip ID Date Data Source [id number] 02/20/2018 02:43:00 AM [facility] Name Value Range Interpretation Description Data Sup porting Code Source(s) Document(s ) Specific Urine Specific [place] gravity of [facility] Urine by Test strip ID Date Data Source [id number] 02/20/2018 02:43:00 AM [facility] Name Value Range Interpretation Description Data Sup porting Code Source(s) Document(s ) Clarity in Urine Urine Clarity [facility] by [facility] automated ID Date Data Source [id number] 02/20/2018 02:43:00 AM [facility] Name Value Range Interpretation Code Description Data Malou rce(s) Supporting Document(s ) Color of Urine Color [place] Urine Hospital Procedure Social History Code Duration Value Status Description Data Source(s ) Smoking Never smoked completed Never smoked tobacco [facility] [place] tobacco (finding) (finding) [facility] l Smoking Never smoked completed Never smoked tobacco [facility] [place] tobacco (finding) (finding) [facility] l Smoking Never smoked completed Never smoked tobacco [facility] [place] tobacco (finding) (finding) [facility] l Patient Treatment Plan of Care Planned Activity Planned Date Details Description Data Source (s) Lidocaine Hydrochloride 0.05 02/24/2018 [place] MG/MG Transdermal Patch 12:00:00 AM EST ospital [Lidoderm] Hydromorphone Hydrochloride 2 02/24/2018 [place] MG Oral Tablet [Dilaudid] 12:00:00 AM [facility] pregabalin 75 MG Oral Capsule 02/20/2018 [place] [Lyrica] 12:00:00 AM [facility] Hydromorphone Hydrochloride 2 02/20/2018 [place] MG Oral Tablet [Dilaudid] 12:00:00 AM [facility] Hospital Acetaminophen (Tylenol Extra 02/20/2018 [place] Strength*) 500 Mg Tablet 12:00:00 AM [facility] Hydromorphone Hydrochloride 2 02/20/2018 [place] MG Oral Tablet [Dilaudid] 12:00:00 AM [facility] pregabalin 75 MG Oral Capsule 02/20/2018 [place] [Lyrica] 12:00:00 AM [facility] Acetaminophen (Tylenol Extra 02/20/2018 [place] Strength*) 500 Mg Tablet 12:00:00 AM [facility] No known medications. [facility] Zolpidem tartrate 10 MG Oral [place] Tablet [Ambien] Hospital pregabalin 75 MG Oral Capsule [place] [Lyrica] Hospital pregabalin 100 MG Oral [place] Capsule [Lyrica] Hospital 24 HR metoprolol succinate 50 [place] MG Extended Release Oral Hos pital Tablet [Toprol] Escitalopram 10 MG Oral [facility] [place] Tablet [Lexapro] Hospital Donepezil hydrochloride 10 MG [place] Oral Tablet [Aricept] Hospit al Acetaminophen 300 MG / [place] Codeine Phosphate 30 MG Oral Hospital Tablet Zolpidem tartrate 10 MG Oral [place] Tablet Hospital 24 HR Metformin hydrochloride [place] 1000 MG / sitagliptin 50 MG Hospital Extended Release Oral Tablet [Janumet] Pramipexole dihydrochloride [place] 0.25 MG Oral Tablet Hospital pantoprazole 40 MG Delayed [facility] [place] Release Oral [facility]t [facility] [place]-3 Acid Ethyl Esters [facility] (SENIOR CARE) 1000 MG Oral Capsule H ospital [Lovaza] 24 HR metoprolol succinate 50 [place] MG Extended Release Oral Hos [facility]ital Tablet Hydroxyzine Hydrochloride 50 [place] MG Oral Tablet [facility] Hydrochlorothiazide 25 MG / [place] Lisinopril 20 MG Oral Tablet Hospital glimepiride 4 MG Oral Tablet [facility] Finasteride 5 MG Oral Tablet [facility] Escitalopram 10 MG [facility] Donepezil hydrochloride 23 MG [place] Oral Tablet Hospital Carbidopa 25 MG / Levodopa [facility] [place] 100 MG Oral [facility]t [facility] atorvastatin 10 MG [facility] Alprazolam 1 MG Oral Tablet [facility] Zolpidem tartrate 10 MG Oral [place] Tablet [Ambien] Hospital pregabalin 75 MG Oral Capsule [place] [Lyrica] Hospital pregabalin 100 MG Oral [place] Capsule [Lyrica] Hospital 24 HR metoprolol succinate 50 [place] MG Extended Release Oral Hos pital Tablet [Toprol] Escitalopram 10 MG Oral [facility] [place] Tablet [Lexapro] Hospital Donepezil hydrochloride 10 MG [place] Oral Tablet [Aricept] Hospit al Acetaminophen 300 MG / [place] Codeine Phosphate 30 MG Oral Hospital Tablet Zolpidem tartrate 10 MG Oral [place] Tablet [facility] 24 HR Metformin hydrochloride [place] 1000 MG / sitagliptin 50 MG Hospital Extended Release Oral Tablet [Janumet] Pramipexole dihydrochloride [place] 0.25 MG Oral Tablet Hospital pantoprazole 40 MG Delayed [facility] [place] Release [facility] [place]-3 Acid Ethyl Esters [facility] ([facility]) 1000 MG Oral Capsule H ospital [Lovaza] 24 HR metoprolol succinate 50 [place] MG Extended Release Oral Hos [facility]ital Tablet Hydroxyzine Hydrochloride 50 [place] [facility] Oral [facility]t [facility] Hydrochlorothiazide 25 MG / [place] Lisinopril 20 MG Oral Tablet [facility] glimepiride 4 MG Oral Tablet [facility] Finasteride 5 MG Oral Tablet [facility] Escitalopram 10 MG [facility] Donepezil hydrochloride 23 MG [place] Oral Tablet [facility] Carbidopa 25 MG / Levodopa [facility] [place] 100 MG Oral Tablet [facility] atorvastatin 10 MG [facility] Alprazolam 1 MG Oral Tablet [facility]
[2019-11-21] MEDS ORDERED: LIDOCAINE HCL/PF 1% SDV 5ML VIAL ONE (06:34)
[2019-11-21] MEDS ORDERED: POVIDONE-IODINE 5% OPHTHALMIC PREP 30 ML SOLUTION ONE (06:34)
[2019-11-21] MEDS ORDERED: TETRACAINE 0.5% OPHTH SOLN 2 ML BOTTLE ONE (06:34)
[2019-11-21] MEDS ORDERED: TOBRAMYCIN/DEXAMETHASONE OPHTH. OINTMENT 1 TUBE ONE (06:37)
[2019-11-21] MEDS ORDERED: CHONDROITIN SU A/HYALUR SOD 1 KIT ONE (06:37)
[2019-11-21] MEDS ORDERED: ACETAMINOPHEN 325 MG TABLET (FP) PO PRN (07:32)
[2019-11-21] MEDS ORDERED: CIPROFLOXACIN HCL 0.3% OPHTH 2.5ML BOTTLE ONE (09:33)
[2019-11-21] MEDS ORDERED: KETOROLAC TROMETHAMINE 0.5% EYE DROP 1 DROP DROPS ONE (09:33)
--- NOTE | 2019-11-21 09:48 | HP ---
- Patient Scheduled date of Surgery: 11/21/19 Scheduled Surgical Procedure: Phacoemulsification and cataract extraction with PCIOL Affected Eye: Right Chief Complaint (Indication for surgery): Decreased vision affecting ADLs (pap) - Ocular History Other Eye History: Other (papilloma rul) Eye Medications: vigamox , pred forte 0/3, bromfenac 0/1 Previous Eye Surgery: s/p ce/pciol OS - Medical History Illnesses: Diabetes, Other (lung CA s/p xrt , parkinson's dz , HTN , OA , dementia) Current Medications: Ambulatory Orders Alprazolam 1 mg PO TID PRN 06/20/18 Amlodipine Besylate 5 mg PO DAILY 06/20/18 Atorvastatin Ca [Lipitor] 10 mg PO HS 06/20/18 Carbidopa/Levodopa [Carbidopa-Levodopa 25-100 Tab] 1 each PO TID 06/20/18 Donepezil HCl 23 mg PO HS 06/20/18 Escitalopram Oxalate [Lexapro -] 10 mg PO DAILY 06/20/18 Finasteride 5 mg PO DAILY 06/20/18 Lisinopril/Hydrochlorothiazide [Lisinopril-Hctz 20-25 mg Tab] 1 each PO DAILY 06/20/18 Pantoprazole Sodium [Protonix] 40 mg PO DAILY 06/20/18 Pregabalin [Lyrica -] 75 mg PO BID 06/20/18 traZODone HCL [Trazodone HCl] 50 mg PO DAILY 06/20/18 Albuterol Sulfate [Albuterol Sulfate Hfa] 18 gm IH PRN 11/13/19 Ascorbic Acid [Vitamin C -] 1,000 mg PO DAILY 11/13/19 Magnesium Amino Acid Chelate [Magnesium] 50 mg PO DAILY 11/13/19 Vitamin E Acetate [Vitamin E] 1,000 unit PO DAILY 11/13/19 Metformin HCl [Glucophage] 500 mg PO BID 11/20/19 Allergies/Adverse Reactions: Allergies Allergy/AdvReac Type Severity Reaction Status Date / Time No Known Allergies Allergy Unverified 11/14/19 06:33 Ocular Examination - Best Corrected Visual Acuity Distance: Right eye: 20/40 Distance: Left eye: 20/25 - External/Slit Lamp Examination Abnormalities: white neoplasm upper lid, concretions - Intraocular Pressure Intraocular Pressure - Right eye: 14 Intraocular Pressure-Left eye: 16 - Lens Lens: 2+ NS 2+ cortical 1+ psc - Vitreous/Retina Vitreous/Retina: C:D 0.15 m//v/p wnl - Special Examination M - Right eye: +2.00 -0.50 x 132 M - Left eye: +0.25 K - Right eye: 42.75/43 x071 K - Left eye: 42/42.25 x 145 AL - Right eye: 23.86 AL - Left eye: 24.03 IOL bag: +20.5 AUOOTO IOL sulcus: +19.5 [id number] IOL AC: +17.5 MTA 4UO - Impression Impression: Cataract Right Eye - Plan Plan: Phacoemulsification and cataract extraction - IOL Right eye Post-hospital care will be provided in office on: 11/22/19
--- NOTE | 2019-11-21 09:49 | HP ---
History & Physical Update - History History: No Change - Physical Physical: No Change - Assessment Assessment: No Change - Plan Plan: No Change (11/07/2019 H and P reviewed from Dr. Crystal, no changes)
[2019-11-21] MEDS: CIPROFLOXACIN HCL 0.3% OPHTH 2.5ML BOTTLE OP SCH ×3 (10:00→10:30)
[2019-11-21] MEDS ORDERED: TROPICAMIDE 1% OPHTH SOLN 15 ML BOTTLE ONE (10:05)
[2019-11-21] MEDS: KETOROLAC TROMETHAMINE 0.5% EYE DROP 1 DROP DROPS OP SCH ×3 (10:10→10:20)
[2019-11-21] MEDS: TROPICAMIDE 1% OPHTH SOLN 15 ML BOTTLE OP SCH ×3 (10:10→10:20)
[2019-11-21] MEDS: PHENYLEPHRINE 2.5% OPHTH SOLN 15 ML BOTTLE OP SCH ×3 (10:10→10:20)
[2019-11-21] MEDS ORDERED: PROPOFOL 20 ML ONE (10:55)
[2019-11-21] MEDS ORDERED: KETAMINE HCL 200 MG/20 ML VIAL ONE (10:55)
[2019-11-21] MEDS ORDERED: BUPIVACAINE HCL/PF 0.75% 10 ML VIAL RB ONE (11:00)
[2019-11-21] MEDS ORDERED: LIDOCAINE HCL/PF 2% SDV 5ML VIAL PNB ONE (11:00)
[2019-11-21] MEDS ORDERED: POVIDONE-IODINE 5% OPHTHALMIC PREP 30 ML SOLUTION OD ONE (11:03)
[2019-11-21] MEDS ORDERED: CHONDROITIN SU A/HYALUR SOD 1 KIT IO ONE (11:06)
[2019-11-21] MEDS ORDERED: BSS (NA/CA/MG/K) BALANCED SALT SOLUTION OPHTH SOLN 15 ML BOTTLE OD ONE (11:06)
[2019-11-21] MEDS ORDERED: EPINEPHrine/PF 1 MG/1 ML (1:1,000) AMPULE SQ ONE (11:14)
[2019-11-21] MEDS ORDERED: TOBRAMYCIN/DEXAMETHASONE OPHTH. OINTMENT 1 TUBE OD ONE (11:27)
--- NOTE | 2019-11-21 11:34 | OP ---
Ophthalmology Operative Note Pre-Operative Diagnosis: Cataract Affected Eye: Right Operation: Phacoemulsification and cataract extraction with PCIOL Findings: Ns Cataract right eye Post-Operative Diagnosis: Same as Pre-op [place] Supervisor: None Anesthesiologist: Justin Lancaster Anesthesia: Retrobulbar Specimens Removed: none Estimated blood loss: < 1 cc Operative Report Dictated: Yes
[2019-11-21 13:58] VITALS: BP 132/52; PULSE 68; TEMP 98.4
--- NOTE | 2019-11-22 16:47 | OP ---
DATE OF OPERATION: 11/21/2019 PREOPERATIVE DIAGNOSIS: Nuclear sclerotic cataract, right eye. POSTOPERATIVE DIAGNOSIS: Nuclear sclerotic cataract, right eye. PROCEDURE: Phacoemulsification and cataract extraction with insertion of posterior chamber intraocular lens, right eye. SURGEON: Jeff Downey MD TOUR GUIDE: None. ANESTHESIA: Retrobulbar block. ANESTHESIOLOGIST: Justin Lancaster MD. OPERATIVE PROCEDURE: Following satisfactory intravenous sedation, the patient received local anesthesia using a 50:50 mixture of 2% lidocaine and Marcaine. A van Lint lid block was delivered to the right eye using 4.5 mL of the mixture and a retrobulbar injection using 4 mL of the mixture. The patient was then prepped and draped in the usual sterile fashion so as to expose only the right eye. Ophthalmic Betadine was instilled into the inferior fornix and lashes were taped out of the surgical field. An eyelid speculum was placed into the right eye. Paracentesis was made in superior temporal clear cornea at the limbus. Then 1 mL of dilute epinephrine 1:10,000 was injected into the anterior chamber to improve pupillary dilation. Viscoelastic material was instilled into the anterior chamber via the paracentesis. A 2.4-mm keratome blade was then used to create the main incision in temporal clear cornea at the limbus. A continuous curvilinear capsulorrhexis was performed using a cystotome and Utrata forceps. Hydrodissection of the lens cortex was performed using BSS on a cannula until the nucleus was noted to be freely rotating. The phacoemulsification tip was then inserted via the main wound and used to scope 2 perpendicular grooves into the lens nucleus. The nucleus was cracked into 4 quadrants. Each quadrant was lifted out of the capsule into the iris plane and individually phacoemulsified. The remaining cortical material was then aspirated using the irrigation/aspiration port. The capsular bag was inflated using ProVisc and a preloaded AcrySof lens model [id number] power +20.5 diopters was injected into the capsular bag. It was centered using a Sinskey hook. The residual viscoelastic material was removed from the anterior chamber using irrigation and aspiration. The wound edges were hydrated using BSS. The wound was tested for leakage and was found to be watertight. Tobradex ointment was placed in the eye, and the speculum was removed from the eye, and the eyelid was closed. A sterile dressing and shield were placed over the eye. The patient was transferred to the recovery room in stable condition, told to follow up in 1 day. JEFF DOWNEY M.D. [id number]
== END 2019-11-21 13:00 | disposition home or self-care (01) ==
LOC: JASU-SURG 04:37
PROVIDERS: ATTEND Ophthalmology
PROC: 08RJ3JZ Replacement of Right Lens with Synthetic Substitute, Percutaneous Approach (ICD-10-PCS; principal; 2019-11-21 10:30)
DX: H25.11 Age-related nuclear cataract, right eye (principal)

== ENCOUNTER 2021-08-22 03:54 | Emergency (ER) | payer BC, OTHER ==
[2021-08-22 04:08] VITALS: BP 162/69; PULSE 77; TEMP 98.1; BMI 23.6
[2021-08-22] MEDS ORDERED: LOPERAMIDE HCL 2 MG CAPSULE PO ONE (05:06)
[2021-08-22] MEDS ORDERED: LOPERAMIDE HCL 2 MG CAPSULE ONE (05:09)
== END 2021-08-22 05:14 | disposition home or self-care (01) ==
LOC: JER 03:54
DX: E16.2 Hypoglycemia, unspecified (principal)
CPT/HCPCS: 82962; 99283-25

== ENCOUNTER 2021-10-10 00:22 | Observation (INO) | payer BC, OTHER ==
[2021-10-10 01:21] VITALS: BMI 22.7
[2021-10-10 03:54] LABS: HEMATOCRIT 31.9 % (35.4-49); HEMOGLOBIN 11.5 GM/dL (11.7-16.9); MCH 30.5 pg (25.7-33.7); MCHC 36.1 g/dl (32.0-35.9); MEAN CELL VOLUME 84.5 fl (80-96); MEAN PLT VOLUME 7.9 fl (7.5-11.1); PLATELET COUNT 298 10^3/uL (134-434); RBC 3.78 M/mm3 (4.00-5.60); RDW 13.7 % (11.9-15.9); WHITE BLOOD COUNT 10.4 K/mm3 (4.0-10.0)
[2021-10-10 04:05] LABS: INR 1.04 (0.83-1.09)
[2021-10-10 04:08] LABS: ACTIVATED PTT 32.3 SECONDS (25.2-36.5)
[2021-10-10] MEDS ORDERED: guaiFENesin/D-M SUGAR-FREE/ACLHOL-FREE 118 ML BOTTLE PO ONE (04:11)
[2021-10-10 04:14] LABS: CALCIUM 9.6 mg/dL (8.5-10.1)
[2021-10-10 04:15] LABS: ALBUMIN 2.9 g/dl (3.4-5.0); BLOOD UREA NITROGEN 15.9 mg/dL (7-18); MAGNESIUM 1.3 mg/dL (1.8-2.4)
[2021-10-10 04:18] LABS: PHOSPHOROUS 2.4 mg/dL (2.5-4.9)
[2021-10-10 04:19] LABS: BILIRUBIN,TOTAL 0.2 mg/dL (0.2-1); TOT PROT 6.8 g/dl (6.4-8.2)
[2021-10-10] MEDS ORDERED: MAGNESIUM SULF 50% (8.12 MEQ/2 ML-1 GM VIAL) IVPB ONE (06:16)
[2021-10-10] MEDS ORDERED: guaiFENesin/CODEINE 10 ML UNIT-DOSE CUPS PO ONE (06:26)
[2021-10-10] MEDS ORDERED: guaiFENesin/CODEINE 5 ML UNIT-DOSE CUPS PO ONE ×3 (07:13→20:13)
[2021-10-10] MEDS ORDERED: MAGNESIUM SULFATE IN WATER 2 GM/50 ML IVPB IVPB ONE (07:14)
[2021-10-10 09:40] LABS: ANISOCYTOSIS 0; MACROCYTOSIS 0; PLATELET ESTIMATE NORMAL
[2021-10-10] MEDS ORDERED: guaiFENesin/CODEINE 5 ML UNIT-DOSE CUPS PO PRN (13:05)
[2021-10-10] MEDS ORDERED: ACETAMINOPHEN 325 MG TABLET (FP) PO PRN (13:08)
[2021-10-10] MEDS ORDERED: ALBUTEROL SO4 HFA INHALER IH PRN (13:15)
[2021-10-10] MEDS ORDERED: PANTOPRAZOLE 40 MG TABLET PO ONE (14:23)
[2021-10-10] MEDS ORDERED: amLODIPine BESYLATE 5 MG TABLET (FP) ONE (14:23)
[2021-10-10] MEDS ORDERED: ALBUTEROL SO4 2.5/IPRATROPIUM 0.5 INH SOL 3 ML VIAL.NEB. NEB ONE (14:23)
[2021-10-10] MEDS ORDERED: CARBIDOPA/LEVODOPA 25/100 TABLET (FP) ONE (14:24)
[2021-10-10] MEDS ORDERED: CEFTRIAXONE 1 GM/50 ML BAG ONE (14:24)
[2021-10-10] MEDS ORDERED: methylPREDNISolone NA SUCC 40 MG/1 ML VIAL ONE ×2 (14:24→17:25)
[2021-10-10] MEDS: PANTOPRAZOLE 40 MG TABLET PO SCH (14:34)
[2021-10-10] MEDS: CEFTRIAXONE 1 GM in DEXTROSE 5%-WATER - 50 ML IVPB SCH (14:34)
[2021-10-10] MEDS: methylPREDNISolone NA SUCC 40 MG/1 ML VIAL IVPUSH SCH ×2 (14:34→17:29)
[2021-10-10] MEDS: CARBIDOPA/LEVODOPA 25/100 TABLET (FP) PO SCH ×2 (14:34→23:40)
[2021-10-10] MEDS: amLODIPine BESYLATE 5 MG TABLET (FP) PO SCH (14:34)
[2021-10-10] MEDS: ALBUTEROL SO4 2.5/IPRATROPIUM 0.5 INH SOL 3 ML VIAL.NEB. NEB SCH ×3 (14:39→20:15)
[2021-10-10] MEDS: FINASTERIDE 5 MG TABLET (FP) PO SCH (17:10)
[2021-10-10] MEDS ORDERED: metFORMIN HCL 500 MG TABLET (FP) ONE (17:25)
[2021-10-10] MEDS: metFORMIN HCL 500 MG TABLET (FP) PO SCH (17:29)
[2021-10-10] MEDS ORDERED: ALBUTEROL SO4 HFA INHALER IH ONE (20:13)
[2021-10-10] MEDS: DONEPEZIL HCL 10 MG TABLET (FP) PO SCH (22:56)
[2021-10-10] MEDS: PREGABALIN 75 MG CAPSULE PO SCH (22:56)
[2021-10-10] MEDS: ATORVASTATIN CA 10 MG TABLET (FP) PO SCH (22:56)
[2021-10-10] MEDS: traZODone HCL 50 MG TABLET (FP) PO SCH (22:56)
[2021-10-11] MEDS: ALPRAZolam 1 MG TABLET PO PRN ×2 (01:38→22:01)
[2021-10-11] MEDS: methylPREDNISolone NA SUCC 40 MG/1 ML VIAL IVPUSH SCH ×3 (01:39→18:36)
[2021-10-11] MEDS: ALBUTEROL SO4 2.5/IPRATROPIUM 0.5 INH SOL 3 ML VIAL.NEB. NEB SCH ×6 (01:48→20:05)
[2021-10-11] MEDS ORDERED: INSULIN (NOVOLOG) ASPART 100 UNITS/ML 10ML VIAL SQ ONE (05:58)
[2021-10-11] MEDS: CARBIDOPA/LEVODOPA 25/100 TABLET (FP) PO SCH ×3 (06:14→21:56)
[2021-10-11] MEDS: metFORMIN HCL 500 MG TABLET (FP) PO SCH ×2 (06:14→16:57)
[2021-10-11 07:15] LABS: MCH 29.9 pg (25.7-33.7); MCHC 35.5 g/dl (32.0-35.9); MEAN CELL VOLUME 84.2 fl (80-96); MEAN PLT VOLUME 8.2 fl (7.5-11.1); PLATELET COUNT 282 10^3/uL (134-434); RBC 3.68 M/mm3 (4.00-5.60); RDW 13.2 % (11.9-15.9); WHITE BLOOD COUNT 10.6 K/mm3 (4.0-10.0)
[2021-10-11 07:37] LABS: CHLORIDE 99 mmol/L (98-107); SODIUM 134 mmol/L (136-145)
[2021-10-11 07:43] LABS: ANION GAP 9 MMOL/L (8-16); BLOOD UREA NITROGEN 34.3 mg/dL (7-18); CALCIUM 8.7 mg/dL (8.5-10.1); CO2 27 mmol/L (21-32)
[2021-10-11 07:44] LABS: ALBUMIN 2.7 g/dl (3.4-5.0)
[2021-10-11 07:45] LABS: CREATININE 1.3 mg/dL (0.55-1.3); SGPT/ALT 7 U/L (13-61)
[2021-10-11 07:47] LABS: BILIRUBIN,TOTAL 0.2 mg/dL (0.2-1); SGOT/AST 9 U/L (15-37); TOT PROT 6.3 g/dl (6.4-8.2)
[2021-10-11 07:48] LABS: ALK PHOS 79 U/L (45-117)
[2021-10-11 07:58] LABS: GLUCOSE,RANDOM 431 mg/dL (74-106)
[2021-10-11] MEDS: ENOXAPARIN NA (PORCINE) 40 MG/0.4 ML DISP.SYRIN SQ SCH (09:29)
[2021-10-11 09:30] LABS: ANISOCYTOSIS 0; MACROCYTOSIS 0
[2021-10-11] MEDS: FINASTERIDE 5 MG TABLET (FP) PO SCH (09:30)
[2021-10-11] MEDS: MAGNESIUM OXIDE 400 MG TABLET (FP) PO SCH (09:30)
[2021-10-11] MEDS: LISINOPRIL 10 MG TABLET PO SCH (09:30)
[2021-10-11] MEDS: ESCITALOPRAM OXALATE 10 MG TABLET PO SCH (09:30)
[2021-10-11] MEDS: ASCORBIC ACID 500 MG TABLET (FP) PO SCH (09:30)
[2021-10-11] MEDS: HYDROCHLOROTHIAZIDE 25 MG TABLET (FP) PO SCH (09:30)
[2021-10-11] MEDS: CEFTRIAXONE 1 GM in DEXTROSE 5%-WATER - 50 ML IVPB SCH (09:30)
[2021-10-11] MEDS: amLODIPine BESYLATE 5 MG TABLET (FP) PO SCH (09:31)
[2021-10-11] MEDS: PREGABALIN 75 MG CAPSULE PO SCH ×2 (09:31→21:56)
[2021-10-11] MEDS: PANTOPRAZOLE 40 MG TABLET PO SCH (09:31)
[2021-10-11] MEDS ORDERED: amLODIPine BESYLATE 5 MG TABLET (FP) PO SCH (10:00)
[2021-10-11] MEDS ORDERED: PATIENT'S OWN MEDICATION (NON-FORMULARY) (Lisinopril/Hydrochlorothiazide [Lisinopril-Hctz PO SCH (10:00)
[2021-10-11] MEDS: INSULIN SLIDING SCALE (NOVOLOG) 1 VIAL SQ SCH ×3 (12:23→21:57)
[2021-10-11] MEDS: INSULIN (LEVEMIR) 100 UNITS/ML UNITS SQ SCH ×2 (12:24→21:56)
[2021-10-11] MEDS: ATORVASTATIN CA 10 MG TABLET (FP) PO SCH (21:56)
[2021-10-11] MEDS: traZODone HCL 50 MG TABLET (FP) PO SCH (21:56)
[2021-10-11] MEDS: DONEPEZIL HCL 10 MG TABLET (FP) PO SCH (21:56)
[2021-10-12] MEDS: ALBUTEROL SO4 2.5/IPRATROPIUM 0.5 INH SOL 3 ML VIAL.NEB. NEB SCH ×7 (00:10→20:35)
[2021-10-12] MEDS: methylPREDNISolone NA SUCC 40 MG/1 ML VIAL IVPUSH SCH ×3 (01:10→17:01)
[2021-10-12] MEDS: INSULIN SLIDING SCALE (NOVOLOG) 1 VIAL SQ SCH ×4 (06:09→21:39)
[2021-10-12] MEDS: metFORMIN HCL 500 MG TABLET (FP) PO SCH ×2 (06:11→16:53)
[2021-10-12] MEDS: CARBIDOPA/LEVODOPA 25/100 TABLET (FP) PO SCH ×3 (06:11→21:24)
[2021-10-12] MEDS: amLODIPine BESYLATE 5 MG TABLET (FP) PO SCH (09:16)
[2021-10-12] MEDS: PREGABALIN 75 MG CAPSULE PO SCH ×2 (09:16→21:24)
[2021-10-12] MEDS: ESCITALOPRAM OXALATE 10 MG TABLET PO SCH (09:16)
[2021-10-12] MEDS: ENOXAPARIN NA (PORCINE) 40 MG/0.4 ML DISP.SYRIN SQ SCH (09:16)
[2021-10-12] MEDS: FINASTERIDE 5 MG TABLET (FP) PO SCH (09:16)
[2021-10-12] MEDS: HYDROCHLOROTHIAZIDE 25 MG TABLET (FP) PO SCH (09:16)
[2021-10-12] MEDS: LISINOPRIL 10 MG TABLET PO SCH (09:16)
[2021-10-12] MEDS: MAGNESIUM OXIDE 400 MG TABLET (FP) PO SCH (09:17)
[2021-10-12] MEDS: CEFTRIAXONE 1 GM in DEXTROSE 5%-WATER - 50 ML IVPB SCH (09:17)
[2021-10-12] MEDS: PANTOPRAZOLE 40 MG TABLET PO SCH (09:17)
[2021-10-12] MEDS: ASCORBIC ACID 500 MG TABLET (FP) PO SCH (09:17)
[2021-10-12] MEDS ORDERED: sitaGLIPtin PHOSPHATE 50 MG TABLET PO ONE (10:47)
[2021-10-12] MEDS: ALPRAZolam 1 MG TABLET PO PRN (21:24)
[2021-10-12] MEDS: traZODone HCL 50 MG TABLET (FP) PO SCH (21:24)
[2021-10-12] MEDS: DONEPEZIL HCL 10 MG TABLET (FP) PO SCH (21:24)
[2021-10-12] MEDS: ATORVASTATIN CA 10 MG TABLET (FP) PO SCH (21:24)
[2021-10-12] MEDS: INSULIN (LEVEMIR) 100 UNITS/ML UNITS SQ SCH (21:39)
[2021-10-13] MEDS: ALBUTEROL SO4 2.5/IPRATROPIUM 0.5 INH SOL 3 ML VIAL.NEB. NEB SCH ×4 (00:40→11:47)
[2021-10-13] MEDS: methylPREDNISolone NA SUCC 40 MG/1 ML VIAL IVPUSH SCH ×2 (01:33→09:20)
[2021-10-13] MEDS: CARBIDOPA/LEVODOPA 25/100 TABLET (FP) PO SCH ×2 (06:32→13:55)
[2021-10-13] MEDS: metFORMIN HCL 500 MG TABLET (FP) PO SCH (06:33)
[2021-10-13] MEDS: INSULIN SLIDING SCALE (NOVOLOG) 1 VIAL SQ SCH ×2 (06:34→11:37)
[2021-10-13] MEDS ORDERED: sitaGLIPtin PHOSPHATE 50 MG TABLET PO SCH (07:00)
[2021-10-13 07:42] VITALS: RESP 18
[2021-10-13 08:22] VITALS: BP 144/79; PULSE 69; TEMP 98
[2021-10-13] MEDS: ENOXAPARIN NA (PORCINE) 40 MG/0.4 ML DISP.SYRIN SQ SCH (09:18)
[2021-10-13] MEDS: ESCITALOPRAM OXALATE 10 MG TABLET PO SCH (09:19)
[2021-10-13] MEDS: LISINOPRIL 10 MG TABLET PO SCH (09:19)
[2021-10-13] MEDS: ASCORBIC ACID 500 MG TABLET (FP) PO SCH (09:19)
[2021-10-13] MEDS: PREGABALIN 75 MG CAPSULE PO SCH (09:19)
[2021-10-13] MEDS: amLODIPine BESYLATE 5 MG TABLET (FP) PO SCH (09:19)
[2021-10-13] MEDS: CEFTRIAXONE 1 GM in DEXTROSE 5%-WATER - 50 ML IVPB SCH (09:19)
[2021-10-13] MEDS: PANTOPRAZOLE 40 MG TABLET PO SCH (09:19)
[2021-10-13] MEDS: FINASTERIDE 5 MG TABLET (FP) PO SCH (09:19)
[2021-10-13] MEDS: HYDROCHLOROTHIAZIDE 25 MG TABLET (FP) PO SCH (09:19)
[2021-10-13] MEDS: MAGNESIUM OXIDE 400 MG TABLET (FP) PO SCH (09:19)
== END 2021-10-13 14:00 | disposition home health service (06) ==
LOC: JER 00:22 → JERBED 06:13 → J4W 22:42
PROVIDERS: ADMIT Internal Medicine; ATTEND Internal Medicine
PROC: 3E0F7GC Introduction of Other Therapeutic Substance into Respiratory Tract, Via Natural or Artificial Opening (ICD-10-PCS; principal; 2021-10-10)
PROC: 3E03329 Introduction of Other Anti-infective into Peripheral Vein, Percutaneous Approach (ICD-10-PCS; 2021-10-10)
PROC: 3E023GC Introduction of Other Therapeutic Substance into Muscle, Percutaneous Approach (ICD-10-PCS; 2021-10-10)
PROC: 3E013VG Introduction of Insulin into Subcutaneous Tissue, Percutaneous Approach (ICD-10-PCS; 2021-10-10)
PROC: 3E033GC Introduction of Other Therapeutic Substance into Peripheral Vein, Percutaneous Approach (ICD-10-PCS; 2021-10-10)
DX: R07.9 Chest pain, unspecified (principal); R05.9 Cough, unspecified; Z85.118 Personal history of other malignant neoplasm of bronchus and lung; I10 Essential (primary) hypertension; R91.1 Solitary pulmonary nodule
CPT/HCPCS: 0241U-QW; 36415; 71275-TC; 80053; 82962; 83036; 83735; 84100; 84484; 85025; 85610; 85730; 93005; 93010; 94640; 99285-25; G0378; Q9967